=== PATIENT | female | born 1940 | race Caucasian/White ===

== ENCOUNTER 2020-08-05 11:02 | Outpatient (CLI) | payer MEDICARE, SELFPAY ==
--- NOTE | ~2020-08-05 | MM_ITS ---
EXAMINATION: MM scrn mayra implant BI w abilio HISTORY: Screening mammogram TECHNIQUE: Craniocaudal and mediolateral oblique 3-D tomosynthesis images with implant displacement a nd synthetic 2-D images were generated. Craniocaudal and mediolateral oblique views of the breasts wi thout implant displacement were obtained using full field digital mammography. CAD analysis was submi tted and interpreted. COMPARISON: Comparison to multiple prior studies sequentially, with oldest reviewed study dated 06/22. BREAST PARENCHYMAL COMPOSITION: There are scattered areas of fibroglandular density. FINDINGS: There are partially calcified breast implants. There is no evidence of suspicious mass, stacey cification, or architectural distortion to suggest malignancy in either breast. There has been no rama picious interval change. IMPRESSION: 1. No mammographic evidence of malignancy. 2. Recommend routine screening mammography in one year. BI-RADS Category 2: Benign finding(s). Reviewed, dictated and finalized at location A. MAKER
== END 2020-08-05 11:03 | disposition home or self-care (01) ==
LOC: ANHIMG 11:04
PROVIDERS: PCP Family Medicine; Visit Provider Family Medicine
DX: Z12.31 Encounter for screening mammogram for malignant neoplasm of breast (principal)
CPT/HCPCS: 77063; 77067

== ENCOUNTER → 2021-02-05 12:29 | Outpatient (CLI) | payer MEDICARE, SELFPAY ==
--- NOTE | ~2021-02-05 | MR_ITS ---
EXAMINATION: MR brain/brain stem wo elaine EXAM DATE: 02/05/2021 13:12 INDICATION: F03.90 - Unspecified dementia without behavioral disturbance. Difficulty with speech. Mem ory loss. TECHNIQUE: Magnetic resonance imaging (MRI) of the brain/brain stem obtained without contrast. Ann al T1, axial diffusion, gradient echo (T2*), T1, T2, FLAIR sequences obtained. There is no prior st udy for comparison. FINDINGS: There are no areas of restricted diffusion to suggest acute infarction. There is no acute hemorrhage seen on the T2*, a hemosiderin sensitive sequence. No intraparenchymal brain mass lesion. There is mild to moderate periventricular and subcortical T2/FLAIR signal hyperintensity, nonspecifi c but probably related to small vessel ischemic disease (microangiopathy). There is mild to moderat e prominence of the sulci and ventricles related to cerebral atrophy. There are no extra-axial analia ections. Flow voids are seen in the cerebral arteries on the T2-weighted sequences consistent with t heir expected patency. Patient has had bilateral ocular lens surgery. Both globes have slightly asph erical shape, more on the left. Soft tissue is unremarkable. IMPRESSION: Mild to moderate age-related findings. Reviewed, dictated and finalized at location B.
== END ==
PROVIDERS: PCP Family Medicine; Visit Provider Physician Assistant Medical
DX: F03.90 Unspecified dementia, unspecified severity, without behavioral disturbance, psychotic disturbance, mood disturbance, and anxiety (principal)
CPT/HCPCS: 70551

== ENCOUNTER → 2021-03-09 13:15 | Outpatient (CLI) | payer MEDICARE, SELFPAY ==
--- NOTE | ~2021-03-09 | XR_ITS ---
EXAMINATION: XR wrist RT min 3V DATE: 03/09/2021 15:41 INDICATION: Right wrist pain. TECHNIQUE: 4 views of right wrist were obtained. COMPARISON: None. FINDINGS: Bone alignment is normal. No fracture. There is severe osteoarthritis of triscaphe joint, f irst carpometacarpal joint, and pisotriquetral joint. IMPRESSION: 1. Polyarticular osteoarthritis. Reviewed, dictated and finalized at location A.
--- NOTE | ~2021-03-09 | XR_ITS ---
EXAMINATION: XR shoulder RT min 2V DATE: 03/09/2021 15:41 INDICATION: Right shoulder pain. TECHNIQUE: 4 views of right shoulder were obtained. COMPARISON: Right humerus radiographs 10/16/2014 FINDINGS: Bone alignment is normal. No acute fracture. There is an old healed fracture deformity of s urgical neck of proximal right humerus. There is mild osteoarthritis of glenohumeral joint and severe osteoarthritis of acromioclavicular joint. IMPRESSION: 1. Polyarticular osteoarthritis. Reviewed, dictated and finalized at location A.
--- NOTE | ~2021-03-09 | XR_ITS ---
EXAMINATION: XR hip LT min 3V w AP pelvis DATE: 03/09/2021 15:41 INDICATION: Left hip pain TECHNIQUE: Anteroposterior view of the pelvis and anteroposterior and frog-leg lateral views of the l eft hip were obtained. COMPARISON: None. FINDINGS: Alignment is normal. No fracture or suspected avascular necrosis. Bilateral hip joint spaces are norm al. Mild bilateral sacroiliac osteoarthritis. Severe lower lumbar spondylosis. Multiple phleboliths i n the pelvis. IMPRESSION: 1. Normal bilateral hips. 2. Severe lower lumbar spondylosis. Reviewed, dictated and finalized at location A.
== END ==
PROVIDERS: PCP Family Medicine; Visit Provider Family Medicine
DX: M47.896 Other spondylosis, lumbar region (principal); M19.031 Primary osteoarthritis, right wrist; M19.011 Primary osteoarthritis, right shoulder
CPT/HCPCS: 73030; 73110; 73502

== ENCOUNTER 2021-07-24 10:21 | Outpatient (CLI) | payer MEDICARE, SELFPAY ==
[2021-07-24 10:52] LABS: Alanine Aminotransferase 25 U/L (4-35); Albumin Level 4.6 g/dL (3.5-5.1); Alkaline Phosphatase 120 U/L (38-126); Anion Gap 13 mmol/L (8-16); Aspartate Amino Transferase 33 U/L (14-36); Bilirubin,Total 0.6 mg/dL (0.2-1.3); Blood Urea Nitrogen 17 mg/dL (7-17); Calcium 9.5 mg/dL (8.4-10.2); Carbon Dioxide 25 mmol/L (22-30); Chloride 106 mmol/L (98-107); Cholesterol 145 mg/dL (0-200); Estimated Glomerular Filt Rate > 60; Glucose 104 mg/dL (65-110); HDL Direct 56 mg/dL; Potassium 3.7 mmol/L (3.4-5.0); Sodium 144 mmol/L (137-145); Triglycerides 138 mg/dL (<150)
[2021-07-24 11:02] LABS: LDL Cholesterol Direct 48 mg/dL
== END 2021-07-24 10:22 | disposition home or self-care (01) ==
PROVIDERS: PCP Family Medicine; Visit Provider Family Medicine
DX: E78.2 Mixed hyperlipidemia (principal); E55.9 Vitamin D deficiency, unspecified; M81.0 Age-related osteoporosis without current pathological fracture; I10 Essential (primary) hypertension
CPT/HCPCS: 36415; 80053; 80061; 82306

== ENCOUNTER → 2021-08-10 09:54 | Outpatient (CLI) | payer MEDICARE, SELFPAY ==
--- NOTE | ~2021-08-10 | DEXA_ITS ---
Bone Density Report Name: Candice Forde Age: 80 Sex: Female Ethnicity: White Date of : 1940 Indication: osteopenia; monitoring treatment; height loss; prior fracture; hysterectomy; postmenopausal Referring Provider: ANDRE SAMANO Study: Bone densitometry was performed. Exam Date: August 10, 2021 Accession number: [id number] Bone Density: Region BMD T-score Z-score Classification AP Spine (L1-L4) 1.307 2.4 5.0 Normal Femoral Neck (Left) 0.593 -2.3 0.0 Osteopenia Total Hip (Left) 0.766 -1.4 0.6 Osteopenia Femoral Neck (Right) 0.615 -2.1 0.2 Osteopenia Total Hip (Right) 0.818 -1.0 1.0 Normal Total Hip Mean 0.792 -1.2 0.8 Osteopenia World Health Organization criteria for BMD impression classify patients as: Normal (T-score at or above -1.0), Osteopenia (T-score between -1.0 and -2.5), or Osteoporosis (T-score at or below -2.5). 10-year Fracture Risk(1): Major Osteoporotic Fracture 24% Hip Fracture 6.8% Reported Risk Factors: [place] (), Neck BMD=0.593, BMI=29.1, previous fracture (1) FRAX(R) Version 3.08. Fracture probability calculated for an untreated patient. Fracture probability may be lower if the patient has received treatment. Previous Exams: Region Exam Age BMD T-score BMD Change BMD Change Date g/cm2 vs Baseline vs Previous AP Spine(L1-L4) 08/10/2021 80 1.307 2.4 0.150 0.150 01/29/2003 62 1.157 1.0 Total Hip(Left) 08/10/2021 80 0.766 -1.4 -0.026 -0.026 01/29/2003 62 0.792 -1.2 Total Hip(Right) 08/10/2021 80 0.818 -1.0 0.007 0.007 01/29/2003 62 0.810 -1.1 *Denotes significance at 95% confidence level, LSC for AP Spine = 0.022 g/cm2, LSC for Total Hip = 0.027 g/cm2 Clinical Information Provided by Patient: Has had a low trauma fracture Is being treated for osteoporosis Has used the following medications: Fosamax (i.e. alendronate), Vitamin D, Calcium Has the following medical conditions: Hysterectomy Patient maximum height was 63.75 Menopause Age: 34 No regular weight bearing exercise Onset of menses at age 15 Number of children 2 Impression: The patient has low bone mass, based on the Left Femoral Neck T-score. The patient has an estimated ten-year risk of hip fracture of 6.8% and an estimated ten-year risk of major fracture of 24%, based on the WHO FRAX algorithm. The patient has risk factors, including: previous fractu
--- NOTE | ~2021-08-10 | MM_ITS ---
EXAMINATION: MM scrn mayra implant BI w abilio HISTORY: Screening mammogram TECHNIQUE: Craniocaudal and mediolateral oblique 3-D tomosynthesis images with implant displacement a nd synthetic 2-D images were generated. Craniocaudal and mediolateral oblique views of the breasts wi thout implant displacement were obtained using full field digital mammography. CAD analysis was submi tted and interpreted. COMPARISON: 08/05/2020, 07/10/2019, 07/04/2018 bilateral implant screening mammogram examinations BREAST PARENCHYMAL COMPOSITION: The breasts are heterogeneously dense, which may obscure small masses . FINDINGS: Status post bilateral augmentation mammoplasty. There are multiple prominent amorphous noah gn calcifications adjacent to the implants. There is no evidence of suspicious mass, calcification, o r architectural distortion to suggest malignancy in either breast. There has been no suspicious inter vinita change. IMPRESSION: 1. No mammographic evidence of malignancy. 2. Recommend routine screening mammography in one year. BI-RADS Category 2: Benign finding(s). Reviewed, dictated and finalized at location A. R ARTIST
== END ==
PROVIDERS: PCP Family Medicine; Visit Provider Physician Assistant Medical
DX: Z12.31 Encounter for screening mammogram for malignant neoplasm of breast (principal); Z78.0 Asymptomatic menopausal state; M85.89 Other specified disorders of bone density and structure, multiple sites
CPT/HCPCS: 77063; 77067; 77080

== ENCOUNTER → 2021-08-13 14:26 | Outpatient (CLI) | payer MEDICARE, SELFPAY ==
--- NOTE | ~2021-08-13 | XR_ITS ---
XR thoracic spine 3V 08/13/2021 14:46 Indication: Thoracic back pain Procedure: KUB 4 views of the thoracic spine Comparison: Chest dated 10/05/2019 Findings: There is a shaped scoliosis. There is moderate multilevel thoracic spondylosis. There is se ajay spondylosis of the visualized lumbar spine. No acute fracture, subluxation or dislocation. No pa raspinal soft tissue abnormality. There is atherosclerosis of the aorta. Impression: 1: Moderate multilevel thoracic spondylosis with scoliosis. Reviewed, dictated and finalized at location A. RAM DIRECTOR/TRAFFIC DIRECTOR Impression: 1: Moderate multilevel thoracic spondylosis with scoliosis.
== END ==
PROVIDERS: PCP Family Medicine; Visit Provider Family Medicine
DX: M47.815 Spondylosis without myelopathy or radiculopathy, thoracolumbar region (principal)
CPT/HCPCS: 72072

== ENCOUNTER 2022-05-15 06:55 | Outpatient (CLI) | payer MEDICARE, SELFPAY ==
[2022-05-15 07:59] LABS: Basophils Percent Auto 0.5 % (0.2-1.2); Eosinophils Absolute Auto 0.2 K/mm3 (0-0.3); Eosinophils Percent Auto 1.7 % (0-4.4); Hematocrit 42.4 % (37.0-47.0); Hemoglobin 14.4 g/dL (12.0-15.0); Immature Granulocyte Absolute 0.02 K/mm3 (0.00-0.031); Immature Granulocyte Percent A 0.2 % (0-0.5); Lymphocytes Absolute Auto 3.58 K/mm3 (0.9-3.2); Mean Corpuscular Hemoglobin 31.4 pg (26-34); Mean Corpuscular Volume 92.6 fl (80-100); Mean Platelet Volume 10.4 fl (7.4-10.4); Monocytes Absolute Auto 0.7 K/mm3 (0.1-0.6); Monocytes Percent Auto 8.4 % (2.6-8.5); Neutrophils Absolute Auto 4.2 K/mm3 (1.3-6.7); Neutrophils Percent Auto 48.2 % (45.5-73.1); Platelet Count Result 249 k/mm3 (150-375); Red Blood Count 4.58 M/mm3 (4.2-5.4); Red Cell Distribution Width 12.1 % (11.5-14.5); White Blood Count 8.7 K/mm3 (4.5-10.0)
[2022-05-15 08:14] LABS: Alanine Aminotransferase 16 U/L (6-35); Albumin Level 4.4 g/dL (3.5-5.1); Alkaline Phosphatase 111 U/L (38-126); Anion Gap 10 mmol/L (8-16); Aspartate Amino Transferase 23 U/L (14-36); Bilirubin,Total 0.7 mg/dL (0.2-1.3); Blood Urea Nitrogen 19 mg/dL (7-17); Calcium 9.5 mg/dL (8.4-10.2); Carbon Dioxide 27 mmol/L (22-30); Chloride 105 mmol/L (98-107); Cholesterol 141 mg/dL (0-200); Estimated Glomerular Filt Rate > 60; Glucose 109 mg/dL (65-110); HDL Direct 57 mg/dL; Potassium 3.8 mmol/L (3.4-5.0); Sodium 142 mmol/L (137-145); Triglycerides 142 mg/dL (<150)
[2022-05-15 08:27] LABS: LDL Cholesterol Direct 39 mg/dL
[2022-05-15 09:12] LABS: Vitamin D 25 Hydroxy 93.5 ng/mL
== END 2022-05-15 06:56 | disposition home or self-care (01) ==
PROVIDERS: PCP Family Medicine; Visit Provider Family Medicine
DX: E53.8 Deficiency of other specified B group vitamins (principal); E55.9 Vitamin D deficiency, unspecified; I10 Essential (primary) hypertension
CPT/HCPCS: 36415; 80053; 80061; 82306; 82607; 85025

== ENCOUNTER 2022-05-22 11:43 | Outpatient (CLI) | payer MEDICARE, SELFPAY | END 2022-05-22 11:44 | disposition home or self-care (01) | PROVIDERS: PCP Family Medicine; Visit Provider Family Medicine | DX: R53.83 Other fatigue (principal) | CPT/HCPCS: 36415; 84443 ==

== ENCOUNTER → 2022-06-11 13:52 | Outpatient (CLI) | payer MEDICARE, SELFPAY ==
--- NOTE | ~2022-06-11 | CT_ITS ---
EXAMINATION:CT diagnostic chest wo con DATE: 06/11/2022 14:10 INDICATION: Chronic cough. TECHNIQUE: Computed tomography (CT) of the chest was performed without intravenous contrast. Automate d exposure control and iterative reconstruction technique were employed. The dose-length product (DLP ) was 151.32 mGy-cm. COMPARISON: None. FINDINGS: The lungs demonstrate mild atelectasis. A calcified left lung nodule and calcified left hil ar lymph nodes are consistent with old granulomatous disease. No pleural effusion. The heart size is normal. There are coronary artery calcifications. No pericardial effusion. There is mild right paratr acheal lymphadenopathy, likely reactive. Breast implants are noted. 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. There is severe cervical and thoracic spondylosis. IMPRESSION: 1. No etiology for chronic cough. Reviewed, dictated and finalized at location A.
== END ==
PROVIDERS: PCP Family Medicine; Visit Provider Family Medicine
DX: R05.3 Chronic cough (principal)
CPT/HCPCS: 71250

== ENCOUNTER 2022-07-29 09:14 | Outpatient (CLI) | payer MEDICARE, SELFPAY ==
[2022-07-29 09:26] LABS: Basophils Percent Auto 0.3 % (0.2-1.2); Eosinophils Absolute Auto 0.2 K/mm3 (0-0.3); Eosinophils Percent Auto 1.7 % (0-4.4); Hematocrit 43.1 % (37.0-47.0); Hemoglobin 14.5 g/dL (12.0-15.0); Immature Granulocyte Absolute 0.02 K/mm3 (0.00-0.031); Immature Granulocyte Percent A 0.2 % (0-0.5); Lymphocytes Absolute Auto 2.72 K/mm3 (0.9-3.2); Lymphocytes Percent Auto 29.4 % (18.3-44.2); Mean Corpuscular HGB Conc 33.6 g/dl (32-36); Mean Corpuscular Hemoglobin 31.5 pg (26-34); Mean Corpuscular Volume 93.7 fl (80-100); Mean Platelet Volume 9.3 fl (7.4-10.4); Monocytes Absolute Auto 0.8 K/mm3 (0.1-0.6); Monocytes Percent Auto 8.1 % (2.6-8.5); Neutrophils Absolute Auto 5.6 K/mm3 (1.3-6.7); Neutrophils Percent Auto 60.3 % (45.5-73.1); Platelet Count Result 241 k/mm3 (150-375); Red Cell Distribution Width 11.9 % (11.5-14.5); White Blood Count 9.2 K/mm3 (4.5-10.0)
== END 2022-07-29 09:15 | disposition home or self-care (01) ==
PROVIDERS: PCP Family Medicine; Visit Provider Family Medicine
DX: E53.8 Deficiency of other specified B group vitamins (principal)
CPT/HCPCS: 36415; 82607; 85025

== ENCOUNTER 2022-08-03 10:35 | Emergency (ER) | payer MEDICARE, SELFPAY ==
[2022-08-03 10:58] VITALS: BP 127/62; PULSE 69; RESP 18; TEMP 36.4; O2SAT 99
[2022-08-03 12:23] LABS: Influenza A QL RT-PCR Negative (Negative); Influenza B QL RT-PCR Negative (Negative); SARS-CoV-2 RNA PCR Negative
--- NOTE | 2022-08-03 12:35 | ED.URI ---
HPI - URI/Sore Throat General Chief Complaint: Upper Respiratory Infection Stated Complaint: URI SENT IN FOR A COVID TEST Time Seen by Provider: 08/03/22 12:04 History of Present Illness HPI Narrative: Pt sent in by PCP because was complaining of ear pain and runny nose and was to see her PCP but got confused with instructions on covid test and PCP wanted her seen in ER. Pt denies fever or cough or WALL. Related Data Allergies Allergy/AdvReac Type Severity Reaction Status Date / Time clotrimazole Allergy Mild Unknown Verified 08/02/22 08:43 fluticasone furoate Allergy Unknown throat Verified 08/02/22 08:43 [From Breo Ellipta] swelling metoprolol Allergy Unknown Unknown Verified 08/02/22 08:43 vilanterol Allergy Unknown throat Verified 08/02/22 08:43 [From Breo Ellipta] swelling phentermine AdvReac Unknown unknown Verified 08/02/22 08:43 Review of Systems Review of Systems: All systems reviewed & are unremarkable except as noted in HPI and below PMFSH Past Medical History Medical History (Updated 08/03/22 @ 12:40 by Radha Chong III, DO) Abdominal adhesions Bronchitis Calcification of spleen ct .09.23: 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 Diverticulitis Hereditary and idiopathic neuropathy, unspecified Irritant dermatitis Light-headed feeling Other hammer toe(s) (acquired), unspecified foot Overweight (BMI 25.0-29.9) Parotid gland fullness Thrombosed external hemorrhoid TMJ dysfunction Family History Family History Father Depression Family history of suicide Mother Hypertension Family history of cardiovascular disease Other Family history of Alzheimer's disease Social History Social History Smoking status: Never smoker Second hand tobacco smoke exposure: No Alcohol intake: never Exam Const: General: healthy appearing Nutritional Appearance: well nourished Orientation/consciousness: patient oriented x3 Limitations: no limitations HENMT: Head: normal to inspection Ears: external ears normal and TM's normal bilaterally (bulging b/l but no erythema) Face/Nose/Sinus: Nasal discharge present Mouth: Yes Normal oral and palatal mucosa present Teeth and gingiva: dentition normal Throat: posterior oropharynx normal Eyes: EOM: EOMs intact bilaterally Neck: Neck: normal visual inspection, no lymphadenopathy and no meningeal signs Resp: Effort & Inspection: normal respiratory effort Auscultation: clear to auscultation bilaterally Cardio: Rate: regular rate Rhythm: regular rhythm GI: GI Palp: Yes Soft to palpation Auscultation: normal bowel sounds Skin: General skin exam: normal color Rashes: no rashes Neuro: General: patient oriented x3, moves all extremities, no meningeal signs and no focal motor deficits Cranial nerves: Yes Nystagmus not present Speech: normal speech Extrem: General: normal to inspection and no clubbing, cyanosis or edema Psych: Mental Status: mental status grossly normal Affect: normal affect Attitude: cooperative Course Vital Signs Vital signs: Vital Signs Temperature 97.6 F 08/03/22 10:58 Pulse Rate 69 08/03/22 10:58 Respiratory Rate 18 08/03/22 10:58 Blood Pressure 127/62 08/03/22 10:58 Pulse Oximetry 99 08/03/22 10:58 Oxygen Delivery Room Air 08/03/22 10:58 Temperature 97.6 F 08/03/22 10:58 Pulse Rate 70 08/03/22 13:26 Respiratory Rate 14 08/03/22 13:26 Blood Pressure 130/73 08/03/22 13:26 Pulse Oximetry 98 08/03/22 13:26 Oxygen Delivery Room Air 08/03/22 10:58 MDM - URI/Sore Throat Lab Data Labs: Lab Results 08/03/22 Range/Units 11:39 Influenza A (RT-PCR) Negative (Negative) Influenza B (RT-PCR) Negative (Negative) SARS-CoV-2 RNA (RT-PCR) Negative Discharge Plan Discharge Clinical Impression: Upper respirat
[2022-08-03 13:26] VITALS: BP 130/73; PULSE 70; RESP 14; O2SAT 98
== END 2022-08-03 13:29 | disposition home or self-care (01) ==
LOC: ANHED 12:46
PROVIDERS: Emergency Medicine; Emergency Provider Emergency Medicine; PCP Family Medicine
DX: J06.9 Acute upper respiratory infection, unspecified (principal); Z20.822 Contact with and (suspected) exposure to COVID-19; G60.9 Hereditary and idiopathic neuropathy, unspecified; E66.3 Overweight; Z68.25 Body mass index [BMI] 25.0-25.9, adult
CPT/HCPCS: 87502; 99283; U0003; U0005

== ENCOUNTER 2022-08-30 10:52 | Outpatient (CLI) | payer MEDICARE, SELFPAY ==
--- NOTE | ~2022-08-30 | MM_ITS ---
EXAMINATION: MM scrn mayra implant BI w abilio HISTORY: Screening mammogram TECHNIQUE: Craniocaudal and mediolateral oblique 3-D tomosynthesis images with implant displacement a nd synthetic 2-D images were generated. Craniocaudal and mediolateral oblique views of the breasts wi thout implant displacement were obtained using full field digital mammography. CAD analysis was submi tted and interpreted. COMPARISON: 08/10/2021, 08/05/2020, 07/10/2019 BREAST PARENCHYMAL COMPOSITION: There are scattered areas of fibroglandular density. FINDINGS: There is no evidence of suspicious mass, calcification, or architectural distortion to sugg est malignancy in either breast. There has been no suspicious interval change. IMPRESSION: 1. No mammographic evidence of malignancy. 2. Recommend routine screening mammography while the patient remains in good health. BI-RADS Category 1: Negative Reviewed, dictated and finalized at location A. TER IMPRESSION: 1. No mammographic evidence of malignancy. 2. Recommend routine screening mammography while the patient remains in good he alth. BI-RADS Category 1: Negative
== END 2022-08-30 10:53 | disposition home or self-care (01) ==
PROVIDERS: PCP Family Medicine; Visit Provider Family Medicine
DX: Z12.31 Encounter for screening mammogram for malignant neoplasm of breast (principal)
CPT/HCPCS: 77063; 77067

== ENCOUNTER 2022-09-14 01:29 | Day surgery (SDC) | payer MEDICARE, SELFPAY ==
[2022-09-03 14:03] VITALS: BMI 26.2
--- NOTE | 2022-09-14 12:03 | WPDANESEPPF ---
Anes - Initial Pre Proc Eval Procedure: Operation Date: 09/14/22 13:45 Proposed Procedures p Esophagogastroduodenoscopy - Duong Zayas MD Date/Time: 09/14/22 12:03 Surgeon: Duong Zayas MD Pre Op Diagnosis: dysphagia Patient Data Age: 82 Gender: F Height: 1.57 m Weight: 65 kg Allergies Allergy/AdvReac Type Severity Reaction Status Date / Time clotrimazole Allergy Mild Unknown Verified 09/14/22 12:04 fluticasone furoate Allergy Unknown throat Verified 09/14/22 12:04 [From Breo Ellipta] swelling metoprolol Allergy Unknown Unknown Verified 09/14/22 12:04 vilanterol Allergy Unknown throat Verified 09/14/22 12:04 [From Breo Ellipta] swelling phentermine AdvReac Unknown unknown Verified 09/14/22 12:04 Home Medications Medication Instructions Recorded Confirmed Type alendronate 35 mg tablet See Rx Instructions .Route 11/18/21 09/09/22 Rx .COMPLEX #12 tabs tramadol 50 mg tablet 50 mg PO Q6H PRN pain 30 days #28 12/15/21 09/09/22 Rx tabs celecoxib 200 mg capsule See Rx Instructions .Route 02/02/22 09/09/22 Rx .COMPLEX #90 caps bupropion HCl 300 mg 24 hr tablet, See Rx Instructions .Route 02/04/22 09/09/22 Rx extended release .COMPLEX #90 tabs lorazepam 1 mg tablet 1 mg PO TID PRN anxiety #90 tabs 05/04/22 09/09/22 Rx atenolol 50 mg tablet See Rx Instructions .Route 05/24/22 09/09/22 Rx .COMPLEX #180 tabs amlodipine 5 mg-atorvastatin 20 mg See Rx Instructions .Route 08/19/22 09/09/22 Rx tablet .COMPLEX #90 tabs Patient hx anesthesia problems: none Family hx anesthesia problems: none Results Review: All pre-operative results and documents have been reviewed as part of the pre-operative evaluation. [facility] Past Medical History Medical History Abdominal adhesions Bronchitis Calcification of spleen ct 06.14.22: 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 Diverticulitis Hereditary and idiopathic neuropathy, unspecified Irritant dermatitis Light-headed feeling Other hammer toe(s) (acquired), unspecified foot Overweight (BMI 25.0-29.9) Parotid gland fullness Thrombosed external hemorrhoid TMJ dysfunction Surgical History Surgical History H/O total hysterectomy History of appendectomy History of bilateral knee replacement Family History Family History Father Depression Family history of suicide Mother Hypertension Family history of cardiovascular disease Other Family history of Alzheimer's disease Social History Social History Smoking status: Never smoker Second hand tobacco smoke exposure: No Alcohol intake: never Substance use type: does not use Lack of Food: Never True Current Housing: I Have Housing Concerned About Future Housing: No Difficulty Paying Gas/Electric Bills: No Difficulty Paying for Meds: No Currently Unemployed: No Education: Master's Degree or Higher Difficulty w/ Childcare or Family Care: No Living arrangements: alone Anes - Eval Final PreProcedure Day of Procedure 09/14/22 12:03 Patient weight: normal Heart: regular rate and rhythm Lungs: clear to auscultation Airway: Mallampati scale class II Neurological: alert and oriented Last oral intake: >/= 8 hours ASA classification: III Emergent: no Anesthetic plan: proceed Anesthesia type and monitoring: general GIVS and standard monitoring Results Review: All pre-operative results and documents have been reviewed as part of the pre-operative evaluation. Informed Consent: The patient's anesthetic plan and its attendant risks and benefits were discussed with the patient/family/POA. Questions were solicited and answers provided to the satisfaction of the patient/family/POA.
[2022-09-14 12:07] VITALS: BP 149/74; PULSE 88; RESP 21; TEMP 36.2; O2SAT 95
--- NOTE | 2022-09-14 12:19 | P.HP_ITS ---
History of Present Illness History of Present Illness Consent: Risks, benefits, and alternatives have been discussed and questions answered. Patient agrees to proceed with procedure. Chief complaint: dysphagia Narrative: Candice Forde is a 82 year old female [facility] Past Medical History Medical History Abdominal adhesions Bronchitis Calcification of spleen ct 06.14.22: 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 Diverticulitis Hereditary and idiopathic neuropathy, unspecified Irritant dermatitis Light-headed feeling Other hammer toe(s) (acquired), unspecified foot Overweight (BMI 25.0-29.9) Parotid gland fullness Thrombosed external hemorrhoid TMJ dysfunction Surgical History Surgical History H/O total hysterectomy History of appendectomy History of bilateral knee replacement Family History Family History Father Depression Family history of suicide Mother Hypertension Family history of cardiovascular disease Other Family history of Alzheimer's disease Social History Social History Smoking status: Never smoker Second hand tobacco smoke exposure: No Alcohol intake: never Substance use type: does not use Lack of Food: Never True Current Housing: I Have Housing Concerned About Future Housing: No Difficulty Paying Gas/Electric Bills: No Difficulty Paying for Meds: No Currently Unemployed: No Education: Master's Degree or Higher Difficulty w/ Childcare or Family Care: No Living arrangements: alone Meds Home Medications and Allergies Home Medications Medication Instructions Recorded Confirmed Type alendronate 35 mg tablet See Rx Instructions .Route 11/18/21 09/09/22 Rx .COMPLEX #12 tabs tramadol 50 mg tablet 50 mg PO Q6H PRN pain 30 days #28 12/15/21 09/09/22 Rx tabs celecoxib 200 mg capsule See Rx Instructions .Route 02/02/22 09/09/22 Rx .COMPLEX #90 caps bupropion HCl 300 mg 24 hr tablet, See Rx Instructions .Route 02/04/22 09/09/22 Rx extended release .COMPLEX #90 tabs lorazepam 1 mg tablet 1 mg PO TID PRN anxiety #90 tabs 05/04/22 09/09/22 Rx atenolol 50 mg tablet See Rx Instructions .Route 05/24/22 09/09/22 Rx .COMPLEX #180 tabs amlodipine 5 mg-atorvastatin 20 mg See Rx Instructions .Route 08/19/22 09/09/22 Rx tablet .COMPLEX #90 tabs Allergies Allergy/AdvReac Type Severity Reaction Status Date / Time clotrimazole Allergy Mild Unknown Verified 09/14/22 12:04 fluticasone furoate Allergy Unknown throat Verified 09/14/22 12:04 [From Breo Ellipta] swelling metoprolol Allergy Unknown Unknown Verified 09/14/22 12:04 vilanterol Allergy Unknown throat Verified 09/14/22 12:04 [From Breo Ellipta] swelling phentermine AdvReac Unknown unknown Verified 09/14/22 12:04 Vital Signs Vital Signs - 24 hr 09/14/22 12:07 Temperature 97.1 F L Pulse Rate 88 Respiratory Rate 21 H Blood Pressure 149/74 H Pulse Oximetry 95 Oxygen Delivery Room Air
[2022-09-14] MEDS: LACTATED RINGERS 1,000 ML 150 ML IV CONT (12:27)
[2022-09-14 13:25] VITALS: BP 125/72; PULSE 80; RESP 22; O2SAT 94
[2022-09-14 13:35] VITALS: BP 135/71; PULSE 78; RESP 18; O2SAT 95
[2022-09-14 13:45] VITALS: BP 139/79; PULSE 84; RESP 18; O2SAT 95
== END 2022-09-14 14:08 | disposition home or self-care (01) ==
PROVIDERS: PCP Family Medicine; Visit Provider Internal Medicine Gastroenterology
PROC: 0DJ08ZZ Inspection of Upper Intestinal Tract, Via Natural or Artificial Opening Endoscopic (ICD-10-PCS; CPT 43235; principal; 2022-09-14 13:45)
DX: K22.2 Esophageal obstruction (principal)
CPT/HCPCS: 43450; J2704; J7120

== ENCOUNTER 2022-11-29 09:25 | Outpatient (CLI) | payer MEDICARE, SELFPAY ==
--- NOTE | 2022-11-29 09:37 | ECG_ITS ---
Measurements Intervals Davis Rate: 68 P: 18 NH: 161 QRS: 29 QRSD: 83 T: 28 QT: 366 QTc: 391 Interpretive Statements SINUS RHYTHM CANNOT RULE OUT SEPTAL INFARCT, AGE INDETERMINATE BORDERLINE ECG BASELINE ARTIFACT NO PREVIOUS ECG AVAILABLE FOR COMPARISON Electronically Signed On 11-29-2022 14:36:27 BATTERY REPAIRER by Jean-Claude Simon M.D.
== END 2022-11-29 09:26 | disposition home or self-care (01) ==
PROVIDERS: PCP Family Medicine; Visit Provider Orthopaedic Surgery
DX: Z01.810 Encounter for preprocedural cardiovascular examination (principal); I10 Essential (primary) hypertension
CPT/HCPCS: 93005

== ENCOUNTER 2022-12-02 00:40 | Day surgery (SDC) | payer MEDICARE, SELFPAY ==
--- NOTE | 2022-11-26 14:21 | PC.NURSE ---
Report to the Outpatient Waiting Room, entrance under the green pavilion located off [facility], at time __1000 on date ___12/02/22____. Planned Procedure Time: __1200 . Time changes happen often and if your time is changed the preop area will call you the afternoon before. - You and your visitor will be asked to self-screen and do not enter if you have any COVID symptoms. - Only one visitor is requested with a max of two and NO children visitors are allowed at this time. - The patient visitor may be requested to leave or wait in car when not with patient due to distancing restrictions. - A mask is optional within the hospital at this time. Patients may have clear liquids (water, carbonated beverages, clear teas, apple juice) until 3 hours prior to surgery with a maximum of 20 ounces. - No food from midnight until time of surgery - Infants may have breast milk until 4 hours before surgery, formula 6 hours prior to surgery. - Children will be allowed to drink immediately following surgery. If applicable, please bring a bottle or sippy cup to assist with drinking. Juice, water, soda, and popsicles are readily available. For infants on formula, please bring formula the day of surgery. Pacifiers are allowed. Take the following medications with a SIP of water the morning of surgery: ___ATENOLOL,BUPROPION DO NOT STOP ANY OF YOUR OTHER PRESCRIPTION MEDICATIONS PRIOR TO SURGERY ?EXCEPT THE FOLLOWING Medications to discontinue per physician ____ALL VITAMINS/SUPPLEMENTS 3 DAYS PRE OP .LAST DOSE 11/28/22 Please no make-up, nail yi, hairspray, perfume, deodorant, or body powder the day of surgery. No jewelry (including any body piercings) or valuables the day of surgery, leave them at home. Please take a shower or bath the night before, or the morning of, surgery with an antibacterial soap. Wear comfortable, loose fitting clothing. Children are encouraged to wear pajamas. - Jewelry must be removed prior to entering the operating room. Rings and piercings that are not removed may be cut off. - The hospital will not accept responsibility for valuables. - Please leave all valuables, including medications, at home the day of surgery. If you are going home after surgery, a licensed catshovel driver must drive you home. - NO public transportation without another adult if you receive anesthesia. - We recommend that an adult stay with you for 24 hours following discharge. - We also recommend that you do not drive, make important decision, drink alcoholic beverages, or take any drugs that were not prescribed by your health care provider for at least 24 hours after your discharge time. For Pediatric surgeries, we recommend two adults accompany the child home. Follow any additional instructions given to you from your surgeon. If you or anyone in your household have experienced Covid symptoms in the past week, please notify your surgeon or the nurse liaison at the phone number below for possible testing. Telephone instructions given to __PATIENT and asked if any additional questions and then verbalized understanding. Patient advised to call surgeon office or pre surgery nurse liaison [phone] if any additional questions.
--- NOTE | 2022-11-26 14:27 | PC.NURSE ---
Report to the Outpatient Waiting Room, entrance under the green pavilion located off [facility], at time _1000 on date ___12/02/22____. Planned Procedure Time: ___1200 . Time changes happen often and if your time is changed the preop area will call you the afternoon before. - You and your visitor will be asked to self-screen and do not enter if you have any COVID symptoms. - Only one visitor is requested with a max of two and NO children visitors are allowed at this time. - The patient visitor may be requested to leave or wait in car when not with patient due to distancing restrictions. - A mask is optional within the hospital at this time. Patients may have clear liquids (water, carbonated beverages, clear teas, apple juice) until 3 hours prior to surgery with a maximum of 20 ounces. - No food from midnight until time of surgery - Infants may have breast milk until 4 hours before surgery, formula 6 hours prior to surgery. - Children will be allowed to drink immediately following surgery. If applicable, please bring a bottle or sippy cup to assist with drinking. Juice, water, soda, and popsicles are readily available. For infants on formula, please bring formula the day of surgery. Pacifiers are allowed. Take the following medications with a SIP of water the morning of surgery: ___ATENOLOL,BUPROPION DO NOT STOP ANY OF YOUR OTHER PRESCRIPTION MEDICATIONS PRIOR TO SURGERY ?EXCEPT THE FOLLOWING Medications to discontinue per physician ___ALL VITAMNS/SUPPLEMENTS 3 DAYS PRE OP .LAST DOSE 11/28/22 Please no make-up, nail armenian, hairspray, perfume, deodorant, or body powder the day of surgery. No jewelry (including any body piercings) or valuables the day of surgery, leave them at home. Please take a shower or bath the night before, or the morning of, surgery with an antibacterial soap. Wear comfortable, loose fitting clothing. Children are encouraged to wear pajamas. - Jewelry must be removed prior to entering the operating room. Rings and piercings that are not removed may be cut off. - The hospital will not accept responsibility for valuables. - Please leave all valuables, including medications, at home the day of surgery. If you are going home after surgery, a licensed mobile lounge driver or operator must drive you home. - NO public transportation without another adult if you receive anesthesia. - We recommend that an adult stay with you for 24 hours following discharge. - We also recommend that you do not drive, make important decision, drink alcoholic beverages, or take any drugs that were not prescribed by your health care provider for at least 24 hours after your discharge time. For Pediatric surgeries, we recommend two adults accompany the child home. Follow any additional instructions given to you from your surgeon. If you or anyone in your household have experienced Covid symptoms in the past week, please notify your surgeon or the nurse liaison at the phone number below for possible testing. Telephone instructions given to and asked if any additional questions and then verbalized understanding. Patient advised to call surgeon office or pre surgery nurse liaison [phone] if any additional questions.
[2022-11-26 14:43] VITALS: BMI 25.6
--- NOTE | 2022-12-01 11:58 | WPDANESEPPF ---
Anes - Initial Pre Proc Eval Procedure: Operation Date: 12/02/22 12:00 Proposed Procedures p Left Foot Hallux Valgus Correction with Phalangeal Osteotomy, - Marcello Bauer MD s Second and Third Hammer Toe Correction Left Foot - Marcello Bauer MD Date/Time: 12/01/22 11:58 Surgeon: Marcello Bauer MD Pre Op Diagnosis: left foot Hallux Valgus, 2nd&3rd hammer toe lft ft Patient Data Age: 82 Gender: F Height: 1.57 m Weight: 63.5 kg Allergies Allergy/AdvReac Type Severity Reaction Status Date / Time metoprolol Allergy Severe Itching Verified 12/02/22 10:41 vilanterol Allergy Severe throat Verified 12/02/22 10:41 [From Breo Ellipta] swelling clotrimazole Allergy Mild Unknown Verified 12/02/22 10:41 fluticasone furoate Allergy Unknown throat Verified 12/02/22 10:41 [From Breo Ellipta] swelling phentermine AdvReac Unknown unknown Verified 12/02/22 10:41 Narcotics AdvReac Unknown Vomiting Uncoded 12/02/22 10:41 Home Medications Medication Instructions Recorded Confirmed Type alendronate 35 mg tablet See Rx Instructions .Route 11/18/21 12/02/22 Rx .COMPLEX #12 tabs celecoxib 200 mg capsule See Rx Instructions .Route 02/02/22 12/02/22 Rx .COMPLEX #90 caps atenolol 50 mg tablet See Rx Instructions .Route 05/24/22 12/02/22 Rx .COMPLEX #180 tabs amlodipine 5 mg-atorvastatin 20 mg See Rx Instructions .Route 08/19/22 12/02/22 Rx tablet .COMPLEX #90 tabs bupropion HCl 300 mg 24 hr tablet, See Rx Instructions .Route 10/25/22 12/02/22 Rx extended release .COMPLEX #90 tabs lorazepam 1 mg tablet 1 mg PO TID PRN anxiety #90 tabs 11/15/22 12/02/22 Rx calcium carbonate 600 mg-vitamin 1 tablet PO DAILY 11/26/22 12/02/22 History D3 10 mcg (400 unit) tablet (Calcium 600 + D(3)) cholecalciferol (vitamin D3) 125 125 mcg PO DAILY 11/26/22 12/02/22 History mcg (5,000 unit) capsule cyanocobalamin (vitamin B-12) 500 500 mcg PO 5XW 11/26/22 12/02/22 History mcg tablet tramadol 50 mg tablet 50 mg PO Q4-6H PRN pain #30 tabs 12/02/22 Rx tramadol 50 mg tablet 50 mg PO Q6H PRN pain 30 days #28 12/02/22 Rx tabs Patient hx anesthesia problems: none Family hx anesthesia problems: none Results Review: All pre-operative results and documents have been reviewed as part of the pre-operative evaluation. [facility] Past Medical History Medical History (Updated 12/01/22 @ 11:59 by Hollis Live, ) Abdominal adhesions Bronchitis Calcification of spleen ct 06.14.22: 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 Diverticulitis Diverticulosis Dysphagia egd 09.14.22: schatzki's ring/ dilated Essential hypertension External hemorrhoids Hallux valgus Hammertoes of both feet Hereditary and idiopathic neuropathy, unspecified Irritant dermatitis Light-headed feeling Lumbago with sciatica, unspecified side Mixed hyperlipidemia Mucous cyst of toe Other hammer toe(s) (acquired), unspecified foot Overweight (BMI 25.0-29.9) Parotid gland fullness PONV (postoperative nausea and vomiting) Schatzki's ring Thrombosed external hemorrhoid TMJ dysfunction Surgical History Surgical History H/O total hysterectomy History of appendectomy History of bilateral knee replacement Family History Family History Father Depression Family history of suicide Mother Hypertension Family history of cardiovascular disease Other Family history of Alzheimer's disease Social History Social History Smoking status: Never smoker Second hand tobacco smoke exposure: No Alcohol intake: never Substance use type: does not use Lack of Food: Never True Current Housing: I Have Housing Concerned About Future Housing: No Difficulty Paying Gas/Electric Bills: No Difficulty Paying for Meds: No Currently U
--- NOTE | ~2022-12-02 | XR_ITS ---
EXAMINATION: XR surgery orthopedic DATE: 12/02/2022 13:37 INDICATION: Left hallux valgus. Hammertoes. TECHNIQUE: 4 intraoperative fluoroscopic images of left foot were obtained. I was not present. Fluoro scopy exposure time was 6 seconds. COMPARISON: Left foot radiographs 10/26/2022 FINDINGS: There is an osteotomy with staple fixation in first proximal phalanx. There are changes of arthrodesis procedure of second proximal interphalangeal joint. IMPRESSION: 1. Surgical changes in the left foot. Reviewed, dictated and finalized at location A. PING MACHINE OPERATOR
[2022-12-02 10:03] VITALS: BP 180/83; PULSE 69; RESP 16; TEMP 36.6; O2SAT 98
[2022-12-02] MEDS: ACETAMINOPHEN 500 MG TABLET 1000 MG PO (10:51)
[2022-12-02] MEDS: LACTATED RINGERS 1,000 ML 30 ML IV CONT (11:00)
[2022-12-02] MEDS: KETOROLAC 15 MG/ML VIAL (*BKC) IV PUSH (11:02)
--- NOTE | 2022-12-02 11:33 | SUR.PREOP ---
dr huertas here and will place briseida gibson.
--- NOTE | 2022-12-02 11:51 | WPDHPUPDATE1 ---
History and Physical Update Update Date/Time: 12/02/22 11:51 History and Physical has been reviewed, including an updated exam of the patient. There are NO changes in the patient's condition. Risks, benefits, and alternatives have been discussed and questions answered. Patient agrees to proceed with procedure.
[2022-12-02] MEDS: ceFAZolin 2 GM/D5W 50 ML 2 GM/50 ML BAG IVPB (12:26)
--- NOTE | 2022-12-02 12:29 | PCCCNOTE ---
Phone call received from Nurse Custom Clothier Johanna that Dr. Bauer will want home health set up for this patient and she will be discharging today. Johanna advised Dr. Bauer to call career technical education instructor. Awaiting contact. Did contact [facility], spoke with Kelsi. Can accept with start of services tomorrow, and therapy going out next week. Requested facesheet. Will need to know who will be signing orders. Will follow up once confirmation received from Dr. Bauer. Fax'd facesheet.
[2022-12-02] MEDS: BUPivacaine HCL 0.5% PF 30 ML VIAL 20 ML INFILTRATE (12:57)
[2022-12-02 13:40] VITALS: BP 149/74; PULSE 71; RESP 12; O2SAT 91
--- NOTE | 2022-12-02 13:42 | W.PM.PROC2 ---
Procedure Note - Detailed Date of Procedure 12/02/22 Pre-op Diagnosis left foot Hallux Valgus, 2nd&3rd hammer toe lft ft Post-op Diagnosis Same Procedure Performed Left hallux valgus correction with proximal phalangeal osteotomy, 2nd hammertoe correction with PIP arthrodesis, 3rd hammertoe correction flexor tenotomy Surgeon Marcello Bauer MD Diesel Trailer Mechanic 1st senior executive assistant Anesthesia MAC Indications 82-year-old with left toe deformity which causes impingement and ulceration between hallux and 2nd toe. Hammertoe deformity of the 2nd 3rd toe. Patient has failed conservative treatment Description of Procedure After informed consent was given, the operative extremity was marked in the preoperative holding area. The patient received intravenous antibiotics. The patient was brought to the operating room where they underwent a general anesthetic by the anesthesia team. The patient was positioned supine on the operating room table. A time-out was performed confirming the patient, site of the surgery, and the plan for surgery. The right lower extremity was then prepped and draped in the usual sterile surgical fashion using ChloraPrep skin solution. Foot and ankle were exsanguinated and a Esmarch bandage wrapped at the ankle as tourniquet. A longitudinal incision was then made along the medial border of the 1st ray centered over the medial eminence with a #15 blade knife. The previous incision was utilized. Hemostasis was controlled with electric cautery. The dorsal and plantar sensory nerves were identified and retracted bluntly. A medial capsulotomy was then performed. This was reflected off the medial eminence. The joint was inspected for evaluation of degenerative changes. A lateral release was then performed through the joint with a #15 blade knife. The medial eminence was then resected with a sagittal saw in line with the medial border of the foot. The wound was then thoroughly irrigated with antibiotic solution. The capsule was repaired through a drill hole in the distal 1st metatarsal with 0 Vicryl interrupted suture. The dorsal limb of the capsule was repaired with 00 Vicryl interrupted suture. Subcutaneous tissue was repaired with 000 Monocryl interrupted suture and the skin approximated with 0000 nylon running suture. Local anesthetic with 0.5% Marcaine plain was injected in the soft tissue. Clinically and fluoroscopically there was still hallux valgus interphalangeus present. Proximal phalanx osteotomy was indicated. Medial incision made along the proximal phalanx with 15 blade knife. Hemostasis controlled electrocautery. Dissection down to the medial aspect of the proximal phalanx. Retractors placed. Sagittal saw used to make a medial closing wedge osteotomy transversely across the proximal phalanx. Image intensification confirmed placement of the osteotomy. Fixation was achieved with the Arthrex 10 millimeter x 9 millimeter staple. Good stability and fixation were noted. Image intensification confirmed final alignment of the osteotomy and placement of the hardware. Overall alignment of the 1st ray was verified. Wound was thoroughly irrigated with antibiotic solution. Soft tissue closed with 000 Monocryl interrupted suture. Skin approximately 4 O nylon running suture. 2nd toe then addressed. Dorsal longitudinal incision made over the proximal interphalangeal joint of the 15 blade knife. Skin retractors placed in a dorsal capsulotomy performed. Collateral ligaments released. Distal end of the proximal phalanx resected with a bone cutter. Articular surface of the middle phalanx resected with rongeur. Joint irrigated and fixed with the Arthrex 14 mm hammertoe implant fixation. Image intensification confirmed position. wound irrigated and capsule repaired with 3-0 Monocryl interrupted suture. Skin repaired with 3-0 nylon interrupted suture. Third toe then addressed. Fifteen blade knife used to make a percutaneous tenotomy through the flexor
[2022-12-02 14:25] VITALS: BP 151/81; PULSE 67; RESP 16
[2022-12-02 14:26] VITALS: BP 163/81; PULSE 67; RESP 16; O2SAT 93
[2022-12-02 14:55] VITALS: BP 167/76; PULSE 66; RESP 16
[2022-12-02 15:25] VITALS: BP 170/85; PULSE 69; RESP 16
== END 2022-12-02 15:42 | disposition home or self-care (01) ==
PROVIDERS: PCP Family Medicine; Visit Provider Orthopaedic Surgery
PROC: (CPT 28299; principal; 2022-12-02 12:00)
PROC: (CPT 28298; 2022-12-02 12:00)
DX: M20.12 Hallux valgus (acquired), left foot (principal); M20.42 Other hammer toe(s) (acquired), left foot; I10 Essential (primary) hypertension; E78.2 Mixed hyperlipidemia
CPT/HCPCS: 28298; 28285 ×2; 93005; 99199; A9270; C1713; J0690; J1100; J1885; J2405; J2704; J7120

== ENCOUNTER 2023-02-03 00:17 | Day surgery (SDC) | payer MEDICARE, SELFPAY ==
[2023-01-28 11:36] VITALS: BMI 25.0
--- NOTE | 2023-01-28 13:49 | PC.NURSE ---
Report to the Outpatient Waiting Room, entrance under the green pavilion located off [facility], at time __7:00am on date __02/03/23 . Planned Procedure Time: __9:00AM . Time changes happen often and if your time is changed the preop area will call you the afternoon before. - You and your visitor will be asked to self-screen and do not enter if you have any COVID symptoms. - A mask is optional within the hospital at this time. Patients may have clear liquids (water, carbonated beverages, clear teas, apple juice) until 3 hours prior to surgery with a maximum of 20 ounces. - No food from midnight until time of surgery Take the following medications with a SIP of water the morning of surgery: ___AMLODIPINE, ATENOLOL, BUPROPION, LORAZEPAM NEEDED, TRAMADOL NEEDED DO NOT STOP ANY OF YOUR OTHER PRESCRIPTION MEDICATIONS PRIOR TO SURGERY ?EXCEPT THE FOLLOWING Medications to discontinue per physician ____HOLD ALL VITAMINS/SUPPLEMENTS 3 DAYS PRE-OP Date to take last dose____01/30/23 Please no make-up, nail indonesian, hairspray, perfume, deodorant, or body powder the day of surgery. No jewelry (including any body piercings) or valuables the day of surgery, leave them at home. Please take a shower or bath the night before, or the morning of, surgery with an antibacterial soap. Wear comfortable, loose fitting clothing. Children are encouraged to wear pajamas. - Jewelry must be removed prior to entering the operating room. Rings and piercings that are not removed may be cut off. - The hospital will not accept responsibility for valuables. - Please leave all valuables, including medications, at home the day of surgery. If you are going home after surgery, a licensed locomotive driver must drive you home. - NO public transportation without another adult if you receive anesthesia. - We recommend that an adult stay with you for 24 hours following discharge. - We also recommend that you do not drive, make important decision, drink alcoholic beverages, or take any drugs that were not prescribed by your health care provider for at least 24 hours after your discharge time. Follow any additional instructions given to you from your surgeon. If you or anyone in your household have experienced Covid symptoms in the past week, please notify your surgeon or the nurse liaison at the phone number below for possible testing. Telephone instructions given to __PATIENT and asked if any additional questions and then verbalized understanding. Patient advised to call surgeon office or pre surgery nurse liaison [phone] if any additional questions.
[2023-02-03] VITALS (10 sets, daily range): BP systolic 114–144; BP diastolic 54–93; PULSE 67–81; RESP 13–16; TEMP 36.4–36.7; O2SAT 98–100
--- NOTE | ~2023-02-03 | XR_ITS ---
EXAMINATION: XR surgery orthopedic DATE: 02/03/2023 08:45 INDICATION: Right foot hammertoe correction TECHNIQUE: 3 fluoroscopic images of the right forefoot were obtained during procedure performed by Dr Dionicio Bauer. Radiologist was not present for the imaging or procedure. The amount of fluoroscopy time u sed during this procedure was 0.1 minutes. COMPARISON: Right foot radiographs dated 10/26/2022 FINDINGS: Bunionectomy with osteotomy at the medial head of the first metatarsal. First proximal phalangeal med ial sided proximal metadiaphyseal closing wedge osteotomy with staple fixation. Second proximal inter phalangeal joint arthrodesis with fixation device placement and osteotomy at the head of the second p roximal phalanx. Alignment appears near-anatomic. No fracture. Severe osteoarthritis at the first met atarsophalangeal joint. IMPRESSION: 1. Fluoroscopy utilized during orthopedic procedure at the right forefoot including bunionectomy, wyatt lignment osteotomy at the first proximal phalanx and second proximal interphalangeal joint arthrodesi s. See procedure note for further detail. Reviewed, dictated and finalized at location L. IMPRESSION: 1. Fluoroscopy utilized during orthopedic procedure at the right forefoot inclu ding bunionectomy, realignment osteotomy at the first proximal phalanx and seco nd proximal interphalangeal joint arthrodesis. See procedure note for further d etail.
[2023-02-03] MEDS: LACTATED RINGERS 1,000 ML 30 ML IV CONT ×2 (07:00→08:52)
[2023-02-03] MEDS: KETOROLAC 15 MG/ML VIAL (*BKC) IV PUSH (07:00)
[2023-02-03] MEDS: ACETAMINOPHEN 500 MG TABLET 1000 MG PO (07:00)
--- NOTE | 2023-02-03 07:11 | WPDHPUPDATE1 ---
History and Physical Update Update Date/Time: 02/03/23 07:11 History and Physical has been reviewed, including an updated exam of the patient. There are NO changes in the patient's condition. Risks, benefits, and alternatives have been discussed and questions answered. Patient agrees to proceed with procedure.
--- NOTE | 2023-02-03 07:11 | WPDANESEPPF ---
Anes - Initial Pre Proc Eval Procedure: Operation Date: 02/03/23 07:30 Proposed Procedures p Right Foot Hallux Valgus Correction with Phalangeal Osteotomy, - Marcello Bauer MD s Right Foot Second and Third Hammertoe Correction and Excision Mucous Cyst - Marcello Bauer MD Date/Time: 02/03/23 07:11 Surgeon: Marcello Buaer MD Pre Op Diagnosis: Rt Hallux Valgus 2nd,3rd Hammer Toes Rt Foot Patient Data Age: 82 Gender: F Height: 1.6 m Weight: 65.7 kg Last Vital Signs Temp 36.7 C 02/03/23 06:48 Pulse 71 02/03/23 06:48 Resp 14 02/03/23 06:48 BP 144/70 H 02/03/23 06:48 Pulse Ox 98 02/03/23 06:48 O2 Del Method Room Air 02/03/23 06:48 Allergies Allergy/AdvReac Type Severity Reaction Status Date / Time metoprolol Allergy Severe MOUTH-Itching, Verified 01/28/23 11:31 SWELLING vilanterol Allergy Severe throat Verified 01/28/23 11:31 [From Breo Ellipta] swelling clotrimazole Allergy Mild MOUTH Verified 01/28/23 11:31 Itching, SWELLING fluticasone furoate Allergy Unknown throat Verified 01/28/23 11:31 [From Breo Ellipta] swelling phentermine [From Suprenza] Allergy MOUTH Verified 01/28/23 11:31 ITCHING, SWELLING Narcotics AdvReac Unknown Vomiting Uncoded 01/28/23 11:31 Home Medications Medication Instructions Recorded Confirmed Type lorazepam 1 mg tablet 1 mg PO TID PRN anxiety #90 tabs 11/15/22 01/28/23 Rx calcium carbonate 600 mg-vitamin 1 tablet PO DAILY 11/26/22 01/28/23 History D3 10 mcg (400 unit) tablet (Calcium 600 + D(3)) cholecalciferol (vitamin D3) 125 125 mcg PO DAILY 11/26/22 01/28/23 History mcg (5,000 unit) capsule cyanocobalamin (vitamin B-12) 500 500 mcg PO 5XW 11/26/22 01/28/23 History mcg tablet tramadol 50 mg tablet 50 mg PO Q6H PRN pain 30 days #28 12/02/22 01/28/23 Rx tabs alendronate 35 mg tablet See Rx Instructions .Route 01/14/23 01/28/23 Rx .COMPLEX #12 tabs amlodipine 5 mg-atorvastatin 20 mg 1 tablet PO QAM 01/28/23 01/28/23 History tablet atenolol 50 mg tablet 100 mg PO QAM 01/28/23 02/03/23 History bupropion HCl 300 mg 24 hr tablet, 300 mg PO QAM 01/28/23 01/28/23 History extended release celecoxib 200 mg capsule 200 mg PO QAM 01/28/23 01/28/23 History atenolol 50 mg tablet See Rx Instructions .Route 02/01/23 02/03/23 Rx .COMPLEX #180 tabs Patient hx anesthesia problems: none Family hx anesthesia problems: none Results Review: All pre-operative results and documents have been reviewed as part of the pre-operative evaluation. [facility] Past Medical History Medical History Abdominal adhesions Bronchitis Calcification of spleen ct 06.14.22: 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 Diverticulitis Diverticulosis Dysphagia egd 09.14.22: schatzki's ring/ dilated Encounter for postoperative care Essential hypertension External hemorrhoids Hallux valgus Hammertoes of both feet Hereditary and idiopathic neuropathy, unspecified Irritant dermatitis Light-headed feeling Lumbago with sciatica, unspecified side Mixed hyperlipidemia Mucous cyst of toe Other hammer toe(s) (acquired), unspecified foot Overweight (BMI 25.0-29.9) Parotid gland fullness PONV (postoperative nausea and vomiting) Schatzki's ring Thrombosed external hemorrhoid TMJ dysfunction Surgical History Surgical History H/O total hysterectomy History of appendectomy History of bilateral knee replacement Family History Family History Father Depression Family history of suicide Mother Hypertension Family history of cardiovascular disease Other Family history of Alzheimer's disease Social History Social History Smoking status: Never smoker Second hand
[2023-02-03] MEDS: ceFAZolin 2 GM/D5W 50 ML 2 GM/50 ML BAG IVPB (07:32)
[2023-02-03] MEDS: BUPivacaine HCL 0.5% PF 30 ML VIAL INFILTRATE (08:10)
--- NOTE | 2023-02-03 09:12 | W.PM.PROC2 ---
Procedure Note - Detailed Date of Procedure 02/03/23 Pre-op Diagnosis Rt Hallux Valgus 2nd,3rd Hammer Toes Rt Foot, Right hallux mucous cyst Post-op Diagnosis Same Procedure Performed right hallux valgus correction with proximal phalangeal osteotomy, 2nd hammertoe correction with proximal interphalangeal arthrodesis, 3rd toe correction with flexor tendon tenotomy, excision right hallux mucous cyst. Surgeon Marcello Bauer MD Mine Engineering Supervisor 1St assistant wrestling coach Anesthesia General Indications 82-year-old woman with right hallux valgus and toe deformities as well as mucous cyst of the hallux. Failed conservative treatment toe strapping, accommodative shoes and inserts. Presents now for operative treatment. Description of Procedure After informed consent was given, the operative extremity was marked in the preoperative holding area. The patient received intravenous antibiotics.? The patient was brought to the operating room where they underwent a general anesthetic by the anesthesia team.? The patient was positioned supine on the operating room table.? A time-out was performed confirming the patient, site of the surgery, and the plan for surgery. The right lower extremity was then prepped and draped in the usual sterile surgical fashion using ChloraPrep skin solution. Foot and ankle were exsanguinated With an? Esmarch bandage and calf tourniquet inflated to 225 mmHg.? A longitudinal incision was then made along the medial border of the 1st ray centered over the medial eminence with a #15 blade knife. Hemostasis was controlled with electric cautery.? The dorsal and plantar sensory nerves were identified and retracted bluntly.? A medial capsulotomy was then performed. This was reflected off the medial eminence.? The joint was inspected for evaluation of degenerative changes. A lateral release was then performed through the joint with a #15 blade knife.? The medial eminence was then resected with a sagittal saw in line with the medial border of the foot.? The wound was then thoroughly irrigated with antibiotic solution. The capsule was repaired through a drill hole in the distal 1st metatarsal with 0 Vicryl interrupted suture.? The dorsal limb of the capsule was repaired with 00 Vicryl interrupted suture.? Subcutaneous tissue was repaired with 000 Monocryl interrupted suture and the skin approximated with 0000 nylon running suture. Local anesthetic with 0.5% Marcaine plain was injected in the soft tissue. ? Clinically and fluoroscopically there was still hallux valgus interphalangeus present.? Proximal phalanx osteotomy was indicated.? Medial incision made along the proximal phalanx with 15 blade knife.? Hemostasis controlled electrocautery.? Dissection down to the medial aspect of the proximal phalanx.? Retractors placed.? Sagittal saw used to make a medial closing wedge osteotomy transversely across the proximal phalanx.? Image intensification confirmed placement of the osteotomy.? Fixation was achieved with the Arthrex 10 millimeter x 9 millimeter staple.? Good stability and fixation were noted.? Image intensification confirmed final alignment of the osteotomy and placement of the hardware.? Overall alignment of the 1st ray was verified.? Wound was thoroughly irrigated with antibiotic solution.? Soft tissue closed with 000 Monocryl interrupted suture.? Skin approximately 4 O nylon running suture. ?2nd toe then addressed.? Dorsal longitudinal incision made over the proximal interphalangeal joint of the 15 blade knife.? Skin retractors placed in a dorsal capsulotomy performed.? Collateral ligaments released.? Distal end of the proximal phalanx resected with a bone cutter.? Articular surface of the middle phalanx resected with rongeur.? Joint irrigated and fixed with the Arthrex 14 mm hammertoe implant fixation.? Image intensification confirmed position. wound irrigated and capsule repaired with 3-0 Monocryl interrupted suture.? Skin repaired with 3-0 nylon interrupted suture. Third toe then
--- NOTE | 2023-02-03 11:31 | SUR.PHASEII ---
1130: patient ready for discharge and awaiting ride.
--- NOTE | 2023-02-04 08:37 | PCCCNOTE ---
Referral for home health received and Avelina, Director at [facility] accepted pt and is scheduled to see pt on 02/04/23. Notified rep Cathy in Dr. Bauer's office of arrangements.
== END 2023-02-03 11:45 | disposition home health service (06) ==
PROVIDERS: PCP Family Medicine; Visit Provider Orthopaedic Surgery
PROC: (CPT 28299; principal; 2023-02-03 07:30)
PROC: (CPT 28285; 2023-02-03 07:30)
DX: M20.11 Hallux valgus (acquired), right foot (principal); M20.41 Other hammer toe(s) (acquired), right foot; M25.871 Other specified joint disorders, right ankle and foot; I10 Essential (primary) hypertension; E78.2 Mixed hyperlipidemia
CPT/HCPCS: 28285; 28232; 28298; 28092; 99199; A9270; C1713; J0690; J1885; J2250; J3010; J7120

== ENCOUNTER 2023-09-02 14:11 | Outpatient (CLI) | payer MEDICARE, SELFPAY ==
--- NOTE | ~2023-09-02 | MM_ITS ---
EXAMINATION: MM scrn mayra implant BI w abilio HISTORY: Screening mammogram TECHNIQUE: Craniocaudal and mediolateral oblique 3-D tomosynthesis images with implant displacement a nd synthetic 2-D images were generated. Craniocaudal and mediolateral oblique views of the breasts wi thout implant displacement were obtained using full field digital mammography. CAD analysis was submi tted and interpreted. COMPARISON: 08/30/2022, 08/20/2021, 08/05/2020 bilateral implant screening mammogram examinations BREAST PARENCHYMAL COMPOSITION: The breasts are heterogeneously dense, which may obscure small masses . FINDINGS: Status post bilateral augmentation mammoplasty. There are prominent calcifications around t he implants. There is stable fibroglandular asymmetry. There is no evidence of suspicious mass, calci fication, or architectural distortion to suggest malignancy in either breast. There has been no suspi cious interval change. IMPRESSION: 1. Benign findings No mammographic evidence of malignancy. 2. Recommend routine screening mammography in one year. BI-RADS Category 2: Benign finding(s). Reviewed, dictated and finalized at location A. RUMENT DESIGNER
== END 2023-09-02 14:12 | disposition home or self-care (01) ==
PROVIDERS: PCP Family Medicine; Visit Provider Family Medicine
DX: Z12.31 Encounter for screening mammogram for malignant neoplasm of breast (principal)
CPT/HCPCS: 77063; 77067

== ENCOUNTER 2023-09-13 14:12 | Outpatient (CLI) | payer MEDICARE, SELFPAY ==
[2023-09-13 19:39] LABS: Basophils Percent Auto 0.5 % (0.2-1.2); Eosinophils Absolute Auto 0.1 K/mm3 (0-0.3); Eosinophils Percent Auto 1.3 % (0-4.4); Hematocrit 42.3 % (37.0-47.0); Hemoglobin 14.2 g/dL (12.0-15.0); Immature Granulocyte Absolute 0.01 K/mm3 (0.00-0.031); Immature Granulocyte Percent A 0.1 % (0-0.5); Lymphocytes Absolute Auto 2.94 K/mm3 (0.9-3.2); Lymphocytes Percent Auto 33.5 % (18.3-44.2); Mean Corpuscular HGB Conc 33.6 g/dl (32-36); Mean Corpuscular Hemoglobin 31.5 pg (26-34); Mean Corpuscular Volume 93.8 fl (80-100); Mean Platelet Volume 10.7 fl (7.4-10.4); Monocytes Absolute Auto 0.8 K/mm3 (0.1-0.6); Neutrophils Absolute Auto 4.9 K/mm3 (1.3-6.7); Neutrophils Percent Auto 55.6 % (45.5-73.1); Platelet Count Result 263 k/mm3 (150-375); Red Blood Count 4.51 M/mm3 (4.2-5.4); Red Cell Distribution Width 11.8 % (11.5-14.5); White Blood Count 8.8 K/mm3 (4.5-10.0)
[2023-09-13 19:48] LABS: Anion Gap 8 mmol/L (8-16); Blood Urea Nitrogen 19 mg/dL (7-17); Calcium 9.3 mg/dL (8.4-10.2); Carbon Dioxide 28 mmol/L (22-30); Chloride 108 mmol/L (98-107); Estimated Glomerular Filt Rate > 60; Glucose 93 mg/dL (65-110); Potassium 3.6 mmol/L (3.4-5.0); Sodium 144 mmol/L (137-145)
[2023-09-13 19:53] LABS: Vitamin D 25 Hydroxy 50.8 ng/mL
[2023-09-13 20:37] LABS: Hemoglobin A1C 5.3 % (<5.7)
== END 2023-09-13 14:13 | disposition home or self-care (01) ==
LOC: ANHGOSHLAB 14:14
PROVIDERS: PCP Family Medicine; Visit Provider Nurse Practitioner Family
DX: E55.9 Vitamin D deficiency, unspecified (principal); I10 Essential (primary) hypertension; E53.8 Deficiency of other specified B group vitamins; R73.01 Impaired fasting glucose
CPT/HCPCS: 36415; 80048; 82306; 83036; 84443; 85025

== ENCOUNTER 2024-02-02 15:48 | Outpatient (CLI) | payer MEDICARE, SELFPAY ==
[2024-02-02 19:03] LABS: Basophils Absolute Auto 0.1 K/mm3 (0.0-0.1); Basophils Percent Auto 0.5 % (0.2-1.2); Eosinophils Absolute Auto 0.2 K/mm3 (0-0.3); Eosinophils Percent Auto 1.7 % (0-4.4); Hematocrit 42.6 % (37.0-47.0); Hemoglobin 14.1 g/dL (12.0-15.0); Immature Granulocyte Absolute 0.03 K/mm3 (0.00-0.031); Immature Granulocyte Percent A 0.3 % (0-0.5); Lymphocytes Absolute Auto 2.84 K/mm3 (0.9-3.2); Lymphocytes Percent Auto 28.4 % (18.3-44.2); Mean Corpuscular HGB Conc 33.1 g/dl (32-36); Mean Corpuscular Hemoglobin 31.1 pg (26-34); Mean Corpuscular Volume 93.8 fl (80-100); Mean Platelet Volume 10.3 fl (7.4-10.4); Monocytes Absolute Auto 0.8 K/mm3 (0.1-0.6); Monocytes Percent Auto 8.2 % (2.6-8.5); Neutrophils Absolute Auto 6.1 K/mm3 (1.3-6.7); Neutrophils Percent Auto 60.9 % (45.5-73.1); Platelet Count Result 298 k/mm3 (150-375); Red Blood Count 4.54 M/mm3 (4.2-5.4)
[2024-02-02 19:08] LABS: Alanine Aminotransferase 26 U/L (6-35); Albumin Level 4.9 g/dL (3.5-5.1); Alkaline Phosphatase 93 U/L (38-126); Anion Gap 10 mmol/L (4-12); Aspartate Amino Transferase 36 U/L (14-36); Bilirubin,Total 0.7 mg/dL (0.2-1.3); Blood Urea Nitrogen 33 mg/dL (7-17); Calcium 9.8 mg/dL (8.4-10.2); Carbon Dioxide 23 mmol/L (22-30); Chloride 109 mmol/L (98-107); Cholesterol 172 mg/dL (0-200); Estimated Glomerular Filt Rate 48; Glucose 107 mg/dL (65-110); HDL Direct 66 mg/dL; Potassium 4.3 mmol/L (3.4-5.0); Sodium 142 mmol/L (137-145); Triglycerides 199 mg/dL (<150); Uric Acid 5.4 mg/dL (2.5-7.5)
[2024-02-02 19:19] LABS: LDL Cholesterol Direct 65 mg/dL
[2024-02-02 20:29] LABS: Vitamin D 25 Hydroxy 56.7 ng/mL
== END 2024-02-02 15:49 | disposition home or self-care (01) ==
LOC: ANHGOSHLAB 15:49
PROVIDERS: PCP Family Medicine; Visit Provider Family Medicine
DX: E55.9 Vitamin D deficiency, unspecified (principal); M79.673 Pain in unspecified foot; E53.8 Deficiency of other specified B group vitamins; Z78.0 Asymptomatic menopausal state; I10 Essential (primary) hypertension
CPT/HCPCS: 36415; 80053; 80061; 82306; 82607; 84443; 84550; 85025

== ENCOUNTER 2024-03-09 09:16 | Outpatient (CLI) | payer MEDICARE, SELFPAY ==
[2024-03-09 19:15] LABS: Anion Gap 8 mmol/L (4-12); Blood Urea Nitrogen 23 mg/dL (7-17); Calcium 9.3 mg/dL (8.4-10.2); Carbon Dioxide 24 mmol/L (22-30); Chloride 110 mmol/L (98-107); Estimated Glomerular Filt Rate > 60; Glucose 89 mg/dL (65-110); Potassium 3.8 mmol/L (3.4-5.0); Sodium 142 mmol/L (137-145)
== END 2024-03-09 09:17 | disposition home or self-care (01) ==
LOC: ANHGOSHLAB 09:18
PROVIDERS: PCP Family Medicine; Visit Provider Family Medicine
DX: N28.9 Disorder of kidney and ureter, unspecified (principal)
CPT/HCPCS: 36415; 80048

== ENCOUNTER 2024-08-23 14:33 | Outpatient (CLI) | payer MEDICARE, SELFPAY ==
[2024-08-23 19:02] LABS: Rheumatoid Factor < 12.0 IU/ML (<12)
[2024-08-23 19:21] LABS: Erythrocyte Sedimentation Rate 13 mm/hr (0-20)
[2024-08-25 08:28] LABS: ANA Cascade Screen POSITIVE (NEGATIVE); Chromatin (Nucleosomal) Ab <1.0 NEG AI (<1.0 NEG); Chromatin Antibody Charge YES; DNA (ds) Antibody Charge YES; JO1 Antibody Charge YES; Jo-1 Antibody <1.0 NEG AI (<1.0 NEG); RNP Antibody <1.0 NEG AI (<1.0 NEG); RNP Antibody Charge YES; SCL70 Antibody Charge YES; SSA Antibody Charge YES; SSB Antibody Charge YES; Sjogren's Antibody (SS-B) <1.0 NEG AI (<1.0 NEG); Sm Antibody <1.0 NEG AI (<1.0 NEG); Sm Antibody Charge YES; Sm/RNP Antibody <1.0 NEG AI (<1.0 NEG); Sm/RNP Antibody Charge YES
== END 2024-08-23 14:34 | disposition home or self-care (01) ==
LOC: ANHGOSHLAB 14:34
PROVIDERS: PCP Family Medicine; Visit Provider Family Medicine
DX: M25.60 Stiffness of unspecified joint, not elsewhere classified (principal)
CPT/HCPCS: 36415; 85652; 86038; 86225; 86235; 86364; 86430

== ENCOUNTER 2024-08-23 14:59 | Outpatient (CLI) | payer MEDICARE, SELFPAY ==
--- NOTE | ~2024-08-23 | XR_ITS ---
EXAMINATION: XR hand BI arthritis min 3V DATE: 08/23/2024 15:19 INDICATION: Bilateral hand stiffness and pain. TECHNIQUE: 4 views of the right hand and 4 views of the left hand on a total of 7 radiographs were ob tained. COMPARISON: None. FINDINGS: RIGHT HAND: Alignment is normal. No fracture. There is moderate osteoarthritis of triscaphe joint and severe osteoarthritis of first carpometacarpal joint. There is moderate osteoarthritis of first and second metacarpophalangeal joints and mild osteoarthritis of third metacarpophalangeal joint and some of the interphalangeal joints. There is severe osteoarthritis of first interphalangeal joint and mod erate osteoarthritis of second and third distal interphalangeal joints. LEFT HAND: Alignment is normal. No fracture. There is moderate osteoarthritis of triscaphe joint and severe osteoarthritis of first carpometacarpal joint. There is mild osteoarthritis of some of the met acarpophalangeal joints and interphalangeal joints. There is moderate osteoarthritis of first interph alangeal joint and third distal interphalangeal joint. IMPRESSION: 1. Polyarticular osteoarthritis. Reviewed, dictated and finalized at location A. ENTRY REPRESENTATIVE
== END 2024-08-23 15:00 | disposition home or self-care (01) ==
LOC: GOSHIMG 15:00
PROVIDERS: PCP Family Medicine; Visit Provider Family Medicine
DX: M19.042 Primary osteoarthritis, left hand (principal); M19.041 Primary osteoarthritis, right hand
CPT/HCPCS: 73130

== ENCOUNTER 2024-10-18 11:31 | Outpatient (CLI) | payer MEDICARE, SELFPAY ==
--- NOTE | ~2024-10-18 | MM_ITS ---
EXAMINATION: MM scrn mayra implant BI w abilio HISTORY: Screening mammogram TECHNIQUE: Craniocaudal and mediolateral oblique 3-D tomosynthesis images with implant displacement a nd synthetic 2-D images were generated. Craniocaudal and mediolateral oblique views of the breasts wi thout implant displacement were obtained using full field digital mammography. CAD analysis was submi tted and interpreted. COMPARISON: 09/02/2023, 08/30/2022 BREAST PARENCHYMAL COMPOSITION: The breasts are heterogeneously dense, which may obscure small masses . FINDINGS: There is no evidence of suspicious mass, calcification, or architectural distortion to sugg est malignancy in either breast. There has been no suspicious interval change. IMPRESSION: No mammographic evidence of malignancy. Recommend routine screening mammography in one year. BI-RADS Category 1: Negative Reviewed, dictated and finalized at [facility]. ING WORKER
--- NOTE | ~2024-10-18 | DEXA_ITS ---
Bone Density Report Name: DENNISE ROQUE Age: 84 Sex: Female Ethnicity: White Date of : 1940 Indication: postmenopausal; screening for osteoporosis; height loss; hysterectomy; Referring Provider: ANDRE SAMANO Study: Bone densitometry was performed. Exam Date: October 18, 2024 Accession number: [id number] Bone Density: Region BMD T-score Z-score Classification AP Spine(L1-L4) 1.250 1.8 4.6 Normal Femoral Neck (Left) 0.558 -2.6 -0.2 Osteoporosis Total Hip (Left) 0.788 -1.3 1.0 Osteopenia Femoral Neck (Right) 0.627 -2.0 0.4 Osteopenia Total Hip (Right) 0.841 -0.8 1.4 Normal Femoral Neck Mean 0.593 -2.3 0.1 Osteopenia Total Hip Mean 0.815 -1.0 1.2 Normal World Health Organization criteria for BMD impression classify patients as: Normal (T-score at or above -1.0), Osteopenia (T-score between -1.0 and -2.5), or Osteoporosis (T-score at or below -2.5). 10-year Fracture Risk: FRAX not reported because: Some T-score for Spine Total or Hip Total or Femoral Neck at or below -2.5 Clinical Information Provided by Patient: Has used the following medications: Miacalcin (i.e. calcitonin), Vitamin D, VITAMIN B Has the following medical conditions: Hysterectomy Patient maximum height was 64 Menopause Age: 33 No regular weight bearing exercise Does not regularly consume dairy products Onset of menses at age 15 Number of children 2 Impression: The patient has osteoporosis, based on the Left Femoral Neck T-score. Discussion: INCREASED RISK OF FRACTURE. BONE DENSITY IS UNDESIRABLY LOW AT ONE OR MORE SKELETAL SITES, CONSISTENT WITH POSTMENOPAUSAL OSTEOPOROSIS. This patient's lowest T-score meets the World Health Organization's (WHO) criteria for osteoporosis at one or more sites (T-score -2.5 or below). In untreated patients, the risk of osteoporotic fracture increases approximately two-fold for each 1.0 SD decrease in T-score. Low bone density is not the only risk factor for fracture; also consider factors such as patient's age, frailty or poor health, risk of falling, risk of injury, previous osteoporotic fracture, family history of osteoporosis, cigarette smoking, low body weight, etc. Not everyone with low bone mineral density has osteoporosis; osteomalacia and other metabolic bone disorders should also be considered. Patients who have osteoporosis should be evaluated for specific diseases and conditions (secondary causes) that may cause or contribute to bone loss. The [place] [employer] Clinical Endocrinologists (AACE) and National Osteoporosis Foundation (NOF) recommend pharmacologic intervention for all postmenopausal women whose T-score is in this range. The patient should follow a healthful lifestyle (good nutrition with adequate calcium and vitamin D, and appropriate weight-bearing exercise). Follow-Up: Consider a repeat BMD and Vertebral Fracture Assessment (VFA) exam in 2 years or sooner if medically necessary, to reassess this patient's status. Reported by: NORMA on 10/18/2024 12:21:00 PM. Reviewed, dictated and finalized at location A.
== END 2024-10-18 11:32 | disposition home or self-care (01) ==
LOC: CHSIMG 11:35
PROVIDERS: PCP Family Medicine; Visit Provider Family Medicine
DX: Z12.31 Encounter for screening mammogram for malignant neoplasm of breast (principal); Z78.0 Asymptomatic menopausal state; M85.89 Other specified disorders of bone density and structure, multiple sites; M81.0 Age-related osteoporosis without current pathological fracture
CPT/HCPCS: 77063; 77067; 77080

== ENCOUNTER 2025-04-08 12:35 | Outpatient (CLI) | payer MEDICARE, SELFPAY ==
--- OUTSIDE RECORDS SUMMARY | 2025-04-08 12:38 | XMS_ITS | Referral Summary ---
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 Name Role Phone Gabriela Loco MD Primary Care Provider + Encounters Date Type Department Care Team Description 03/25/2025 1:40 PM CDT Lab [address] [id number] from Last 3 Months Allergies Active Allergy Reactions Criticality Noted Date Comments Amoxicillin-Pot Clavulanate Other Unknown 07/20/2023 Clotrimazole Soln Medications diphenhydramine HCl (BENADRYL ALLERGY ORAL) Active cholecalciferol (VITAMIN D-3) 1,000 unit daily Active alendronate (FOSAMAX) 35 mg tablet Active amlodipine-ator vastatin (CADUET) 5-20 mg per tablet Take 1 tablet by mouth daily 05/03/2023 Active aspirin 81 mg enteric coated tablet Take 1 tablet (81 mg total) by mouth daily Active atenoloL (TENORMIN) 50 mg tablet Take 1 tablet (50 mg total) by mouth 2 (two) times a day Active buPROPion XL (WELLBUTRIN XL) 300 mg 24 hr tablet Take 1 tablet (300 mg total) by mouth every morning Active celecoxib (CeleBREX) 200 mg capsule Take by mouth daily 07/11/2023 Active cyanocobalamin, vitamin B-12, (Vitamin B-12) 1,000 mcg tablet extended release daily Active darifenacin ER (ENABLEX) 7.5 mg 24 hr tablet Take 1 tablet (7.5 mg total) by mouth daily 07/26/2013 Active LORazepam (ATIVAN) 1 mg tablet 1 MG ORALLY THREE TIMES A DAY NEEDED FOR ANXIETY Active meloxicam (MOBIC) 15 mg tablet Take 1 tablet (15 mg total) by mouth daily as needed Active traMADoL (ULTRAM) 50 mg tablet TAKE ONE TABLET BY MOUTH EVERY 6 HOURS NEEDED FOR PAIN FOR 30 DAYS 06/21/2023 Active Active Problems Problem Noted Date Diagnosed Date Exposure to sunlight 09/28/2016 Skin neoplasm 09/28/2016 Pain of foot 10/09/2015 Myopia 09/15/2015 Dry eyes 09/15/2015 Glaucoma suspect 09/15/2015 Pseudophakia 09/15/2015 Peripheral drusen 09/15/2015 Vitreous syneresis 09/15/2015 Posterior vitreous detachment 09/15/2015 Syncope 04/24/2015 Hyperlipemia 01/01/2013 Anxiety state 01/01/2013 Overview (07/20/2023): Essential hypertension, benign 01/01/2013 Depression 01/01/2013 Surgical follow-up care 09/04/2012 Osteoarthritis of knee 05/05/2010 Social History Tobacco Use Types Packs/Day Years Used Date Smoking Tobacco: Never Smokeless Tobacco: Never Tobacco Cessation:Counseling Given: Not Answered AUDIT-C Answer Date Recorded Q1: How often do you have a drink containing alcohol? Never 07/20/2023 Q2: How many drinks containi ng alcohol do you have on a typical day when you are drinking? Patient does not drink Q3: How often do you have si x or more drinks on one occasion? Never 07/20/2023 Comments Unknown Sex and Gender Information Value Date Recorded Sex Assigned at Not on file Legal Sex Female 7:45 PM [employer] Gender Identity Not on file Sexual Orientation Not on file Occupation Industry Job Start Date Job End Date retired Not on file Not on file Not on file Last Filed Vital Signs Vital Sign Reading Time Taken Comments Blood Pressure 142/86 06/12/2015 12:52 PM CDT Pulse 76 06/12/2015 12:52 PM CDT Temperature - - Respiratory Rate - - Oxygen Saturation 95% 06/12/2015 12:52 PM CDT Inhaled Oxygen Concentration - - Weight 65.8 kg (145 lb) 07/20/2023 9:49 AM CDT Height 157.5 cm (5' 2) 07/20/2023 9:49 AM CDT Body Mass Index 26.52 07/20/2023 9:49 AM CDT Plan of Treatment Not on file Procedures Procedure Name Priority Date/Time Associated Diagnosis Comments EGFR Routine 03/25/2025 1:46 PM CDT COMPREHENSIVE METABOLIC PANEL Routine 03/25/2025 1:46 PM CDT from Last 3 Months Results * (ABNORMAL) eGFR (03/25/2025 1:46 PM CDT) eGFR 50(L) >=60 mL/min/1. 73 m2 Comment: Interpretive Data Reference Interval Normal >/= 90 mL/min/1.73m2 Mildly decreased* 60 - 89 mL/min/1.73m2 Mildly to moderately decreased 45 - 59 mL/min/1.73m2 Moderately to severely decreased 30 - 44 mL/min/1.73m2 Severely decreased 15 - 29 mL/min/1.73m2 Kidney Failure < 15 mL/min/1.73m2 *Relative to young adult level Estimated glomerular filtration rate is determined by the 2020 CKD-EPI equation recommended by the National Kidney Foundation (A Unifying Approach to GFR Estimation: Recommendations of the NKF-ASK Task Force on Reassessing the Inclusion of Race in Diagnosing Kidney Disease, JASN 2020). The CKD-EPI equation should not be used for patients with unstable renal function and has not been validated in children and those over 70. Current interpretive data was last reviewed 2021. Blood 03/25/2025 1:46 PM CDT 03/25/2025 3:16 PM CDT us Radha Fraire MD LAB BLOOD ORDERABLES Final Resul t [facility] [address] [place] [address] * Comprehensive metabolic panel (03/25/2025 1:46 PM CDT) Sodium 141 135 - 145 mmol/L Potassium, pl 3.9 3.3 - 4.9 mmol/L [facility] Chloride 103 97 - 110 mmol/L [facility] CO2 23 22 - 32 mmol/L [facility] Anion gap 15 2 - 15 mmol/L [facility] BUN 21 6 - 25 mg/dL [facility] Creatinine 1.09 0.60 - 1.10 mg/dL [facility] Glucose 100 70 - 199 mg/dL [facility] Comment: Interpretive Data Fasting glucose >/= 126 mg/dl is diagnostic for diabetes. Fasting is defined as no caloric intake for at least 8 hours. Fasting glucose between 100 mg/dl to 125 mg/dl is diagnostic of prediabetes. In a patient with classic symptoms of hyperglycemia or hyperglycemic crisis, a random glucose >/= 200 mg/dl is diagnostic for diabetes. In the absence of unequivocal hyperglycemia, results should be confirmed by repeat testing. The classification and Diagnosis of Diabetes Diabetes Care 2021; 46: S19-S40. Current interpretive data was last revised 2022. Calcium 9.6 8.5 - 10.3 mg/dL [facility] Bilirubin, total 0.6 0.1 - 1.2 mg/dL [facility] Protein, pl 7.8 6.5 - 8.5 g/dL [facility] Albumin 4.6 3.5 - 5.0 g/dL [facility] Alk phos 97 40 - 130 Units/L [facility] ALT 22 7 - 45 Units/L [facility] AST 25 10 - 45 Units/L [facility] Blood 03/25/2025 1:46 PM CDT 03/25/2025 3:16 PM CDT us Radha Fraire MD LAB BLOOD ORDERABLES Final Resul t [facility] [address] Department [place] [address] from Last 3 Months Insurance [employer] MEDICARE A[employer] MEDICARE GOLD Care Teams Berry Picker Machine Operator Relationship Specialty Start Date End Date Gabriela Loco MD PCP - General 10/02/17
--- OUTSIDE RECORDS SUMMARY | 2025-04-08 12:38 | XMS_ITS | Patient Health Record ---
Author Organization [facility] jose c Address [address] [place] [address] Care Team Providers Care Circulator Name Role Phone Gabriela Loco MD Primary Care Provider Unav Radha Owens Unavailable [phone] Allergies Allergen (clinical drug ingredient) Drug/Non Drug Allergy documented on EMR Reaction Allergy Type Onset Date Status fluticasone / vilanterol Breo Ellipta Unknown Drug Allergy Active Anesthesia S/I-40 Unknown Drug Allergy Active clotrimazole Clotrimazole Unknown Drug Allergy A ctive hydrocodone Hydrocodone Unknown Drug Allergy Act fadi metoprolol Metoprolol Unknown Drug Allergy Activ e phentermine Phentermine Unknown Drug Allergy Act fadi Results Component Value Reference Range Notes Anti-CCP (Cyclic Citrullinat ed Peptide Ab) Reviewed date:09/11/2024 12:51:53 PM Interpretation: Performing Lab:[facility] , [address] [place] [address]. [facility] [address] Notes/Report: CCP Ab <0.5 <=2.9 units/mL Interpretive data Negative: <3 units/mL Positive: > or equal to 3 units/mL Current interpretive data was last revised on 2017. Beta 2 Glycoprotein Ab IgG, IgM Reviewed date:09/11/2024 12:51:54 PM Interpretation: Performing Lab:[facility] , [address] [place] [address]. [facility] [address] Notes/Report: B2GPI IgG <1.4 <=19.9 units/mL Interpretive Data Negative: <20 U/mL Positive: > or = 20 U/mL Beta-2 glycoprotein 1 (Beta-2 GP1) antibodies are a more specific marker of thrombotic risk. It is expected that some samples will be ACL positive and Beta-2 HM1hocvkgup. In order to improve specificity, the International Congress on Antiphospholipid Antibodies recommends Beta-2 GP1 antibodies of IgG or IgM isotype (> the 99th percentile), obtained twice, at least 12 weeks apart, to support a diagnosis of antiphospholipid syndrome. The cutoff for this assay was developed from data based on the 99th percentile. These results were obtained with the [employer] 2200 System. Beta 2GP1 IgG values obtained with different manufacturers' assay methods may not be used interchangeably. Current interpretive data was last revised on 2017. B2GPI IgM 0.8 <=19.9 units/mL Interpretive Data Negative: <20 U/mL Positive: > or = 20 U/mL Beta- 2 glycoprotein 1 (Beta-2 GP1) antibodies are a more specific marker of thrombotic risk. It is expected that some samples will be ACL positive and Beta-2 GP1 negative. In order to improve specificity, the International Congress on Antiphospholipid Antibodies recommends Beta-2 GP1 antibodies of IgG or IgM isotype (> the 99th percentile), obtained twice, at least 12 weeks apart, to support a diagnosis of antiphospholipid syndrome. The cutoff for this assay was developed from data based on the 99th percentile. The Beta-2 GP1 IgM test can produce false positive results due to cross-reactivity with Rheumatoid factor. These results were obtained with the [employer] TV 2200 System. Beta-2 GP1 IgM values obtained with different manufacturers' assay methods may not be used interchangeably. Current interpretive data was last revised on 2017. C Reactive Protein Reviewed date:09/10/2024 05:08:10 PM Interpretation: Performing Lab:[facility] , [address] [place] [address]. [facility] [address] Notes/Report: C-Reactive Protein <3.0 <=10.0 mg/L CBC w auto diff Reviewed date:09/10/2024 05:08:11 PM Interpretation: Performing Lab:[facility] , [address] [place] [address]. [facility] [address] Notes/Report: WBC 8.0 3.8-9.9 K/cumm Hgb 14.1 11.9-15.5 g/dL Hct 41.9 35.6-45.5 % Platelet Ct 251 150-400 K/cumm MPV 10.8 9.1-12.3 fL RBC 4.47 3.90-5.20 M/cumm MCV 93.7 81.3-96.4 fL MCH 31.5 27.1-33.3 pg MCHC 33.7 32.3-35.7 g/dL RDW CV 11.9 11.1-14.9 % RDW SD 41.0 35.7-48.1 fL NRBC Abs Auto 0.00 0.00-0.01 K/cumm Complement C3 Reviewed date:09/10/2024 05:08:11 PM Interpretation: Performing Lab:[facility] , [address] [facility]. [place] [address] Notes/Report: Complement, C3 154 90-180 mg/dL Complement C4 Reviewed date:09/10/2024 05:08:11 PM Interpretation: Performing Lab:[facility] , [address] [facility] [place] [address] Notes/Report: Complement, C4 32 10-40 mg/dL Comprehensive metabolic pane l (CMP) Reviewed date:09/10/2024 05:08:11 PM Interpretation: Performing Lab:[facility] , [address] [facility] [facility] [place] [address] Notes/Report: Sodium 143 135-145 mmol/L Plasma Potassium 3.9 3.3-4.9 mmol/L Chloride 105 97-110 mmol/L Total CO2 23 22-32 mmol/L Anion Gap 15 2-15 mmol/L BUN 18 6-25 mg/dL Creatinine 0.75 0.60-1.10 mg/dL Glucose 81 70-199 mg/dL Interpretive Data Fasting glucose >/= 126 mg/dl [...] Current interpretive data was last revised 2022. Total Calcium 9.4 8.5-10.3 mg/dL Total Bilirubin 0.4 0.1-1.2 mg/dL Plasma Total Protein 7.1 6.5-8.5 g/dL Albumin 4.4 3.5-5.0 g/dL Alkaline Phosphatase 99 40-130 Units/L ALT 24 7-45 Units/L AST 24 10-45 Units/L Creatine Kinase Reviewed date:09/10/2024 05:08:11 PM Interpretation: Performing Lab:[facility] , [address] [facility]. [place] [address] Notes/Report: Total CK 57 30-200 Units/L G6PD Ql Reviewed date:09/11/2024 08:03:46 AM Interpretation: Performing Lab:[facility] , [facility] [facility] [facility] [address] Notes/Report: G6PD, Qual Normal Normal Interp data: G6PD activity should be interpreted in the context of a patient's hematocrit. Hematocrit < 20% may lead to a falsely deficient result, while hematocrit > 50% may lead to a falsely normal result. Current interpretive data was last revised on 2020. Testing performed by: [facility], [address] [place]., [address] Hep B surf AG Reviewed date:09/10/2024 05:08:11 PM Interpretation: Performing Lab:[facility] , [address] [facility]. [place] [address] Notes/Report: Hepatitis B Surface Antigen Nonreactive Nonreactive Hep C AB Reviewed date:09/10/2024 05:08:11 PM Interpretation: Performing Lab:[facility] , [address] [place] [address] Notes/Report: Hepatitis C Antibody Nonreactive Nonreactive Interpretive Data Nonreactive: Antibodies to HCV not detected. Does NOT exclude the possibility of recent exposure to HCV. Equivocal: Equivocal for HCV antibodies. Supplemental molecular testing will be automatically performed to determine infection status in accordance with current CDC screening recommendations. Reactive: Positive for HCV antibodies. This may represent current or past HCV infection. Supplemental molecular testing will be automatically performed to determine current infection status in accordance with current CDC screening recommendations. Interpretive data was last revised on 2019. Histone ab Reviewed date:09/19/2024 04:56:52 PM Interpretation: Performing Lab:[facility] , [address] [facility]. [facility] [address] Notes/Report: Histone Ab <1.0 Value Explanation of Results ------ <1.0 Negative 1.0-1.5 Weak Positive 1.6-2.5 Moderate Positive >2.5 Strong Positive Test Performed at: [facility] [address] [address] ANKUSH NORRIS Lupus Anticoagulant w/Reflex Reviewed date:09/12/2024 02:18:11 PM Interpretation: Performing Lab:[facility] , [address] [place] [address]. [facility] [address] Notes/Report: PT 10.8 9.7-13.0 sec Testing performed by: [facility], [address] [facility] [place] [facility], [address] INR 1.00 0.90-1.20 Interpretive data Oral anticoagulant therapeutic ranges: Venous thromboembolism prophylaxis or treatment: 2.0-3.0 CARDIOLOGY Standard range: 2.0-3.0 High-intensity range: 2.5-3.5 Refer to indication-specific guidelines for appropriate target ranges for prosthetic heart valve replacement. Current interpretive data was last revised on 2019. Testing performed by: [facility], [address] [place]., [address] aPTT 30 28-38 sec Interpretive Data Heparin therapeutic range: 66.0 - 100.0 seconds. Range based on correlation with therapeutic heparin activity range of 0.3 - 0.7 Units/mL. Current interpretive data was last revised on 2023. Testing performed by: [facility], [address] [place]., [address] DRVVT Screen Ratio 0.94 0.00-1.20 Ratio Testing performed by: [facility], [address] [facility], [address] SCT Scr Ratio 1.03 0.00-1.16 Ratio Testing performed by: [facility], [address] [place]., [address] LA Interpretation Negative Interpretive data Lupus anticoagulants (LA) are acquired autoantibodies that interfere with invitro clotting in a phospholipid-dependent manner and are associated with an increased risk of thromboembolic events and complications. Routine APTT and PT reagents are not sensitive to inhibition by LA, and should not be used as screening tests. The laboratory follows ISTH 2009 guidelines (Pengo, 2009) for LA testing and interpretation: Two sensitive methods performed in parallel improve sensitivity. One activates the intrinsic pathway (Silica-APTT) and one activates the common pathway (dilute Gustavo's viper venom time - dRVVT). Each method begins with a SCREEN step, and if neither is prolonged, no further testing is performed and the interpretation is: NO LA DETECTED. If either screening test is prolonged, then additional steps are performed to provide specificity. A POSITIVE LA result occurs if either one or both tests produce a positive CONFIRM result. An INDETERMINATE result means results cannot distinguish between coagulopathy and a weak LA. Consider retesting when PT/INR is less prolonged, if clinical indicated. To support laboratory confirmation of antiphospholipid syndrome, persistence of a positive LA result should be verified by repeat testing at least 12 weeks later (Shwetha, 2006). Prior to LA testing, the laboratory screens patient plasma samples for evidence of heparin contamination, which is neutralized prior to LA testing, and the following interfering conditions which require canceling LA testing: INR >3.0, fibrinogen < 100 mg/dl, use of direct oral or IV anticoagulants other than heparin. References: 1) Hermelinda V, Nelda A, [place] [facility], Oryao TL, Julien M, De Simon PG. Update of the guidelines for lupus anticoagulant detection. J Thromb Haemost. 2009; 7:2958-6116. 2. Shwetha S. et al. International consensus statement on an update of the classification criteria for definite antiphospholipid syndrome (APS). J Thromb Haemost. 2006; 4:295-306. Current interpretive data was last revised on 2018 Testing performed by: [facility], [address] [place]., [address] Comprehensive metabolic adeola jackson (CMP) Reviewed date:03/25/2025 09:27:29 PM Interpretation: Performing Lab:[facility] , [address] [facility]. [place] [address] Notes/Report: Sodium 141 135-145 mmol/L Plasma Potassium 3.9 3.3-4.9 mmol/L Chloride 103 97-110 mmol/L Total CO2 23 22-32 mmol/L Anion Gap 15 2-15 mmol/L BUN 21 6-25 mg/dL Creatinine 1.09 0.60-1.10 mg/dL Glucose 100 70-199 mg/dL Interpretive Data Fasting glucose >/= 126 mg/dl [...] Current interpretive data was last revised 2022. Total Calcium 9.6 8.5-10.3 mg/dL Total Bilirubin 0.6 0.1-1.2 mg/dL Plasma Total Protein 7.8 6.5-8.5 g/dL Albumin 4.6 3.5-5.0 g/dL Alkaline Phosphatase 97 40-130 Units/L ALT 22 7-45 Units/L AST 25 10-45 Units/L RONY reflex titer pattern MARCY + dsDNA Reviewed date:09/17/2024 11:06:30 AM Interpretation: Performing Lab:[facility] , [address] [facility]. [place] [address] Notes/Report: RONY, Qual Negative Interpretive Data Normal range for RONY Qualitative Antibody = Negative. 1. RONY is performed using indirect immunofluorescence against HEp-2 cells 2. RONY titers are performed on all positive qualitative results. 3. A significantly positive RONY result is defined as a positive nuclear fluorescence at a titer of 1:80 or greater. 4. 15% of normal people above age 65 have significantly positive RONY results. 5% or less of normal people age 65 or under have significantly positive RONY results. Current interpretive data was last revised on 2020. Testing performed by: [facility], [address] [facility], [place]., [address] Differential Automated Reviewed date:09/10/2024 05:08:10 PM Interpretation: Performing Lab:[facility] , [address] [facility]. [place] [address] Notes/Report: Neut Abs 4.8 1.5-6.5 K/cumm ImmGran Abs 0.0 0.0-0.1 K/cumm Lymphocyte Abs 2.5 0.8-3.3 K/cumm Pitkin Abs 0.6 0.2-0.8 K/cumm Eos Abs 0.1 0.0-0.5 K/cumm Baso Abs 0.0 0.0-0.1 K/cumm Neut Pct 60.1 Interpretive Data Percent cell count reference ranges are not reported, since discordance with absolute values may lead to misinterpretation of CBC data. Current Interpretive Data was last revised on 2018. ImmGran Pct 0.1 Interpretive Data Percent cell count reference ranges are not reported, since discordance with absolute values may lead to misinterpretation of CBC data. Current Interpretive Data was last revised on 2018. Lymph Pct 31.0 Interpretive Data Percent cell count reference ranges are not reported, since discordance with absolute values may lead to misinterpretation of CBC data. Current Interpretive Data was last revised on 2018. Pitkin Pct 7.3 Interpretive Data Percent cell count reference ranges are not reported, since discordance with absolute values may lead to misinterpretation of CBC data. Current Interpretive Data was last revised on 2018. Eos Pct 1.1 Interpretive Data Percent cell count reference ranges are not reported, since discordance with absolute values may lead to misinterpretation of CBC data. Current Interpretive Data was last revised on 2018. Baso Pct 0.4 Interpretive Data Percent cell count reference ranges are not reported, since discordance with absolute values may lead to misinterpretation of CBC data. Current Interpretive Data was last revised on 2018. eGFR Reviewed date:09/10/2024 05:08:10 PM Interpretation: Performing Lab:[facility] , [address] [facility] [facility]. [facility] [address] Notes/Report: eGFR 79 >=60 mL/min/1.73 m2 Interpretive Data Reference Interval Normal >/= 90 [...] Current interpretive data was last reviewed 2021. Cardio IgG IgM Reviewed date:09/11/2024 12:51:53 PM Interpretation: Performing Lab:[facility] , [address] [place] [address]. [facility] [address] Notes/Report: Interpretive Data Negative: <20 MPL U/mL Positive: > or = 20 MPL U/mL Anticardiolipin antibodies are associated with certain clinical events including unexplained arterial and venous thromboemboli, and unexplained morbidity. However, detection of low levels of anticardiolipin antibodies occurs in both healthy individuals and patients with co-morbidities not associated with the antiphospholipid antibody (APA) syndrome including inflammatory and infectious conditions. In order to improve specificity, the International Congress on Antiphospholipid Antibodies recommends ACL antibodies of IgG or IgM isotype present in medium or high titer (e.g. > 40 MPL, or >the 99th percentile), on two or more occasions, at least 12 weeks apart, to support a diagnosis of antiphospholipid syndrome. The cutoff for this assay was developed from data based on the 99th percentile. In addition, the International Congress on Antiphospholipid Antibodies does not recommend testing for IgA NI. The ACL IgM test can produce false positive results due to cross-reactivity with Rheumatoid factor, dsDNA or certain infectious disease antibodies. These results were obtained with the [employer] TV 2200 System. Cardiolipin IgM values obtained with different manufacturers' assay methods may not be used interchangeably. Current interpretive data was last revised on 2017. Cardiolipin Ab, IgG <1.6 <=19.9 GPL U/mL antibodies occurs in both healthy individuals and patients with co-morbidities not associated with the antiphospholipid antibody (APA) syndrome including inflammatory and infectious conditions. In order to improve specificity, the International Congress on Antiphospholipid Antibodies recommends ACL antibodies of IgG or IgM isotype present in medium or high titer (e.g. > 40 GPL, or >the 99th percentile), on two or more occasions, at least 12 weeks apart, to support a diagnosis of antiphospholipid syndrome. The cutoff for this assay was developed from data based on the 99th percentile. In addition, the International Congress on Antiphospholipid Antibodies does not recommend testing for IgA NI. These results were obtained with the [employer] System. Cardiolipin IgG values obtained with different manufacturers' assay methods may not be used interchangeably. Current interpretive data was last revised on 2017. Interpretive Data Negative: <20 GPL U/mL Positive: > or = 20 GPL U/mL Anticardiolipin antibodies are associated with certain clinical events including unexplained arterial and venous thromboemboli, and unexplained morbidity. However, detection of low levels of anticardiolipin Cardiolipin Ab, IgM 0.7 <=19.9 MPL U/mL [facility] Reviewed date:09/14/2024 02:05:02 PM Interpretation: Performing Lab:[facility] , [address] [place] [address]. [facility] [address] Notes/Report: Keyword See Below ACLIP Phospholi pid (Cardiolipin) Antibodies, IgA, Misc Result See Footnote Test Result Flag Unit RefValue Phospholipid Ab IgA, S <9.4 APL -- REFERENCE VALUE -- <15.0 (Negative) Test Performed by: [facility] - [address] [address] [employer] Technician Residential: Alejandro Maciel Ph.D.; CLIA# [id number] MML MISC BLD Reviewed date:09/12/2024 08:33:09 PM Interpretation: Performing Lab:[facility] , [address] [place] [address]. [facility] [address] Notes/Report: Keyword See Below AB2GP Beta 2 Gl ycoprotein 1 Antibodies, IgA, Serum [facility] Result See Footnote Test Result Flag Unit RefValue Beta 2 GP1 Ab IgA, S <9.4 JERRY -- REFERENCE VALUE -- <15.0 (Negative) Test Performed by: [place] [address] H[employer] Technician Residential: Alejandro Maciel Ph.D.; CLIA# [id number] eGFR Reviewed date:03/25/2025 09:27:29 PM Interpretation: Performing Lab:[facility] , [address] [place] [address]. [facility] [address] Notes/Report: eGFR 50 >=60 mL/min/1.73 m2 Interpretive Data Reference Interval Normal >/= 90 [...] of Race in Diagnosing Kidney Disease, JASN 202). The CKD-EPI equation should not be used for patients with unstable renal function and has not been validated in children and those over 70. Current interpretive data was last reviewed 2021. Reason For Referral No Information Medications Medication SIG (Take, Route, Frequency, Duration) Notes Start Date End Date Status Prolia 60 MG/ML as directed Subcutaneous Active DULoxetine HCl 60 MG 1 capsule Orally On ce a day; Duration: 30 days 03/25/2025 Active ARIPiprazole 2 MG 1 tablet Orally at bedtime; Duration: 30 day(s) Active DULoxetine HCl 30 MG 1 capsule Orally On ce a day; Duration: 30 days 03/25/2025 Active Stool Softener 100 MG 1 capsule as neede d Orally Once a day prn; Duration: 30 day(s) Active Calcium + D3 ____ ____ ____ ____; Dura tion: ____ Active amLODIPine-Atorvastatin 10-20 MG 1 tablet Orally Once a day; Duration: 30 day(s) Active Atenolol 50 MG 1 tablet Orally Once a day; Duration: 30 day(s) Active buPROPion HCl ER (XL) 300 MG 1 tablet in the morning Orally Once a day; Duration: 30 day(s) Active LORazepam 1 MG 1 tablet at bedtime as needed Orally Once a day; Duration: ____ Active traMADol HCl 50 MG 1 tablet as needed O rally Once a day prn; Duration: ____ Active Vitamin D3 125 MCG (5000 UT) 1 capsule Orally Once a day; Duration: 30 day(s) Active Vitamin B12 ____ 500 mcg ____ ____; Duration: ____ Active Social History Tobacco Use: Social History Observation Description Date Details (start date - stop date) Never Smoker NA - NA Household Question Answer Notes Marital status: Number of children in household: 0 Tobacco Control (Standard) Question Answer Notes Tobacco use: Nonsmoker Problems Problem Type SNOMED Code ICD Code Onset Dates Problem Status W/U Status Risk Notes Problem Sjogren's syndro me with keratoconjunctivitis sicca (M35.01) Active confirmed Problem Generalized osteoarthritis (713189888) Generalized osteoarthritis (M15.9) Active confirmed Vital Signs Heart Rate 91 /min 03/25/2025 Temperature 98.0 degrees Fahrenheit 03/25/2025 Blood pressure diastolic 70 mm Hg 03/25/2025 Oximetry 95 % 03/25/2025 Height-cm 160.02 cm 03/25/2025 Weight-kg 63.23 kg 03/25/2025 Height 63 in 03/25/2025 Blood pressure systolic 116 mm Hg 03/25/2025 Weight 139.4 lbs 03/25/2025 BMI 24.69 kg/m2 03/25/2025 Encounters Encounter Location Date Provider Diagnosis [facility] [address] [facility], [place] [address] 09/10/2024 Radha Fraire Pain in unspecified joint M25.50 ; RONY positive R76.8 and Other low back pain M54.59 [facility] [address] [address] 09/24/2024 Radha Fraire Sjogren's syndrome w ith keratoconjunctivitis sicca M35.01 ; 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 and Decreased GFR R94.4 [facility] [address] [address] 11/13/2024 Radha Fraire Sjogren's syndrome w ith keratoconjunctivitis sicca M35.01 ; 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 ; Decreased GFR R94.4 and Chronic constipation K59.09 [facility] [address] [facility] [address], [place] [address] 03/25/2025 Radha Fraire Sjogren's syndrome w ith keratoconjunctivitis sicca M35.01 ; 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 ; Decreased GFR R94.4 and Chronic constipation K59.09 [facility] [address] [address] 09/24/2024 Radha Fraire [facility] [address] [address] 11/08/2024 Radha Fraire [facility] [address] [address] 12/24/2024 Radha Fraire [facility] [address] [address] 03/25/2025 Radha Fraire Assessments Encounter Date Diagnosis (ICD Code) Assessment Notes Treatment Notes Treatment Clinical Notes Section Notes 09/10/2024 Pain in unspecified joint (ICD-10 - M25.50) 84 year old female with joint pain and back pain. Labs suggest Sjogren's disease. She likely also has osteoarthritis and perhaps lumbar spineal stenosis (?neurogenic claudication). Additional serologies will be ordered. Follow up visit will be scheduled. Thank you for referring this patient. cc Dr. Gabriela Loco 09/10/2024 RONY positive (ICD-10 - R76.8) 84 year old female with joint pain and back pain. Labs suggest Sjogren's disease. She likely also has osteoarthritis and perhaps lumbar spineal stenosis (?neurogenic claudication). Additional serologies will be ordered. Follow up visit will be scheduled. Thank you for referring this patient. cc Dr. Gabriela Loco 11/13/2024 Sjogren's syndrome w ith keratoconjunctivitis sicca (ICD-10 - M35.01) advised patient constipation is not a common side effect of prolia, OK to start, advised to try fiber supplements for constipation. 11/13/2024 Generalized osteoarthritis (ICD-10 - M15.9) advised patient constipation is not a common side effect of prolia, OK to start, advised to try fiber supplements for constipation. 09/24/2024 Sjogren's syndrome w ith keratoconjunctivitis sicca (ICD-10 - M35.01) labs dis cussed with patient, has Sjogren's disease and osteoarthritis, on tramadol and celebrex, GFR borderline, will monitor, advised to increase water intake, return in 6 months 09/24/2024 Generalized osteoarthritis (ICD-10 - M15.9) labs discussed with patient, has Sjogren's disease and osteoarthritis, on tramadol and celebrex, GFR borderline, will monitor, advised to increase water intake, return in 6 months 03/25/2025 Sjogren's syndrome w ith keratoconjunctivitis sicca (ICD-10 - M35.01) change wellbutrin to cymbalta 30mg/day, increase to 60mg/day in 1 month, overlap with wellbutrin by 1 month, lab today, return in 3 months 03/25/2025 Generalized osteoarthritis (ICD-10 - M15.9) change wellbutrin to cymbalta 30mg/day, increase to 60mg/day in 1 month, overlap with wellbutrin by 1 month, lab today, return in 3 months 11/13/2024 Decreased GFR (ICD-1 0 - R94.4) advised patient constipation is not a common side effect of prolia, OK to start, advised to try fiber supplements for constipation. 09/24/2024 Decreased GFR (ICD-1 0 - R94.4) labs discussed with patient, has Sjogren's disease and osteoarthritis, on tramadol and celebrex, GFR borderline, will monitor, advised to increase water intake, return in 6 months 09/10/2024 Other low back pain (ICD-10 - M54.59) 84 year old female with joint pain and back pain. Labs suggest Sjogren's disease. She likely also has osteoarthritis and perhaps lumbar spineal stenosis (?neurogenic claudication). Additional serologies will be ordered. Follow up visit will be scheduled. Thank you for referring this patient. cc Dr. Gabriela Loco 11/13/2024 Chronic constipation (ICD-10 - K59.09) advised patien t constipation is not a common side effect of prolia, OK to start, advised to try fiber supplements for constipation. 03/25/2025 Decreased GFR (ICD-1 0 - R94.4) change wellbutrin to cymbalta 30mg/day, increase to 60mg/day in 1 month, overlap with wellbutrin by 1 month, lab today, return in 3 months 03/25/2025 Chronic constipation (ICD-10 - K59.09) change wellbutrin to cymbalta 30mg/day, increase to 60mg/day in 1 month, overlap with wellbutrin by 1 month, lab today, return in 3 months Plan Of Treatment Pending Test Test Name Order Date RONY Ql reflex to Qn 09/10/2024 Beta 2 Glycoprotein IgA Ab 09/10/2024 Cardiolipin Ab (IgA) 09/10/2024 Cardiolipin Ab (Ig G) 09/10/2024 Cardiolipin Ab (Ig M) 09/10/2024 Next Appt Details Provider Name:Radha Juno, 06/24 01:15:00 PM, [address] [facility] [address], [place], [address], Insurance Providers Payer Name Payer Address Payer Phone Subscriber Number Group Number Insured Name Patient Relationship to Insured Coverage Start Date Coverage End Date [employer] Medicare Hmo [address] [place] [address] [phone] [id number] Candice Forde Self - patient is the insured Medical (General) History Medical History History ICD Code abdominal adhesion, calcific ation of spleen, diverticulosis, diverticulitis, hypertension, neuropathy, hyperlipidemia, Schatzki's ring, TMJ dysfunction Surgical History Surgery Date(Month/Year) hysterectomy, appendectomy, bilateral kn ee replacement
--- OUTSIDE RECORDS SUMMARY | 2025-04-08 12:38 | XMS_ITS | Clinical Summary ---
Author Organization [facility] Address [address] [place] [address] Care Team Providers Care Mechanical Process Engineer Name Role Phone Gabriela Loco MD Primary Care Provider + Allergies Active Allergy Reactions Criticality Noted Date [...] follow-up care 09/04/2012 Osteoarthritis of knee 05/05/2010 Encounters Date Type Department Care Team Description 03/25/2025 1:40 PM CDT Lab [facility] [address] [place] [phone] from Last 3 Months Surgical History Surgery Date Site/Laterality Comments CORRECTION HAMMER TOE THROAT SURGERY KNEE SURGERY JOINT REPLACEMENT Medical History Medical History Date Comments Aftercare following joint re placement surgery Aftercare following joint re placement - (Added by TW Conv) Osteoporosis Arthritis Family History Medical History Relation Name Comments Tuberculosis Father Heart disease Mother Relation Name Status Comments Father Mother Social History Tobacco Use Types Packs/Day Years [...] on file 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 Gender Identity Not on file Sexual Orientation Not on file Occupation Industry Job Start Date Job End Date retired Not on file Not on file Not on file Obstetrics History Last Filed Vital Signs Vital Sign Reading [...] 07/20/2023 9:49 AM CDT Plan of Treatment Health Maintenance Due Date Last Done Comments Depression Screening 1940 Fall Risk Assessment 1940 Osteoporosis Screening-Bone Density Scan 1940 Hepatitis B Screening 1959 Well Visit 65+ 2006 DTaP/Tdap/Td Vaccine (1 - Tdap) 12/05/2010 1 Zoster Vaccine (3 of 3) 05/21/2019 03/26/2019, 01/23 Covid-19 Vaccine (7 2023-2 5 season) 2024 06/17/2023, 02/11/2023, 06/25/2022, Additional history exists Influenza Vaccine (Season Ended) 2025 06/17/2023, 06/25/2022, 06/20/2021, Additional history exists Pneumococcal vaccine 65+ Completed 022, 07/12/2018, 07/21/2009 Procedures Procedure Name Priority Date/Time Associated Diagnosis [...] MD LAB BLOOD ORDERABLES Final Resul t [facility] [address] Department [place] [address] * Comprehensive metabolic panel (03/25/2025 1:46 PM CDT) Sodium 141 135 - 145 mmol/L Potassium, pl 3.9 3.3 - 4.9 mmol/L [facility] Chloride 103 97 - 110 mmol/L [facility] CO2 23 22 - 32 mmol/L [facility] Anion gap 15 2 - 15 mmol/L [facility] BUN 21 6 - 25 mg/dL [facility] Creatinine 1.09 0.60 - 1.10 mg/dL [facility] Glucose 100 70 - 199 mg/dL [facility] Comment: Interpretive Data Fasting glucose >/= 126 [...] classification and Diagnosis of Diabetes Diabetes Care 202; 46: S19-S40. Current interpretive data was last revised 2022. Calcium 9.6 8.5 - 10.3 mg/dL [facility] Bilirubin, total 0.6 0.1 - 1.2 mg/dL [facility] Protein, pl 7.8 6.5 - 8.5 g/dL [facility] Albumin 4.6 3.5 - 5.0 g/dL [facility] Alk phos 97 40 - 130 Units/L [facility] ALT 22 7 - 45 Units/L [facility] AST 25 10 - 45 Units/L [facility] Blood 03/25/2025 1:46 PM CDT 03/25/2025 3:16 PM CDT us Radha Fraire MD LAB BLOOD ORDERABLES Final Resul t [facility] [address] Department [place] [address] from Last 3 Months Insurance AETNA MEDICARE AETNA MEDICARE GOLD Care Teams Mechanical Process Engineer Relationship Specialty Start Date End Date Gabriela Loco MD PCP - General 10/02/17
--- OUTSIDE RECORDS SUMMARY | 2025-04-08 12:38 | XMS_ITS | Clinical Summary ---
Author Organization [facility] edulio Address [facility] [facility] [place] [address] Care Team Providers Care Internal Review And Audit Compliance Name Role Phone Unavailable Primary Care Provider Unavailabl e Source Comments [facility] edulio,non-owned Affiliates and Associated Physician Practices is amultiple site organization consisting of ambulatory clinics and hospital sitesin [place], [place], [place] and [place]. This disclosure is being madepursuant to the Care Everywhere program and may not contain all information available regarding this patient. Last updated 18.[facility] edulio Allergies Active Allergy Reactions Criticality Noted Date Comments Augmentin GI Discomfort High 01/01/2013 Medications * Be aware that medications may not be up to date on this document. Alwaysverify current medications with the patient. LORazepam (ATIVAN) 0.5 MG tablet Take 0.5 mg by mouth every 8 hours as needed. 3 per day Active atenolol (TENORMIN) 25 MG tablet Take 25 mg by mouth once daily. Active meloxicam (MOBIC) 15 MG tablet Take 15 mg by mouth once daily. Active aspirin 81 MG tablet Take 81 mg by mouth once daily. Active Calcium Carbonate-Vitami n D (CALTRATE 600+D) 600-400 MG-UNIT TABS Take 1 Tab by mouth 2 times daily. Active amlodipine-atorv astatin (CADUET) 2.5-20 MG tablet Take 1 Tab by mouth once daily. Active buPROPion XL 24hr (WELLBUTRIN-XL) 300 MG tablet Take 300 mg by mouth every morning. Active darifenacin CR 24hr (ENABLEX) 7.5 MG tablet Take 1 Tab by mouth once daily. 30 Tab 11 07/26/2013 Active LORazepam (ATIVAN) 1 MG tablet 1-2 tabs qhs, not to exceed 2mg per night. 60 Tab 0 08/10/2013 Active Active Problems Problem Noted Date Diagnosed Date Essential hypertension, benign 01/01/2013 Depressive disorder, not elsewhere classified Anxiety state 01/01/2013 Overview (07/03/2015): Other and unspecified hyperlipidemia 01/01/2013 Immunizations Immunization Administration Dates Next Due INFLUENZA VACCINE 07/05/2013 Family History Medical History Relation Name Comments Depression Father father's side o f family Tuberculosis Father Cancer - Breast Neg Hx Relation Name Status Comments Father Social History Tobacco Use Types Packs/Day Years Used Date Smoking Tobacco: Never Alcohol Use Standard Drinks/Week Comments No 0 (1 standard drink = 0.6 oz pur e alcohol) Comments No Sex and Gender Information Value Date Recorded Sex Assigned at Not on file 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 Gender Identity Not on file Sexual Orientation Not on file Last Filed Vital Signs Vital Sign Reading Time Taken Comments Blood Pressure 157/100 08/02/2013 10:51 AM CDT Pulse 88 08/02/2013 10:51 AM CDT Temperature 36.3 C (97.4 F) 08/02/2013 10:51 AM CDT Respiratory Rate - - Oxygen Saturation - - Inhaled Oxygen Concentration - - Weight 74.4 kg (164 lb) 08/02/2013 10:51 AM CDT Height 162.6 cm (5' 4) 08/02/2013 10:51 AM CDT Body Mass Index 28.15 08/02/2013 10:51 AM CDT Plan of Treatment Health Maintenance Due Date Last Done Comments DTAP/TDAP/TD VACCINES (1 - Tdap) 1960 PNEUMOCOCCAL VACCINE 50+ (1 of 1 - PCV) 1991 ZOSTER VACCINE (1 of 2) 1991 Respiratory Syncytial Virus (RSV) Vaccine Pt: or over 60 yrs (1 - 1-dose 75+ series) 2016 COVID-19 VACCINE (1 - 2023-2 5 season) 2024 DEPRESSION SCREENING 10/03/2024 INFLUENZA VACCINE (Season Ended) 2025 07/05/2013 BONE DENSITY TESTING Addressed 05/21/2013 (Previously completed) Overridden with the intention of not completing the topic HEPATITIS B VACCINE Aged Out No longe r eligible based on patient's age to complete this topic HIB VACCINE Aged Out No longer eligi ble based on patient's age to complete this topic HPV VACCINE Aged Out No longer eligi ble based on patient's age to complete this topic MENINGOCOCCAL (Group B) VACCINE SHARED DECISION-MAKING Aged Out No longer eligible b ased on patient's age to complete this topic MENINGOCOCCAL GROUPS A/C/Y/W VACCINE Aged Out No longer eligible b ased on patient's age to complete this topic Insurance MEDICARE HEALTHLINK HEALTHLINK
[2025-04-08 19:14] LABS: Anion Gap 10 mmol/L (4-12); Blood Urea Nitrogen 15 mg/dL (7-17); Calcium 9.5 mg/dL (8.4-10.2); Carbon Dioxide 25 mmol/L (22-30); Chloride 106 mmol/L (98-107); Estimated Glomerular Filt Rate > 60; Glucose 84 mg/dL (65-110); Potassium 3.7 mmol/L (3.4-5.0); Sodium 141 mmol/L (137-145)
== END 2025-04-08 12:36 | disposition home or self-care (01) ==
LOC: ANHGOSHLAB 12:36
PROVIDERS: PCP Family Medicine; Visit Provider Family Medicine
DX: N28.9 Disorder of kidney and ureter, unspecified (principal)
CPT/HCPCS: 36415; 80048

== ENCOUNTER 2025-06-11 12:51 | Outpatient (CLI) | payer MEDICARE, SELFPAY ==
--- OUTSIDE RECORDS SUMMARY | 2025-05-29 05:00 | XMS_ITS ---
Author Organization [facility] [employer] Address [facility] [address] Care Team Providers Care Optometrist Owner Name Role Phone JAZMYNE RAHMAN, ANDRE Primary Care Provider Unav ailable Hiwot Leiva Unavailable [phone] Teresita Feliciano Unavailable [phone] REASON FOR VISIT Therapy TONAL REGULATOR Social History Sex Assigned At : Social History Observation Description Sex Assigned At Female Encounters Encounter Location Date Provider Diagnosis [facility] [employer] [place] [address] [address] 05/29/2025 Teresita Feliciano Plan Of Treatment Next Appt Details Provider Name:Teresita Feliciano , 07/01/2025 02:00:00 PM, [address], [facility] [address], [place], [address], Progress Notes * Candice ROQUEDOB:[birth year] (84 yo F)Acc No.[id number]:05/29/2025 Patient: Bertha Candice carney Provider: Bill FELICIANO LCSW :1940 A ge:84 Y S ex:Female Date:05/29/2025 [facility] [facility] Pcp:ANDRE SAMANO MD Data: * Chief Complaints: * T herapy TONAL REGULATOR * Electronic signature of Albertina Feliciano LCSW on 06/11/2025 at 02:12 PM CDT Sign off status: Pending Signatures: No Ad Hoc Signature Added * Provider: Bill FELICIANO LCSW Date: 0 05/29/2025 Generated for Gunner Dior on: 0 06/11/2025 02:12 PM CDT
--- OUTSIDE RECORDS SUMMARY | 2025-06-11 14:12 | XMS_ITS | Clinical Summary ---
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 Gender Identity Not on file Sexual Orientation [...] 3) 05/21/2019 03/26/2019, 01/23 Covid-19 Vaccine (7 2024-2 6 season) 2025 06/17/2023, 02/11/2023, 06/25/2022, Additional history exists Influenza Vaccine (#1) 2025 , 06/25/2022, 06/20/2021, Additional history exists Pneumococcal vaccine [...] MD LAB BLOOD ORDERABLES Final Resul t [facility] [address] Department [place] [address] * Comprehensive metabolic panel (03/25/2025 1:46 PM CDT) Sodium 141 135 - 145 mmol/L Potassium, pl 3.9 3.3 - 4.9 mmol/L [facility] Chloride 103 97 - 110 mmol/L [facility] CO2 23 22 - 32 mmol/L [facility] Anion gap 15 2 - 15 mmol/L [facility] BUN 21 6 - 25 mg/dL [facility] Creatinine 1.09 0.60 - 1.10 mg/dL [facility] Glucose 100 70 - 199 mg/dL [facility] Comment: Interpretive Data Fasting glucose >/= 126 [...] 2022. Calcium 9.6 8.5 - 10.3 mg/dL [facility] Bilirubin, total 0.6 0.1 - 1.2 mg/dL [facility] Protein, pl 7.8 6.5 - 8.5 g/dL [facility] Albumin 4.6 3.5 - 5.0 g/dL [facility] Alk phos 97 40 - 130 Units/L [facility] ALT 22 7 - 45 Units/L [facility] AST 25 10 - 45 Units/L [facility] Blood 03/25/2025 1:46 PM CDT 03/25/2025 3:16 PM CDT us Radha Fraire MD LAB BLOOD ORDERABLES Final Resul t [facility] [address] Department [place] [address] from Last 3 Months Insurance AETNA MEDICARE AETNA MEDICARE GOLD Care Teams Adult Day Care Worker Relationship Specialty Start Date End Date Gabriela Loco MD PCP - General 10/02/17
--- OUTSIDE RECORDS SUMMARY | 2025-06-11 14:12 | XMS_ITS | Patient Health Record ---
Author Organization [facility] jose c Address [address] [facility] [address] [place] [address] Care Team Providers Care Laundry Operator Finishing Name Role Phone Gabriela Loco MD Primary Care Provider Unav dianneable Radha Fraire Unavailable [phone] Allergies Allergen (clinical drug ingredient) Drug/Non Drug [...] fadi Results Component Value Reference Range Notes Differential Automated Reviewed date:09/10/2024 05:08:10 PM Interpretation: Performing Lab:[facility] , [address] [facility] [facility]. [facility] [address] Notes/Report: Neut Abs 4.8 1.5-6.5 K/cumm ImmGran Abs 0.0 0.0-0.1 K/cumm Lymphocyte Abs 2.5 0.8-3.3 K/cumm Suwannee Abs 0.6 0.2-0.8 K/cumm Eos Abs 0.1 [...] Interpretive Data was last revised on 2018. Su[place]nee Pct 7.3 Interpretive Data Percent cell count [...] eGFR Reviewed date:09/10/2024 05:08:10 PM Interpretation: Performing Lab:[facility] , [address] [place] [address]. [place] [address] Notes/Report: eGFR 79 >=60 mL/min/1.73 m2 Interpretive [...] IgM Reviewed date:09/11/2024 12:51:53 PM Interpretation: Performing Lab:[facility] , [facility] [facility]. [place] [address] Notes/Report: Current interpretive data was last revised on 2017. assay methods may not be used interchangeably. 2200 System. Cardiolipin IgM values obtained with different manufacturers' disease antibodies. These results were obtained with the TRUE linkswear cross-reactivity with Rheumatoid factor, dsDNA or certain infectious NI. The ACL IgM test can produce false positive results due to Congress on Antiphospholipid Antibodies does not recommend testing for IgA data based on the 99th percentile. In addition, the International antiphospholipid syndrome. The cutoff for this assay was developed from more occasions, at least 12 weeks apart, to support a diagnosis of medium or high titer (e.g. > 40 MPL, or >the 99th percentile), on two or Antibodies recommends ACL antibodies of IgG or IgM isotype present in improve specificity, the International Congress on Antiphospholipid syndrome including inflammatory and infectious conditions. In order to co-morbidities not associated with the antiphospholipid antibody (APA) antibodies occurs in both healthy individuals and patients with morbidity. However, detection of low levels of anticardiolipin including unexplained arterial and venous thromboemboli, and unexplained Anticardiolipin antibodies are associated with certain clinical events Positive: > or = 20 MPL U/mL Negative: <20 MPL U/mL Interpretive Data Cardiolipin Ab, IgG <1.6 <=19.9 GPL U/mL [...] NI. These results were obtained with the Greentoelex 2200 System. Cardiolipin IgG values obtained with different [...] Cardiolipin Ab, IgM 0.7 <=19.9 MPL U/mL [facility] Reviewed date:09/14/2024 02:05:02 PM Interpretation: Performing Lab:[facility] , [address] [place] [address]. [facility] [address] Notes/Report: Keyword See Below ACLIP Phospholi pid (Cardiolipin) Antibodies, IgA, Misc Result See Footnote Test Result Flag Unit RefValue Phospholipid Ab IgA, S <9.4 APL -- REFERENCE VALUE -- <15.0 (Negative) Test Performed by: [place] [address] Oral Health Therapist: Alejandro Maciel Ph.D.; CLIA# [id number] [facility] Reviewed date:09/12/2024 08:33:09 PM Interpretation: Performing Lab:[facility] , [address] [place] [address]. [facility] [address] Notes/Report: Keyword See Below AB2GP Beta 2 Gl ycoprotein 1 Antibodies, IgA, Serum Misc Result See Footnote Test Result Flag Unit RefValue Beta 2 GP1 Ab IgA, S <9.4 JERRY -- REFERENCE VALUE -- <15.0 (Negative) Test Performed by: [place] [address] Oral Health Therapist: Alejandro Maciel Ph.D.; CLIA# [id number] Lupus Anticoagulant w/Reflex Reviewed date:09/12/2024 02:18:11 PM Interpretation: Performing Lab:[facility] , [address] [facility]. [facility] [address] Notes/Report: PT 10.8 9.7-13.0 sec Testing performed by: [facility], [address] [place]., [address] INR 1.00 0.90-1.20 Interpretive data Oral anticoagulant therapeutic ranges: Venous thromboembolism prophylaxis or treatment: 2.0-3.0 CARDIOLOGY Standard range: 2.0-3.0 High-intensity range: 2.5-3.5 Refer to indication-specific guidelines for appropriate target ranges for prosthetic heart valve replacement. Current interpretive data was last revised on 2019. Testing performed by: [facility], [address] [place]., [address] aPTT 30 28-38 sec Interpretive Data Heparin therapeutic range: 66.0 - 100.0 seconds. Range based on correlation with therapeutic heparin activity range of 0.3 - 0.7 Units/mL. Current interpretive data was last revised on 2023. Testing performed by: [facility], [address] [place]., [address] DRVVT Screen Ratio 0.94 0.00-1.20 Ratio Testing performed by: [facility], [address] [place]., [address] SCT Scr Ratio 1.03 0.00-1.16 Ratio Testing performed by: [facility], [address] [place] [address]., [address] [place] Interpretation Negative Interpretive data Lupus anticoagulants [...] heparin. References: 1) Hermelinda V, Nelda A, Varsha JH, Santo TL, Julien M, De Simon PG. Update of the guidelines for lupus anticoagulant detection. J Thromb Haemost. 2009; 7:7678-8578. 2. Shwetha Chappell. et al. International consensus statement on an update of the classification criteria for definite antiphospholipid syndrome (APS). J Thromb Haemost. 2006; 4:295-306. Current interpretive data was last revised on 2018 Testing performed by: [facility], [address] [place]., [address] Histone ab Reviewed date:09/19/2024 04:56:52 PM Interpretation: Performing Lab:[facility] , [facility] [facility]. [facility] [address] Notes/Report: Histone Ab <1.0 Value Explanation of Results ------ <1.0 Negative 1.0-1.5 Weak Positive 1.6-2.5 Moderate Positive >2.5 Strong Positive Test Performed at: [employer] [facility] [address] [place] [address] ANKUSH NORRIS Hep C AB Reviewed date:09/10/2024 05:08:11 PM Interpretation: Performing Lab:[facility] , [address] [facility]. [place] [address] Notes/Report: Hepatitis C Antibody Nonreactive Nonreactive Interpretive [...] Interpretive data was last revised on 2019. Hep B surf AG Reviewed date:09/10/2024 05:08:11 PM Interpretation: Performing Lab:[facility] , [address] [facility]. [facility] [address] Notes/Report: Hepatitis B Surface Antigen Nonreactive Nonreactive G6PD Ql Reviewed date:09/11/2024 08:03:46 AM Interpretation: Performing Lab:[facility] , [address] [facility] [facility] [address] Notes/Report: G6PD, Qual Normal Normal Interp data: G6PD activity should be interpreted in the context of a patient's hematocrit. Hematocrit < 20% may lead to a falsely deficient result, while hematocrit > 50% may lead to a falsely normal result. Current interpretive data was last revised on 2020. Testing performed by: [facility], [address] [facility] [place]., [address] Creatine Kinase Reviewed date:09/10/2024 05:08:11 PM Interpretation: Performing Lab:[facility] , [address] [facility]. [place] [address] Notes/Report: Total CK 57 30-200 Units/L Comprehensive metabolic pane l (CMP) Reviewed date:09/10/2024 05:08:11 PM Interpretation: Performing Lab:[facility] , [address] [facility]. [place] [address] Notes/Report: Sodium 143 135-145 mmol/L Plasma Potassium [...] 24 7-45 Units/L AST 24 10-45 Units/L Complement C4 Reviewed date:09/10/2024 05:08:11 PM Interpretation: Performing Lab:[facility] , [address] [place] [address]. [facility] [address] Notes/Report: Complement, C4 32 10-40 mg/dL Complement C3 Reviewed date:09/10/2024 05:08:11 PM Interpretation: Performing Lab:[facility] , [address] [place] [address]. [facility] [address] Notes/Report: Complement, C3 154 90-180 mg/dL CBC w auto diff Reviewed date:09/10/2024 05:08:11 PM Interpretation: Performing Lab:[facility] , [address] [place] [address]. [facility] [address] Notes/Report: WBC 8.0 3.8-9.9 K/cumm Hgb 14.1 11.9-15.5 g/dL Hct 41.9 35.6-45.5 % Platelet Ct 251 150-400 K/cumm MPV 10.8 9.1-12.3 fL RBC 4.47 3.90-5.20 M/cumm MCV 93.7 81.3-96.4 fL MCH 31.5 27.1-33.3 pg MCHC 33.7 32.3-35.7 g/dL RDW CV 11.9 11.1-14.9 % RDW SD 41.0 35.7-48.1 fL NRBC Abs Auto 0.00 0.00-0.01 K/cumm C Reactive Protein Reviewed date:09/10/2024 05:08:10 PM Interpretation: Performing Lab:[facility] , [address] [place] [address]. [facility] [address] Notes/Report: C-Reactive Protein <3.0 <=10.0 mg/L Beta 2 Glycoprotein Ab IgG, IgM Reviewed date:09/11/2024 12:51:54 PM Interpretation: Performing Lab:[facility] , [address] [place] [address]. [facility] [address] Notes/Report: B2GPI IgG <1.4 <=19.9 units/mL Interpretive Data Negative: <20 U/mL Positive: > or = 20 U/mL Beta-2 glycoprotein 1 (Beta-2 GP1) antibodies are a more specific marker of thrombotic risk. It is expected that some samples will be ACL positive and Beta-2 GH5ufuhyrgu. In order to improve specificity, the International Congress on Antiphospholipid Antibodies recommends Beta-2 GP1 antibodies of IgG or IgM isotype (> the 99th percentile), obtained twice, at least 12 weeks apart, to support a diagnosis of antiphospholipid syndrome. The cutoff for this assay was developed from data based on the 99th percentile. These results were obtained with the TRUE linkswear 2200 System. Beta 2GP1 IgG values obtained [...] factor. These results were obtained with the TRUE linkswear 2200 System. Beta-2 GP1 IgM values obtained with different manufacturers' assay methods may not be used interchangeably. Current interpretive data was last revised on 2017. Anti-CCP (Cyclic Citrullinat ed Peptide Ab) Reviewed date:09/11/2024 12:51:53 PM Interpretation: Performing Lab:[facility] , [address] [place] [address]. [place] [address] Notes/Report: CCP Ab <0.5 <=2.9 units/mL Interpretive data Negative: <3 units/mL Positive: > or equal to 3 units/mL Current interpretive data was last revised on 2017. eGFR Reviewed date:03/25/2025 09:27:29 PM Interpretation: Performing Lab:[facility] , [address] [place] [address]. [place] [address] Notes/Report: eGFR 50 >=60 mL/min/1.73 m2 Interpretive [...] Current interpretive data was last reviewed 2021. RONY reflex titer pattern MARCY + dsDNA Reviewed date:09/17/2024 11:06:30 AM Interpretation: Performing Lab:[facility] , [address] [place] [address]. [place] [address] Notes/Report: RONY, Qual Negative Interpretive Data Normal [...] last revised on 2020. Testing performed by: [facility], [address] [place]., [address] Comprehensive metabolic pane l (CMP) Reviewed date:03/25/2025 09:27:29 PM Interpretation: Performing Lab:[facility] , [address] [place] [address]. [facility] [address] Notes/Report: Sodium 141 135-145 mmol/L Plasma Potassium [...] 22 7-45 Units/L AST 25 10-45 Units/L Reason For Referral No Information Medications Medication SIG (Take, Route, Frequency, Duration) Notes Start Date End Date Status Prolia 60 MG/ML as directed Subcutaneous Active DULoxetine HCl 60 MG 1 capsule Orally On ce a day; Duration: 30 days 03/25/2025 Active ARIPiprazole 2 MG 1 tablet Orally at bedtime; Duration: 30 day(s) Active Stool Softener 100 MG 1 capsule [...] Orally Once a day; Duration: ____ Active DULoxetine HCl 30 MG 1 capsule Orally On ce a day; Duration: 90 days 03/25/2025 Active traMADol HCl 50 MG 1 tablet [...] Problem Status W/U Status Risk Notes Problem Information temporarily unavailable Sjogren's syndrome with keratoconjunctivitis sicca (M35.01) Active confirmed Problem Information temporarily unavailable Generalized osteoarthritis (M15.9) Active confirmed Vital Signs Heart Rate 91 /min 03/25/2025 Temperature 98.0 degrees Fahrenheit 03/25/2025 Blood pressure diastolic 70 mm Hg 03/25/2025 Oximetry 95 % 03/25/2025 Height-cm 160.02 cm 03/25/2025 Weight-kg 63.23 kg 03/25/2025 Height 63 in 03/25/2025 Blood pressure systolic 116 mm Hg 03/25/2025 Weight 139.4 lbs 03/25/2025 BMI 24.69 kg/m2 03/25/2025 Encounters Encounter Location Date Provider Diagnosis [facility] [address] [facility] [address], [place] [address] 09/10/2024 Radha Juno Pain in unspecified joint M25.50 ; RONY positive R76.8 and Other low back pain M54.[address] [facility] [address] [facility] [address], [place] [address] 09/24/2024 Radha Du Sjogren's syndrome w ith keratoconjunctivitis sicca M35.01 ; 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 and Decreased GFR R94.[address] [facility] [address] [facility] [address], [place] [address] 11/13/2024 Radha Du Sjogren's syndrome w ith keratoconjunctivitis sicca M35.01 ; 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 ; Decreased GFR R94.4 and Chronic constipation K59.[address] [facility] [address] [facility] [address] [place] [address] 03/25/2025 Radha Du Sjogren's syndrome w ith keratoconjunctivitis sicca M35.01 ; 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 ; Decreased GFR R94.4 and Chronic constipation K59.[address] [facility] [address] [facility] [address], [place] [address] 09/24/2024 Radha Du [facility] [address] [facility] [address], [place] [address] 11/08/2024 Radha Juno [facility] [address] [facility] [address], [place] [address] 12/24/2024 Radha Du [facility] [address], [place] [address] 03/25/2025 Radha Du [facility] [address] [facility] [address], [place] [address] 04/16/2025 Radha Du Sjogren's syndrome w ith keratoconjunctivitis sicca M35.[address] [facility] [address] [facility] [address], [place] [address] 04/16/2025 Radha Du Assessments Encounter Date Diagnosis (ICD Code) Assessment [...] month, lab today, return in 3 months 04/16/2025 Sjogren's syndrome w ith keratoconjunctivitis sicca (ICD-10 - M35.01) 03/25/2025 Generalized osteoarthritis (ICD-10 - M15.9) change [...] G) 09/10/2024 Cardiolipin Ab (Ig M) 09/10/2024 Insurance Providers Payer Name Payer Address Payer Phone Subscriber Number Group Number Insured Name Patient Relationship to Insured Coverage Start Date Coverage End Date [employer] Medicare [place] [address] [place] [address] [id number] Candice Forde Self - patient is the insured Medical (General) History Medical History History ICD Code abdominal adhesion, calcific ation of spleen, diverticulosis, diverticulitis, hypertension, neuropathy, hyperlipidemia, Schatzki's ring, TMJ dysfunction Surgical History Surgery Date(Month/Year) hysterectomy, appendectomy, bilateral kn ee replacement
--- OUTSIDE RECORDS SUMMARY | 2025-06-11 14:12 | XMS_ITS | Patient Health Record ---
Author Organization [facility] Address [address] [place] [address] Care Team Providers Care Delivery Professional Name Role Phone ANDRE LOCO MD Primary Care Provider James ocampo Clayjanice Hiwot Unavailable [phone] Teresita Feliciano Unavailable [phone] Allergies Allergen (clinical drug ingredient) Drug/Non Drug Allergy documented on EMR Reaction Allergy Type Onset Date Status Anesthesia (uncoded) Unknown Allergy Active Narcotics (uncoded) Unknown Allergy Active Fluticasone Furoate Unknown Drug Allergy Active clotrimazole Clotrimazole Unknown Drug Allergy A ctive metoprolol Metoprolol Unknown Drug Allergy Activ e phentermine Phentermine Unknown Drug Allergy Act fadi vilanterol Vilanterol Unknown Drug Allergy Activ e Reason For Referral No Information Medications Medication SIG (Take, Route, Frequency, Duration) Notes Start Date End Date Status Celecoxib 200 MG Capsule TAKE 1 CAPSULE EVERY MORNING Oral; Duration: 90 Days Active Atenolol 50 MG Tablet TAKE 1 TABLET JAMEL Y Oral; Duration: 100 Days Active amLODIPine-Atorvastatin 10-20 MG Tablet TAKE 1 TABLET DAILY Oral; Duration: 90 Days Active buPROPion HCl ER (XL) 300 MG Tablet Extended Release 24 Hour 1 tablet every morning Oral Once a day Active LORazepam 1 MG Tablet TAKE 1 TABLET 3 TI MES A DAYAS NEEDED FOR ANXIETY Oral Active Vitamin F43-Nbszy Acid 500-400 MCG Tablet as directed Orally Act fadi Vitamin D 25 MCG (1000 UT) Tablet 1 tablet Orally Once a day A ctive Social History Tobacco Use: Social History Observation Description Date Details (start date - stop date) Never Smoker NA - NA Sex Assigned At : Social History Observation Description Sex Assigned At Female Social History Household: Social Info Question Answer Notes Household Marital status: Drug/Alcohol: Social Info Question Answer Notes Drugs Have you used drugs other than those for medical reasons in the past 12 months? No Benzodiazapines? No AUDIT-C (Standard) Did you have a drink containing alc ohol in the past year? No Points 0 Interpretation Negative Tobacco Use: Social Info Question Answer Notes Tobacco Control (Standard) Tobacco use: Nonsmoker Problems Problem Type SNOMED Code ICD Code Onset Dates Problem Status W/U Status Risk Notes Problem Generalized anxiety disorder (20992162) ROSALES (generalized anxiety disorder) (F41.1) Active confirmed Problem Moderate recurrent major depression (82688903) MDD (major depressive disorder), recurrent episode, moderate (F33.1) Active confirmed Vital Signs Blood pressure diastolic 75 mm Hg 05/06/2025 Weight-kg 63.96 kg 05/06/2025 Blood pressure systolic 121 mm Hg 05/06/2025 Weight 141 lbs 05/06/2025 Encounters Encounter [facility] Date [facility] [place] [address] [address] [facility] [address] [address] 05/06/2025 Hiwot Leiva ROSALES (generalized anxiety disorder) F41.1 and MDD (major depressive disorder), recurrent episode, moderate F33.[address] [address] 05/08/2025 Hi[place] Leiva [place] [address] [address] [facility] [address] [address] 05/06/2025 Hiwot Leiva Assessments Encounter Date Diagnosis (ICD Code) Assessment Notes Treatment Notes Treatment Clinical Notes Section Notes 05/06/2025 ROSALES (generalized anxiety disorder) (ICD-10 - F41.1) 05/06/2025 MDD (major depressive disorder), recurrent episode, moderate (ICD-10 - F33.1) 05/06/2025 Other Continue current medications per Dr Loco. Patient declines medication adjustment or further psychiatric services. Discussed she could benefit from medication adjustments, such as augmentation with Rexulti for anxiety, irritability. termite helper use of benzodiazepine could be concern for cognition, particularly given family history of dementia increases her risk for development. Recommend limiting use as possible. Could trial sleep aid such as trazodone to replace lorazepam given less risk of skilled nursing side effects, falls. Patient educated on all medications including potential benefits, side effects, risks. Educated on proper dosing schedule and importance of compliance. She is agreeable to counseling, will refer to therapy in office. -Assessment and treatment plan reviewed with patient. -Compliance with treatment plan importance discussed. -Discussed the risks/benefits of this medication -Discussed medication side effects. -Contact office if symptoms worsen. -Discussed that it can take up to 6-8 weeks to see full therapeutic effects of psychotropic medications. -Crisis prevention hotline 078. Plan Of Treatment Next Appt Details Provider Name:Teresita Feliciano , 07/01/2025 02:00:00 PM, [address] [facility] [address] [facility] [address], [place], [address], Insurance Providers Payer Name Payer Address Payer Phone Subscriber Number Group Number Insured Name Patient Relationship to Insured Coverage Start Date Coverage End Date A[employer] [address] [place] [address] [id number] Candice Forde Self - patient is the insured Medical (General) History Medical History History ICD Code Essential HTN Mixed HLD Surgical History Surgery Date(Month/Year) hysterectomy appendix taken out cateract
--- OUTSIDE RECORDS SUMMARY | 2025-06-11 14:12 | XMS_ITS | Clinical Summary ---
Author Organization [facility] Address [facility] [facility] [place] [address] Care Team Providers Care Roving Sizer Name Role Phone Unavailable Primary Care Provider Unavailabl e Source Comments [facility],non-owned Affiliates and Associated Physician Practices is amultiple site organization consisting of ambulatory clinics and hospital sitesin [place], [place], [place] and [place]. This disclosure is being madepursuant to the Care Everywhere program and may not contain all information available regarding this patient. Last updated 18.[facility] Allergies Active Allergy Reactions Criticality Noted Date [...] on file Legal Sex Female 4:20 AM MAT LINKER Gender Identity Not on file Sexual Orientation [...] yrs (1 - 1-dose 75+ series) 2016 DEPRESSION SCREENING 10/03/2024 COVID-19 VACCINE (1 - 2023-2 5 season) 2025 INFLUENZA VACCINE (#1) 2025 07/05/2013 BONE DENSITY TESTING Addressed 05/21/2013 [...]
== END 2025-06-11 12:52 | disposition home or self-care (01) ==
LOC: ANHAUDIO 12:51
PROVIDERS: PCP Family Medicine; Visit Provider Family Medicine
DX: H90.3 Sensorineural hearing loss, bilateral (principal); H93.8X1 Other specified disorders of right ear; Z91.09 Other allergy status, other than to drugs and biological substances
CPT/HCPCS: 92557; 92567

== ENCOUNTER 2025-08-14 10:26 | Outpatient (CLI) | payer MEDICARE, SELFPAY ==
--- OUTSIDE RECORDS SUMMARY | 2025-05-29 04:00 | XMS_ITS ---
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 Social History Sex Assigned At : Social History Observation Description Sex Assigned At Female Encounters Encounter Location Date Provider Diagnosis [facility] [employer] [place] [address] [address] 05/29/2025 Teresita Feliciano Plan Of Treatment No Information Progress Notes * Candice ROQUEDOB:[birth year] (84 yo F)Acc No.[id number]:05/29/2025 Patient: Bertha carney Candice Light Provider: Bill FELICIANO LCSW :1940 A ge:84 Y S ex:Female Date:05/29/2025 [facility] [facility] Pcp:ANDRE SAMANO MD Data: * Chief Complaints: * T herapy 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
--- OUTSIDE RECORDS SUMMARY | 2025-06-24 07:15 | XMS_ITS ---
Author Organization [facility] jose c Address [address] [facility] [address] [place] [address] Care Team Providers Care Splicer Helper Name Role Phone Beronica RAHMAN, Gabriela Primary Care Provider Unav ailable Radha Purdy Unavailable [phone] REASON FOR VISIT yd/3 month follow up/flc Encounters Encounter Location Date Provider Diagnosis [facility] [address] [facility] [address] [place] [address] 06/24/2025 Radha Purdy Plan Of Treatment No Information Progress Notes * Candice ROQUEDOB:1940 (84 yo F)Acc No.[id number]:06/24/2025 Progress Notes Patient: Candice GRIFFIN Appointment Provider: Radha PURDY MD :1940 A ge:84 Y S ex:Female Date:06/24/2025 [facility] [facility] Pcp:Gabriela Loco MD Subjective: * Chief Complaints: * 1 . Yd/3 month follow up/flc. * Medical History: Objective: * Vitals: Assessment: Plan: * Treatment: * Billing Information: * Visit Code: * Procedure Codes: * Electronic signature of Radha Purdy MD on 08/14/2025 at 11:44 AM MANAGER HOTEL Sign off status: Pending * Appointment Provider: Radha PURDY MD Date: 0 06/24/2025 Generated for Printi ng/Faxing/eTransmitting on: 1 10/14/2024 11:44 AM MANAGER HOTEL
--- OUTSIDE RECORDS SUMMARY | 2025-08-14 11:44 | XMS_ITS | Clinical Summary ---
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
--- OUTSIDE RECORDS SUMMARY | 2025-08-14 11:44 | XMS_ITS | Patient Health Record ---
Author Organization [facility] Address [address] [place] [address] Care Team Providers Care Furnace Maintenance Name Role Phone ANDRE LOCO MD Primary Care Provider Hiwot Bermeo Unavailable [phone] Teresita Feliciano Unavailable [phone] Allergies Allergen (clinical drug ingredient) Drug/Non Drug [...] Duration) Notes Start Date End Date Status Vitamin D 25 MCG (1000 UT) Tablet 1 tablet Orally Once a day A ctive Vitamin K94-Jlzfh Acid 500-400 MCG Tablet as directed Orally Act fadi Atenolol 50 MG Tablet TAKE 1 TABLET JAMEL Y Oral; Duration: 100 Days Active amLODIPine-Atorvastatin 10-20 MG Tablet TAKE 1 TABLET DAILY Oral; Duration: 90 Days Active buPROPion HCl ER (XL) 300 MG Tablet Extended Release 24 Hour 1 tablet every morning Oral Once a day Active Celecoxib 200 MG Capsule TAKE 1 CAPSULE EVERY MORNING Oral; Duration: 90 Days Active LORazepam 1 MG Tablet TAKE 1 TABLET 3 TI MES A DAYAS NEEDED FOR ANXIETY Oral Active Social History Tobacco Use: Social History [...] Status Risk Notes Problem Generalized anxiety disorder (30554057) ROSALES (generalized anxiety disorder) (F41.1) Active confirmed Problem Moderate recurrent major depression (22262002) MDD (major depressive disorder), recurrent episode, moderate (F33.1) Active confirmed Vital Signs Blood pressure diastolic 75 mm Hg 05/06/2025 Weight-kg 63.96 kg 05/06/2025 Blood pressure systolic 121 mm Hg 05/06/2025 Weight 141 lbs 05/06/2025 Encounters Encounter Location Date Provider Diagnosis [address] [address] 05/06/2025 Hiwot Leiva ROSALES (generalized anxiety disorder) F41.1 and MDD (major depressive disorder), recurrent episode, moderate F33.1 [facility] [address] [address] 07/01/2025 Teresita Jodie ROSALES (generalized anxiety disorder) F41.1 and MDD (major depressive disorder), recurrent episode, moderate F33.1 [facility] [address] [address] 05/08/2025 Hiwot Leiva [facility] [address] [address] 07/02/2025 Hiwot Leiva [facility] [address] [address] 07/03/2025 Hiwot Leiva [facility] [address] [address] 05/06/2025 Hiwot Leiva Assessments Encounter Date Diagnosis (ICD Code) Assessment Notes Treatment Notes Treatment Clinical Notes Section Notes 05/06/2025 ROSALES (generalized anxiety disorder) (ICD-10 - F41.1) 05/06/2025 MDD (major depressive disorder), recurrent episode, moderate (ICD-10 - F33.1) 07/01/2025 ROSALES (generalized anxiety disorder) (ICD-10 - F41.1) Client only wants to see a psychologist or psychaitrist for therapy 07/01/2025 MDD (major depressive disorder), recurrent episode, moderate (ICD-10 - F33.1) Client only wants to see a psychologist or psychaitrist for therapy 05/06/2025 Other Continue current medications per Dr Loco. Patient declines medication adjustment or further psychiatric services. Discussed she could benefit from medication adjustments, such as augmentation with Rexulti for anxiety, irritability. FDC use of benzodiazepine could be concern for cognition, particularly given family history of dementia increases her risk for development. Recommend limiting use as possible. Could trial sleep aid such as trazodone to replace lorazepam given less risk of prison side effects, falls. Patient educated on all [...] effects of psychotropic medications. -Crisis prevention hotline 988. Plan Of Treatment No Information Insurance Providers Payer Name Payer Address Payer Phone Subscriber Number Group Number Insured Name Patient Relationship to Insured Coverage Start Date Coverage End Date Aet[employer] [address] [place] [address] [id number] Dias Self - patient is the insured Medical (General) History Medical History History ICD Code Essential HTN Mixed HLD Surgical History Surgery Date(Month/Year) hysterectomy appendix taken out cateract
--- OUTSIDE RECORDS SUMMARY | 2025-08-14 11:44 | XMS_ITS | Clinical Summary ---
Author Organization [facility] Address [facility] [facility] [place] [address] Care Team Providers Care It Technical Architect Name Role Phone Unavailable Primary Care Provider Unavailabl e Source Comments [facility],non-owned Affiliates and Associated Physician Practices is amultiple site organization consisting of ambulatory clinics and hospital sitesin [place], [place] and [place]. This disclosure is being madepursuant to the Care Everywhere program and may not contain all information available regarding this patient. 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
--- OUTSIDE RECORDS SUMMARY | 2025-08-14 11:45 | XMS_ITS | Patient Health Record ---
Author Organization [facility] jose c Address [address] [facility] [address] [place] [address] Care Team Providers Care Mortgage Specialist Name Role Phone Gabriela Loco MD Primary Care Provider Unav Radha Owens Unavailable [phone] Allergies Allergen (clinical drug ingredient) Drug/Non Drug [...] fadi Results Component Value Reference Range Notes eGFR Reviewed date:03/25/2025 09:27:29 PM Interpretation: Performing Lab:[facility] , [facility]5 [facility]. [facility] [address] Notes/Report: eGFR 50 >=60 mL/min/1.73 m2 Interpretive [...] Current interpretive data was last reviewed 2021. [facility] BLD Reviewed date:09/12/2024 08:33:09 PM Interpretation: Performing Lab:[facility] , [address] [place] [address]. [facility] [address] Notes/Report: Keyword See Below AB2GP Beta 2 Gl ycoprotein 1 Antibodies, IgA, Serum Misc Result See Footnote Test Result Flag Unit RefValue Beta 2 GP1 Ab IgA, S <9.4 JERRY -- REFERENCE VALUE -- <15.0 (Negative) Test Performed by: [place] [address] Supervisor Rolling Room: Alejandro Maciel Ph.D.; CLIA# [id number] [facility] BLD Reviewed date:09/14/2024 02:05:02 PM Interpretation: Performing Lab:[facility] , [address] [place] [address] Notes/Report: Keyword See Below ACLIP Phospholi pid (Cardiolipin) Antibodies, IgA, Misc Result See Footnote Test Result Flag Unit RefValue Phospholipid Ab IgA, S <9.4 APL -- REFERENCE VALUE -- <15.0 (Negative) Test Performed by: [place] [address] Supervisor Rolling Room: Alejandro Maciel Ph.D.; CLIA# [id number] Cardio IgG IgM Reviewed date:09/11/2024 12:51:53 PM Interpretation: Performing Lab:[facility] , [address] [place] [address] Notes/Report: Current interpretive data was last revised on 2017. assay methods may not be used interchangeably. 2200 System. Cardiolipin IgM values obtained with different manufacturers' disease antibodies. These results were obtained with the [employer] cross-reactivity with Rheumatoid factor, dsDNA or certain [...] NI. These results were obtained with the [employer] 2200 System. Cardiolipin IgG values obtained with [...] Cardiolipin Ab, IgM 0.7 <=19.9 MPL U/mL Lupus Anticoagulant w/Reflex Reviewed date:09/12/2024 02:18:11 PM Interpretation: Performing Lab:[facility] , [address] [facility]. [facility] [address] Notes/Report: PT 10.8 9.7-13.0 sec Testing performed by: [facility], [address] [place] [address], [address] INR 1.00 0.90-1.20 Interpretive data Oral anticoagulant therapeutic ranges: Venous thromboembolism prophylaxis or treatment: 2.0-3.0 CARDIOLOGY Standard range: 2.0-3.0 High-intensity range: 2.5-3.5 Refer to indication-specific guidelines for appropriate target ranges for prosthetic heart valve replacement. Current interpretive data was last revised on 2019. Testing performed by: [facility], [address] [place]., [address] aPTT 30 28-38 sec Interpretive Data Heparin therapeutic range: 66.0 - 100.0 seconds. Range based on correlation with therapeutic heparin activity range of 0.3 - 0.7 Units/mL. Current interpretive data was last revised on 2023. Testing performed by: [facility], [address] [place] [address]., [address] DRVVT Screen Ratio 0.94 0.00-1.20 Ratio Testing performed by: [facility], [address] [place] [address]., [address] SCT Scr Ratio 1.03 0.00-1.16 Ratio Testing performed by: [address], [address] [place] Interpretation Negative Interpretive data Lupus anticoagulants [...] 1) Hermelinda V, Nelda A, Varsha JH, Oryao TL, Julien M, De Grofallon PG. Update of the guidelines for lupus anticoagulant detection. J Thromb Haemost. 2009; 7:5205-2565. 2. Shwetha Chappell. et al. International consensus statement on an update of the classification criteria for definite antiphospholipid syndrome (APS). J Thromb Haemost. 2006; 4:295-306. Current interpretive data was last revised on 2018 Testing performed by: [facility], [address] [facility]., [address] Histone ab Reviewed date:09/19/2024 04:56:52 PM Interpretation: Performing Lab:[facility] , [address] [facility] [place] [address] Notes/Report: Histone Ab <1.0 Value Explanation of Results ------ <1.0 Negative 1.0-1.5 Weak Positive 1.6-2.5 Moderate Positive >2.5 Strong Positive Test Performed at: [facility] [address] [place] [address] ANKUSH Elton NORRIS Hep C AB Reviewed date:09/10/2024 05:08:11 PM Interpretation: Performing Lab:[facility] , [address] [facility] [place] [address] Notes/Report: Hepatitis C Antibody Nonreactive Nonreactive Interpretive [...] AG Reviewed date:09/10/2024 05:08:11 PM Interpretation: Performing Lab:[facility] , [facility] [facility] [place] [address] Notes/Report: Hepatitis B Surface Antigen Nonreactive Nonreactive G6PD Ql Reviewed date:09/11/2024 08:03:46 AM Interpretation: Performing Lab:[facility] , [address] [facility]. [place] [address] Notes/Report: G6PD, Qual Normal Normal Interp data: G6PD activity should be interpreted in the context of a patient's hematocrit. Hematocrit < 20% may lead to a falsely deficient result, while hematocrit > 50% may lead to a falsely normal result. Current interpretive data was last revised on 2020. Testing performed by: [facility], [address] [facility] [place]., [address] Creatine Kinase Reviewed date:09/10/2024 05:08:11 PM Interpretation: Performing Lab:[facility] , [address] [facility]. [place] [address] Notes/Report: Total CK 57 30-200 Units/L Comprehensive metabolic pane l (CMP) Reviewed date:09/10/2024 05:08:11 PM Interpretation: Performing Lab:[facility] , [address] [facility] [place] [address] Notes/Report: Sodium 143 135-145 mmol/L Plasma Potassium [...] C4 Reviewed date:09/10/2024 05:08:11 PM Interpretation: Performing Lab:[facility] , [address] [place] [address]. [facility] [address] Notes/Report: Complement, C4 32 10-40 mg/dL Complement C3 Reviewed date:09/10/2024 05:08:11 PM Interpretation: Performing Lab:[facility] , [address] [place] [address]. [facility] [address] Notes/Report: Complement, C3 154 90-180 mg/dL CBC w auto diff Reviewed date:09/10/2024 05:08:11 PM Interpretation: Performing Lab:[facility] , [address] [place] [address]. [facility] [address] Notes/Report: WBC 8.0 3.8-9.9 K/cumm Hgb 14.1 11.9-15.5 g/dL Hct 41.9 35.6-45.5 % Platelet Ct 251 150-400 K/cumm MPV 10.8 9.1-12.3 fL RBC 4.47 3.90-5.20 M/cumm MCV 93.7 81.3-96.4 fL MCH 31.5 27.1-33.3 pg MCHC 33.7 32.3-35.7 g/dL RDW CV 11.9 11.1-14.9 % RDW SD 41.0 35.7-48.1 fL NRBC Abs Auto 0.00 0.00-0.01 K/cumm C Reactive Protein Reviewed date:09/10/2024 05:08:10 PM Interpretation: Performing Lab:[facility] , [address] [place] [address]. [facility] [address] Notes/Report: C-Reactive Protein <3.0 <=10.0 mg/L Beta 2 Glycoprotein Ab IgG, IgM Reviewed date:09/11/2024 12:51:54 PM Interpretation: Performing Lab:[facility] , [address] [place] [address]. [facility] [address] Notes/Report: B2GPI IgG <1.4 <=19.9 units/mL Interpretive Data Negative: <20 U/mL Positive: > or = 20 U/mL Beta-2 glycoprotein 1 (Beta-2 GP1) antibodies are a more specific marker of thrombotic risk. It is expected that some samples will be ACL positive and Beta-2 [id number]. In order to improve specificity, the International Congress on Antiphospholipid Antibodies recommends Beta-2 GP1 antibodies of IgG or IgM isotype (> the 99th percentile), obtained twice, at least 12 weeks apart, to support a diagnosis of antiphospholipid syndrome. The cutoff for this assay was developed from data based on the 99th percentile. These results were obtained with the [employer] 2200 System. Beta 2GP1 IgG values obtained [...] factor. These results were obtained with the [employer] 2200 System. Beta-2 GP1 IgM values obtained with different manufacturers' assay methods may not be used interchangeably. Current interpretive data was last revised on 2017. Anti-CCP (Cyclic Citrullinat ed Peptide Ab) Reviewed date:09/11/2024 12:51:53 PM Interpretation: Performing Lab:[facility] , [facility]5 [facility]. [place] [address] Notes/Report: CCP Ab <0.5 <=2.9 units/mL Interpretive data Negative: <3 units/mL Positive: > or equal to 3 units/mL Current interpretive data was last revised on 2017. eGFR Reviewed date:09/10/2024 05:08:10 PM Interpretation: Performing Lab:[facility] , [address] [place] [address]. [place] [address] Notes/Report: eGFR 79 >=60 mL/min/1.73 m2 Interpretive [...] Current interpretive data was last reviewed 2021. Differential Automated Reviewed date:09/10/2024 05:08:10 PM Interpretation: Performing Lab:[facility] , [address] [facility]. [place] [address] Notes/Report: Neut Abs 4.8 1.5-6.5 K/cumm ImmGran Abs 0.0 0.0-0.1 K/cumm Lymphocyte Abs 2.5 0.8-3.3 K/cumm Turner Abs 0.6 0.2-0.8 K/cumm Eos Abs 0.1 [...] Interpretive Data was last revised on 2018. Turner Pct 7.3 Interpretive Data Percent cell count [...] Interpretive Data was last revised on 2018. RONY reflex titer pattern MARCY + dsDNA Reviewed date:09/17/2024 11:06:30 AM Interpretation: Performing Lab:[facility] , [address] [facility]. [place] [address] Notes/Report: RONY, Qual Negative Interpretive Data Normal [...] last revised on 2020. Testing performed by: [facility], [address] [place]., [address] Comprehensive metabolic pane l (CMP) Reviewed date:03/25/2025 09:27:29 PM Interpretation: Performing Lab:[facility] , [address] [place] [address]. [facility] [address] Notes/Report: Sodium 141 135-145 mmol/L Plasma Potassium [...] 03/25/2025 Encounters Encounter Location Date Provider Diagnosis [facility] [address] [facility] [address], [place] [address] 09/10/2024 Radha Juno Pain in unspecified joint M25.50 ; RONY positive R76.8 and Other low back pain M54.59 [facility] [address] [facility] [address], [place] [address] 09/24/2024 Radha Du Sjogren's syndrome w ith keratoconjunctivitis sicca M35.01 ; 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 and Decreased GFR R94.4 [facility] [address] [facility] [address], [place] [address] 11/13/2024 Radha Du Sjogren's syndrome w ith keratoconjunctivitis sicca M35.01 ; 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 ; Decreased GFR R94.4 and Chronic constipation K59.09 [facility] [address] [facility] [address] [place] [address] 03/25/2025 Radha Du Sjogren's syndrome w ith keratoconjunctivitis sicca M35.01 ; 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 ; Decreased GFR R94.4 and Chronic constipation K59.09 [facility] [address] [facility] [address] [address], [place] [address] 09/24/2024 Radha Du [facility] [address] [facility] [address], [place] [address] 11/08/2024 Radha Juno [facility] [address] [facility] [address] [address], [place] [address] 12/24/2024 Radha Du [facility] [address], [place] [address] 03/25/2025 Radha Du [facility] [address] [facility] [address], [place] [address] 04/16/2025 Radha Du Sjogren's syndrome w ith keratoconjunctivitis sicca M35.01 [facility] [address] [facility] [address], [place] [address] 04/16/2025 Radha Du Assessments Encounter Date Diagnosis [...] End Date [employer] Medicare Hmo [address] [place] [address] [id number] Candice Forde Self - patient is the insured Medical (General) History Medical History History ICD Code abdominal adhesion, calcific ation of spleen, diverticulosis, diverticulitis, hypertension, neuropathy, hyperlipidemia, Schatzki's ring, TMJ dysfunction Surgical History Surgery Date(Month/Year) hysterectomy, appendectomy, bilateral kn ee replacement
[2025-08-14 13:14] LABS: Hematocrit 41.3 % (37.0-47.0); Hemoglobin 13.8 g/dL (12.0-15.0); Immature Granulocyte Percent A 0.2 % (0-0.5); Lymphocytes Absolute Auto 2.60 K/mm3 (0.9-3.2); Mean Corpuscular HGB Conc 33.4 g/dl (32-36); Mean Corpuscular Hemoglobin 31.2 pg (26-34); Mean Corpuscular Volume 93.4 fl (80-100); Nucleated Red Blood Cells Absolute Auto 0.000 K/mm3 (0.0-0.012); Nucleated Red Blood Cells Perc 0.0 % (0.0-0.2); Platelet Count Result 271 k/mm3 (150-375); Red Blood Count 4.42 M/mm3 (4.2-5.4); White Blood Count 9.1 K/mm3 (4.5-10.0)
[2025-08-14 13:20] LABS: Alanine Aminotransferase 18 U/L (6-35); Albumin Level 4.5 g/dL (3.5-5.1); Alkaline Phosphatase 95 U/L (38-126); Anion Gap 9 mmol/L (4-12); Aspartate Amino Transferase 46 U/L (14-36); Bilirubin,Total 0.7 mg/dL (0.2-1.3); Blood Urea Nitrogen 19 mg/dL (7-17); Calcium 9.4 mg/dL (8.4-10.2); Carbon Dioxide 26 mmol/L (22-30); Chloride 105 mmol/L (98-107); Cholesterol 171 mg/dL (0-200); Estimated Glomerular Filt Rate > 60; Glucose 89 mg/dL (65-110); HDL Direct 73 mg/dL; Potassium 4.0 mmol/L (3.4-5.0); Sodium 140 mmol/L (137-145); Total Protein 8.0 g/dL (6.3-8.2); Triglycerides 113 mg/dL (<150)
[2025-08-14 13:57] LABS: Thyroid Stimulating Hormone 2.580 uIU/mL (0.465-4.680)
[2025-08-14 14:18] LABS: Vitamin B12 > 1000.0 pg/mL (239-931)
== END 2025-08-14 10:27 | disposition home or self-care (01) ==
PROVIDERS: PCP Family Medicine; Visit Provider Family Medicine
DX: E53.8 Deficiency of other specified B group vitamins (principal); E78.2 Mixed hyperlipidemia; R53.83 Other fatigue; N28.9 Disorder of kidney and ureter, unspecified; R55 Syncope and collapse; Z78.0 Asymptomatic menopausal state
CPT/HCPCS: 36415; 80053; 80061; 82607; 84443; 85025

== ENCOUNTER 2025-08-30 08:44 | Emergency (ER) | payer MEDICARE, SELFPAY ==
--- OUTSIDE RECORDS SUMMARY | 2025-05-29 04:00 | XMS_ITS ---
Author Organization [facility] [employer] Address [facility] [address] Care Team Providers Care Track Equipment Operator Name Role Phone JAZMYNE RAHMAN, ANDRE Primary Care Provider Unav ailable Hiwot Leiva Unavailable [phone] Teresita Feliciano Unavailable [phone] REASON FOR VISIT Therapy PAROLE DIRECTOR Social History Sex Assigned At : Social History Observation Description Sex Assigned At Female Encounters Encounter Location Date Provider Diagnosis [facility] [employer] [place] [address] [address] 05/29/2025 Teresita Feliciano Plan Of Treatment No Information Progress Notes * Candice ROQUEDOB:[birth year] (85 yo F)Acc No.[id number]:05/29/2025 Patient: Bertha carney Candice Light Provider: Bill FELICIANO LCSW :1940 A ge:84 Y S ex:Female Date:05/29/2025 [facility] [facility] Pcp:ANDRE SAMANO MD Data: * Chief Complaints: * T herapy PAROLE DIRECTOR * Electronic signature of Albertina Feliciano LCSW on 08/30/2025 at 09:25 AM EXCHANGE ADMINISTRATOR Sign off status: Pending Signatures: No Ad Hoc Signature Added * Provider: Bill FELICIANO LCSW Date: 0 05/29/2025 Generated for Gunner michaels/Yesy/eTransmitting on: 1 10/30/2024 09:25 AM EXCHANGE ADMINISTRATOR
--- OUTSIDE RECORDS SUMMARY | 2025-06-24 07:15 | XMS_ITS ---
Author Organization [facility] jose c Address [address] [facility] [address] [place] [address] Care Team Providers Care Rigging Engineer Name Role Phone Beronica RAHMAN, Gabriela Primary Care Provider Unav ailable Radha Purdy Unavailable [phone] REASON FOR VISIT yd/3 month follow up/flc Encounters Encounter Location Date Provider Diagnosis [facility] [address] [facility] [address] [place] [address] 06/24/2025 Radha Purdy Plan Of Treatment No Information Progress Notes * Candice ROQUEDOB:1940 (85 yo F)Acc No.[id number]:06/24/2025 Progress Notes Patient: Candice GRIFFIN Appointment Provider: Radha PURDY MD :1940 A ge:84 Y S ex:Female Date:06/24/2025 [facility] [facility] Pcp:Gabriela Loco MD Subjective: * Chief Complaints: * 1 . Yd/3 month follow up/flc. * Medical History: Objective: * Vitals: Assessment: Plan: * Treatment: * Billing Information: * Visit Code: * Procedure Codes: * Electronic signature of Radha Purdy MD on 08/30/2025 at 09:24 AM RESTAURANT LEAD Sign off status: Pending * Appointment Provider: Radha PURDY MD Date: 0 06/24/2025 Generated for Printi ng/Faxing/eTransmitting on: 1 10/30/2024 09:24 AM RESTAURANT LEAD
--- NOTE | ~2025-08-30 | XR_ITS ---
EXAMINATION: XR shoulder LT min 2V, 08/30/2025 9:28 INFORMATION OFFICER HISTORY: L shoulder injury COMPARISON: No comparisons available. Findings: No acute fracture or malalignment. Moderate to severe degenerative changes Soft tissues unremarkable. Impression: No acute fracture or malalignment. Reviewed, dictated and finalized at location P. RMATION OFFICER Impression: No acute fracture or malalignment.
--- NOTE | ~2025-08-30 | CT_ITS ---
CT HEAD NON-CONTRAST CT C-SPINE Clinical History: fell last night, hit head Comparison: None Technique: Unenhanced axial images skull base to vertex. Coronal, sagittal reformats. Axial images thoracic inlet to skull base. Sagittal and coronal reformats. CT images acquired with automatic exposure control for dose reduction DLP: 530 mGy-cm Findings: Head: Age-related atrophy. Chronic white matter microvascular ischemic changes. Sulci, ventricles: Unremarkable. No intracerebral hemorrhage. No evidence acute territorial infarct. No mass effect, midline shift, intra-/extra-axial fluid collection. Bony calvarium intact. Visualized paranasal sinuses: Clear. Mastoid air cells: Clear. C-spine: No acute fracture. Grade 1 anterolisthesis of C2 on 3, C3 on 4. Moderate multilevel degenerative changes and disc disease. Prevertebral soft tissues within normal limits. Visualized lung apices: Clear. Visualized thyroid: Unremarkable. No enlarged cervical nodes. IMPRESSION: HEAD: 1. No acute intracranial findings. C-SPINE: 1. No acute fracture. Reviewed, dictated and finalized at location R. ICATIONS INSPECTOR IMPRESSION: HEAD: 1. No acute intracranial findings. C-SPINE: 1. No acute fracture.
[2025-08-30 08:51] VITALS: BP 129/63; PULSE 84; RESP 18; TEMP 36.1; O2SAT 100
--- NOTE | 2025-08-30 09:19 | ED_ITS ---
HPI - Fall General Chief Complaint: Fall Stated Complaint: fall yesterday Time Seen by Provider: 08/30/25 08:56 History of Present Illness HPI Narrative: Patient is an 85-year-old female who presents to the ER after sustaining a fall last night. She reports she hit the left frontal portion of her forehead on the floor. Patient denies any loss of consciousness. She reports her primary care provider advised her to come to the ER for further evaluation as she has had more falls recently. Patient denies any headache, neck pain, nausea/vomiting, or visual changes. She also endorses left shoulder pain due to having to pull myself up after I fall and overuse it.Patient endorses a history of high blood pressure, and heart issues. Related Data Allergies Allergy/AdvReac Type Severity Reaction Status Date / Time metoprolol Allergy Severe MOUTH-Itching, Verified 08/30/25 08:55 SWELLING vilanterol (From Breo Allergy Severe throat Verified 08/30/25 08:55 Ellipta) swelling clotrimazole Allergy Mild MOUTH Verified 08/30/25 08:55 Itching, SWELLING fluticasone furoate (From Allergy Unknown throat Verified 08/30/25 08:55 Breo Ellipta) swelling phentermine (From Suprenza) Allergy MOUTH Verified 08/30/25 08:55 ITCHING, SWELLING anesthesia AdvReac Mild Nausea and Uncoded 08/16/25 17:05 Vomiting Narcotics AdvReac Unknown Vomiting Uncoded 08/16/25 17:05 Review of Systems Review of Systems: All systems reviewed & are unremarkable except as noted in HPI and below PMFSH Past Medical History Medical History Nausea after anesthesia PONV (postoperative nausea and vomiting) Mucous cyst of toe Hallux valgus Hammertoes of both feet Schatzki's ring External hemorrhoids Dysphagia egd 09.14.22: schatzki's ring/ dilated Thrombosed external hemorrhoid Calcification of spleen ct 06.14.22: 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 Irritant dermatitis Overweight (BMI 25.0-29.9) Light-headed feeling Parotid gland fullness Diverticulosis Abdominal adhesions Essential hypertension Hereditary and idiopathic neuropathy, unspecified Other hammer toe(s) (acquired), unspecified foot Bronchitis Diverticulitis Lumbago with sciatica, unspecified side Mixed hyperlipidemia TMJ dysfunction Surgical History Surgical History History of appendectomy H/O total hysterectomy History of bilateral knee replacement Family History Family History Father Depression Family history of suicide Mother Hypertension Family history of cardiovascular disease Other Family history of Alzheimer's disease Social History Social History Smoking status: Never smoker Second hand tobacco smoke exposure: No Alcohol intake: never Substance use: never Substance use type: does not use Lack of Transportation: No Lack of Food: Never True Current Housing: I Have Housing Concerned About Future Housing: No Difficulty Paying Gas/Electric Bills: No Difficulty Paying for Meds: No Currently Unemployed: No Education: Master's Degree or Higher Difficulty w/ Childcare or Family Care: No Living arrangements: alone Gender identity (if verbalized by the patient): Female Sexual Orientation (if Verbalized by the Patient): Straight or Heterosexual Spiritual care concerns: No Exam Narrative: GENERAL: Well appearing, well-nourished, non-toxic, in no acute distress. HEAD: Normocephalic, atraumatic. NECK: Supple. No adenopathy, no masses. RESPIRATORY: Airway patent, respirations nonlabored. Clear to auscultation bilaterally, no rales, rhonchi, wheezing. CARDIOVASCULAR: Regular rate and rhythm without murmurs, rubs, or gallops. Peripheral pulses 2+ and equal bilaterally. ABDOMINAL: Soft, nontender, nondistended, no hepatosplenomegaly. Normoactive BS. MUSCULOSKELETAL: Moves all extremities. Strength/ROM intact without gross deformities. No pain with palpation to cervical spine or lumbar spine SKIN: Warm, dry, normal color. No rashes. Rug burn to left forehead NEURO: A&O X3. Speech clear. Cranial nerves II-XII intact. No ataxic movements. PSYCHIATRIC: Appropriate mood and affect. Normal interaction. Course Vital Signs Vital signs: Vital Signs Temperature 36.1 C L 08/30/25 08:51 Pulse Rate 84 08/30/25 08:51 Respiratory Rate 18 08/30/25 08:51 Blood Pressure 129/63 08/30/25 08:51 Pulse Oximetry 100 08/30/25 08:51 Oxygen Delivery Room Air 08/30/25 08:51 Temperature 36.1 C L 08/30/25 08:51 Pulse Rate 84 08/30/25 08:51 Respiratory Rate 18 08/30/25 08:51 Blood Pressure 129/63 08/30/25 08:51 Pulse Oximetry 100 08/30/25 08:51 Oxygen Delivery Room Air 08/30/25 08:51 MDM - Fall MDM Narrative Medical decision making narrative: Patient is an 85-year-old female who presents to the ER after sustaining a fall last night. She reports she hit the left frontal portion of her forehead on the floor. Patient denies any loss of consciousness. She reports her primary care provider advised her to come to the ER for further evaluation as she has had more falls recently. Patient denies any headache, neck pain, nausea/vomiting, or visual changes. She also endorses left shoulder pain due to having to pull myself up after I fall and overuse it.Patient endorses a history of high blood pressure, and heart issues. Labs Ordered: None necessary Imaging Ordered: CT cervical spine, CT brain, left shoulder x-ray Medications Ordered: Patient declined pain medication Results: Pt's CT scan indicates Head: Age-related atrophy. Chronic white matter microvascular ischemic changes. Sulci, ventricles: Unremarkable. No intracerebral hemorrhage. No evidence acute territorial infarct. No mass effect, midline shift, intra-/extra-axial fluid collection. Bony calvarium intact. Visualized paranasal sinuses: Clear. Mastoid air cells: Clear. C-spine: No acute fracture. Grade 1 anterolisthesis of C2 on 3, C3 on 4. Moderate multilevel degenerative changes and disc disease. Prevertebral soft tissues within normal limits. Visualized lung apices: Clear. Visualized thyroid: Unremarkable. No enlarged cervical nodes. Diagnosis: Encounter after mechanical fall, concussion Patient Education/Shared MDM: Results of imaging shared with patient and her son. She continues to denies any for pain medication administration. Patient strongly advised to maintain hydration status upon discharge and follow-up with her PCP as soon as possible for further evaluation and treatment. She will not be discharged home with any new prescriptions. Strict return precautions provided. Patient verbalized understanding and is in agreement with plan. Vital signs stable at time of discharge. All questions answered. Differential Diagnosis Differential diagnosis: Likely dislocation of shoulder region, compression fracture and concussion without loss of consciousness Imaging Data Attestation: I personally reviewed and interpreted this imaging study as follows: Radiologist's impression: Impressions Cervical Spine CT 08/30/25 09:39 IMPRESSION: HEAD: 1. No acute intracranial findings. C-SPINE: 1. No acute fracture. Head CT 08/30/25 09:39 IMPRESSION: HEAD: 1. No acute intracranial findings. C-SPINE: 1. No acute fracture. Shoulder X-Ray 08/30/25 09:42 Impression: No acute fracture or malalignment. Discharge Plan Discharge Clinical Impression: Fall, Left shoulder strain, Concussion without loss of consciousness Patient Disposition: Home Condition: Stable Instructions: Antibiotic Form, Fall Prevention for Older Adults (ED) Additional Instructions: Please return to the ER with any worsening symptoms. Follow-up with primary care provider as soon as possible for further evaluation and treatment. Take all medications as prescribed, including regularly scheduled medications. Patient Language: Tongan Prescriptions: No Action atenolol 50 mg tablet 50 mg PO DAILY Qty: 180 2RF lorazepam 1 mg tablet 1 mg PO TID PRN (Reason: anxiety) Qty: 90 4RF tramadol 50 mg tablet 50 mg PO Q6H PRN (Reason: pain) 30 Days Qty: 30 2RF amlodipine-atorvastatin 10-20 mg tablet 1 tablet PO DAILY Qty: 90 1RF bupropion HCl 300 mg tablet extended release 24 hr 300 mg PO QAM Qty: 90 1RF Follow-up/Referrals: Gabriela Loco MD [Primary Care Provider, [facility]] Time of Disposition: 10:29
--- OUTSIDE RECORDS SUMMARY | 2025-08-30 09:24 | XMS_ITS | Clinical Summary ---
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
--- OUTSIDE RECORDS SUMMARY | 2025-08-30 09:24 | XMS_ITS | Clinical Summary ---
Author Organization [facility] Address [facility] [place] [address] Care Team Providers Care Compo Conveyor Operator Name Role Phone Unavailable Primary Care Provider Unavailabl e Source Comments [facility],non-owned Affiliates and Associated Physician Practices is amultiple site organization consisting of ambulatory clinics and hospital sitesin [place], [place], [place] and [place]. This disclosure is being madepursuant to the Care Everywhere program and may not contain all information available regarding this patient. 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
--- OUTSIDE RECORDS SUMMARY | 2025-08-30 09:25 | XMS_ITS | Patient Health Record ---
Author Organization [facility] Address [address] [place] [address] Care Team Providers Care Filter Plant Supervisor Name Role Phone ANDRE LOCO MD Primary Care Provider Hiwot Bermeo Unavailable [phone] Teresita Feliciano Unavailable [phone] Allergies Allergen (clinical drug ingredient) Drug/Non Drug [...] Orally Once a day A ctive Vitamin A13-Adfnt Acid 500-400 MCG Tablet as directed Orally [...] Status Risk Notes Problem Generalized anxiety disorder (06615340) ROSALES (generalized anxiety disorder) (F41.1) Active confirmed Problem Moderate recurrent major depression (94445385) MDD (major depressive disorder), recurrent episode, moderate (F33.1) Active confirmed Vital Signs Blood pressure diastolic 75 mm Hg 05/06/2025 Weight-kg 63.96 kg 05/06/2025 Blood pressure systolic 121 mm Hg 05/06/2025 Weight 141 lbs 05/06/2025 Encounters Encounter Location Date Provider Diagnosis [address] [address] 05/06/2025 Hiwot Leiva ROSALES (generalized anxiety disorder) F41.1 and MDD (major depressive disorder), recurrent episode, moderate F33.1 [id number] [address] 07/01/2025 Teresita Jodie ROSALES (generalized anxiety disorder) F41.1 and MDD (major depressive disorder), recurrent episode, moderate F33.1 [facility] [id number] [address] 05/08/2025 Hiwot Leiva [id number] [address] 07/02/2025 Hiwot Leiva [facility] [id number] [address] 07/03/2025 Hiwot Leiva [id number] [address] 05/06/2025 Hiwot Leiva Assessments Encounter Date Diagnosis [...] as augmentation with Rexulti for anxiety, irritability. residential use of benzodiazepine could be concern for cognition, particularly given family history of dementia increases her risk for development. Recommend limiting use as possible. Could trial sleep aid such as trazodone to replace lorazepam given less risk of alf side effects, falls. Patient educated on all [...] Start Date Coverage End Date [employer] [address] [place] [address] [id number] Dias Self - patient is the insured Medical (General) History Medical History History ICD Code Essential HTN Mixed HLD Surgical History Surgery Date(Month/Year) hysterectomy appendix taken out cateract
--- OUTSIDE RECORDS SUMMARY | 2025-08-30 09:25 | XMS_ITS | Patient Health Record ---
Author Organization [facility] jose c Address [address] [place] [address] Care Team Providers Care Decision Support Analyst Name Role Phone Gabriela Loco MD Primary Care Provider Unav Radha Owens Unavailable [phone] Allergies Allergen (clinical drug ingredient) Drug/Non Drug [...] eGFR Reviewed date:03/25/2025 09:27:29 PM Interpretation: Performing Lab:[facility] , [facility]. [facility] [address] Notes/Report: eGFR 50 >=60 mL/min/1.73 m2 Interpretive [...] Current interpretive data was last reviewed 2021. eGFR Reviewed date:09/10/2024 05:08:10 PM Interpretation: Performing Lab:[facility] , [address] [place] [address]. [place] [address] Notes/Report: eGFR 79 >=60 mL/min/1.73 m2 Interpretive [...] Automated Reviewed date:09/10/2024 05:08:10 PM Interpretation: Performing Lab:[facility] , [address] [place] [address]. [place] [address] Notes/Report: Neut Abs 4.8 1.5-6.5 K/cumm ImmGran Abs 0.0 0.0-0.1 K/cumm Lymphocyte Abs 2.5 0.8-3.3 K/cumm Gonzales Abs 0.6 0.2-0.8 K/cumm Eos Abs 0.1 [...] Interpretive Data was last revised on 2018. Gonzales Pct 7.3 Interpretive Data Percent cell count [...] Interpretive Data was last revised on 2018. Comprehensive metabolic pane l (CMP) Reviewed date:03/25/2025 09:27:29 PM Interpretation: Performing Lab:[facility] , [address] [place] [address]. [facility] [address] Notes/Report: Sodium 141 135-145 mmol/L Plasma Potassium [...] 22 7-45 Units/L AST 25 10-45 Units/L Lupus Anticoagulant w/Reflex Reviewed date:09/12/2024 02:18:11 PM Interpretation: Performing Lab:[facility] , [address] [place] [address]. [facility] [address] Notes/Report: PT 10.8 9.7-13.0 sec Testing performed by: [facility], [address] [place]., [address] INR 1.00 0.90-1.20 Interpretive data Oral anticoagulant therapeutic ranges: Venous thromboembolism prophylaxis or treatment: 2.0-3.0 CARDIOLOGY Standard range: 2.0-3.0 High-intensity range: 2.5-3.5 Refer to indication-specific guidelines for appropriate target ranges for prosthetic heart valve replacement. Current interpretive data was last revised on 2019. Testing performed by: [facility], [address] [place]., [address] aPTT 30 28-38 sec Interpretive Data Heparin therapeutic range: 66.0 - 100.0 seconds. Range based on correlation with therapeutic heparin activity range of 0.3 - 0.7 Units/mL. Current interpretive data was last revised on 2023. Testing performed by: [facility], [address] [place]., [address] DRVVT Screen Ratio 0.94 0.00-1.20 Ratio Testing performed by: [facility], [address] [place]., [address] SCT Scr Ratio 1.03 0.00-1.16 Ratio Testing performed by: [address], [address] [place] Interpretation Negative Interpretive data Lupus anticoagulants [...] and one activates the common pathway (dilute Gutsavo's viper venom time - dRVVT). Each method [...] heparin. References: 1) Hermelinda V, Nelda A, [place] JH, Orellynl TL, Julien M, De Grofallon PG. Update of the guidelines for lupus anticoagulant detection. J Thromb Haemost. 2009; 7:3171-3685. 2. Shwetha Chappell. et al. International consensus statement on an update of the classification criteria for definite antiphospholipid syndrome (APS). J Thromb Haemost. 2006; 4:295-306. Current interpretive data was last revised on 2018 Testing performed by: [facility], [address] [place]., [address] Histone ab Reviewed date:09/19/2024 04:56:52 PM Interpretation: Performing Lab:[facility] , [facility]. [place] [address] Notes/Report: Histone Ab <1.0 Value Explanation of Results ------ <1.0 Negative 1.0-1.5 Weak Positive 1.6-2.5 Moderate Positive >2.5 Strong Positive Test Performed at: [facility] [address] [place] [address] ANKUSH NORRIS Hep C AB Reviewed date:09/10/2024 05:08:11 PM Interpretation: Performing Lab:[facility] , [facility]. [place] [address] Notes/Report: Hepatitis C Antibody Nonreactive Nonreactive Interpretive [...] AG Reviewed date:09/10/2024 05:08:11 PM Interpretation: Performing Lab:[facility] , [facility]5 [facility]. [place] [address] Notes/Report: Hepatitis B Surface Antigen Nonreactive Nonreactive G6PD Ql Reviewed date:09/11/2024 08:03:46 AM Interpretation: Performing Lab:[facility] , [facility]. [place] [address] Notes/Report: G6PD, Qual Normal Normal Interp data: G6PD activity should be interpreted in the context of a patient's hematocrit. Hematocrit < 20% may lead to a falsely deficient result, while hematocrit > 50% may lead to a falsely normal result. Current interpretive data was last revised on 2020. Testing performed by: [facility], [address] [place] [address] Creatine Kinase Reviewed date:09/10/2024 05:08:11 PM Interpretation: Performing Lab:[facility] , [facility]. [place] [address] Notes/Report: Total CK 57 30-200 Units/L Comprehensive metabolic pane l (CMP) Reviewed date:09/10/2024 05:08:11 PM Interpretation: Performing Lab:[facility] , [facility]. [place] [address] Notes/Report: Sodium 143 135-145 mmol/L Plasma Potassium [...] C4 Reviewed date:09/10/2024 05:08:11 PM Interpretation: Performing Lab:[facility] , [address] [place] [address]. [facility] [address] Notes/Report: Complement, C4 32 10-40 mg/dL Complement C3 Reviewed date:09/10/2024 05:08:11 PM Interpretation: Performing Lab:[facility] , [address] [place] [address]. [facility] [address] Notes/Report: Complement, C3 154 90-180 mg/dL CBC w auto diff Reviewed date:09/10/2024 05:08:11 PM Interpretation: Performing Lab:[facility] , [address] [place] [address]. [facility] [address] Notes/Report: WBC 8.0 3.8-9.9 K/cumm Hgb 14.1 11.9-15.5 g/dL Hct 41.9 35.6-45.5 % Platelet Ct 251 150-400 K/cumm MPV 10.8 9.1-12.3 fL RBC 4.47 3.90-5.20 M/cumm MCV 93.7 81.3-96.4 fL MCH 31.5 27.1-33.3 pg MCHC 33.7 32.3-35.7 g/dL RDW CV 11.9 11.1-14.9 % RDW SD 41.0 35.7-48.1 fL NRBC Abs Auto 0.00 0.00-0.01 K/cumm C Reactive Protein Reviewed date:09/10/2024 05:08:10 PM Interpretation: Performing Lab:[facility] , [address] [place] [address]. [facility] [address] Notes/Report: C-Reactive Protein <3.0 <=10.0 mg/L Beta 2 Glycoprotein Ab IgG, IgM Reviewed date:09/11/2024 12:51:54 PM Interpretation: Performing Lab:[facility] , [address] [place] [address]. [facility] [address] Notes/Report: B2GPI IgG <1.4 <=19.9 units/mL Interpretive Data Negative: <20 U/mL Positive: > or = 20 U/mL Beta-2 glycoprotein 1 (Beta-2 GP1) antibodies are a more specific marker of thrombotic risk. It is expected that some samples will be ACL positive and Beta-2 [id number]. In order to improve specificity, the International Congress on Antiphospholipid Antibodies recommends Beta-2 GP1 antibodies of IgG or IgM isotype (> the 99th percentile), obtained twice, at least 12 weeks apart, to support a diagnosis of antiphospholipid syndrome. The cutoff for this assay was developed from data based on the 99th percentile. These results were obtained with the [employer] 2200 System. Beta 2GP1 IgG values obtained [...] factor. These results were obtained with the DevonWay0 System. Beta-2 GP1 IgM values obtained with different manufacturers' assay methods may not be used interchangeably. Current interpretive data was last revised on 2017. Anti-CCP (Cyclic Citrullinat ed Peptide Ab) Reviewed date:09/11/2024 12:51:53 PM Interpretation: Performing Lab:[facility] , [address] [place] [address]. [facility] [address] Notes/Report: CCP Ab <0.5 <=2.9 units/mL Interpretive data Negative: <3 units/mL Positive: > or equal to 3 units/mL Current interpretive data was last revised on 2017. [facility] Reviewed date:09/12/2024 08:33:09 PM Interpretation: Performing Lab:[facility] , [address] [place] [address]. [facility] [address] Notes/Report: Keyword See Below AB2GP Beta 2 Gl ycoprotein 1 Antibodies, IgA, Serum [facility] Result See Footnote Test Result Flag Unit RefValue Beta 2 GP1 Ab IgA, S <9.4 JERRY -- REFERENCE VALUE -- <15.0 (Negative) Test Performed by: [facility] [address] [place] [address] Nail Professional: Alejandro Maciel Ph.D.; CLIA# [id number] [facility] Reviewed date:09/14/2024 02:05:02 PM Interpretation: Performing Lab:[facility] , [address] [place] [address]. [facility] [address] Notes/Report: Keyword See Below ACLIP Phospholi pid (Cardiolipin) Antibodies, IgA, Misc Result See Footnote Test Result Flag Unit RefValue Phospholipid Ab IgA, S <9.4 APL -- REFERENCE VALUE -- <15.0 (Negative) Test Performed by: [facility] [address] [place] [address] Nail Professional: Alejandro Maciel Ph.D.; CLIA# [id number] RONY reflex titer pattern MARCY + dsDNA Reviewed date:09/17/2024 11:06:30 AM Interpretation: Performing Lab:[facility] , [address] [place] [address]. [facility] [address] Notes/Report: RONY, Qual Negative Interpretive Data Normal [...] last revised on 2020. Testing performed by: [facility], [address] [place]., [address] Cardio IgG IgM Reviewed date:09/11/2024 12:51:53 PM Interpretation: Performing Lab:[facility] , [address] [place] [address]. [facility] [address] Notes/Report: Interpretive Data Negative: <20 MPL U/mL [...] antibodies. These results were obtained with the [employer] 2200 System. Cardiolipin IgM values obtained with different manufacturers' assay methods may not be used interchangeably. Current interpretive data was last revised on 2017. Cardiolipin Ab, IgG <1.6 <=19.9 GPL U/mL Interpretive Data Negative: <20 GPL U/mL Positive: [...] NI. These results were obtained with the [employer] 2200 System. Cardiolipin IgG values obtained with different manufacturers' assay methods may not be used interchangeably. Current interpretive data was last revised on 2017. Cardiolipin Ab, IgM 0.7 <=19.9 MPL U/mL Reason For Referral No Information Medications Medication [...] 03/25/2025 Encounters Encounter Location Date Provider Diagnosis [facility] [address] [facility] [address] [address] 09/10/2024 Radha Juno Pain in unspecified joint M25.50 ; RONY positive R76.8 and Other low back pain M54.59 [facility] [address] [facility] [address] [address] 09/24/2024 Radha Du Sjogren's syndrome w ith keratoconjunctivitis sicca M35.01 ; 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 and Decreased GFR R94.4 [facility] [address] [facility] [address] [address] 11/13/2024 Radha Du Sjogren's syndrome w ith keratoconjunctivitis sicca M35.01 ; 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 ; Decreased GFR R94.4 and Chronic constipation K59.09 [facility] [address] [facility] [address] [place] [address] 03/25/2025 Radha Du Sjogren's syndrome w ith keratoconjunctivitis sicca M35.01 ; 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 ; Decreased GFR R94.4 and Chronic constipation K59.09 [facility] [address] [facility] [address] [address] 09/24/2024 Radha Du [facility] [address] [facility] [address] [address] 11/08/2024 Radha Juno [facility] [address] [facility] [address] [address] 12/24/2024 Radha Du [facility] [address] [address] 03/25/2025 Radha Du [facility] [address] [facility] [address] [address] 04/16/2025 Radha Du Sjogren's syndrome w ith keratoconjunctivitis sicca M35.01 [facility] [address] [facility] [address] [address] 04/16/2025 Radha Du Assessments Encounter Date Diagnosis [...] End Date [employer] Medicare Hmo [address] [place] [address] [id number] Candice Forde Self - patient is the insured Medical (General) History Medical History History ICD Code abdominal adhesion, calcific ation of spleen, diverticulosis, diverticulitis, hypertension, neuropathy, hyperlipidemia, Schatzki's ring, TMJ dysfunction Surgical History Surgery Date(Month/Year) hysterectomy, appendectomy, bilateral kn ee replacement
[2025-08-30 10:44] VITALS: BP 113/59; PULSE 76; RESP 18; O2SAT 98
== END 2025-08-30 10:45 | disposition home or self-care (01) ==
PROVIDERS: Emergency Provider Registered Nurse; PCP Family Medicine
DX: S06.0X0A Concussion without loss of consciousness, initial encounter (principal); S46.912A Strain of unspecified muscle, fascia and tendon at shoulder and upper arm level, left arm, initial encounter; I10 Essential (primary) hypertension; E78.2 Mixed hyperlipidemia; Z96.653 Presence of artificial knee joint, bilateral; Z90.710 Acquired absence of both cervix and uterus; Z79.899 Other long term (current) drug therapy; W19.XXXA Unspecified fall, initial encounter
CPT/HCPCS: 70450; 72125; 73030; 99284

== ENCOUNTER 2025-09-20 06:29 | Emergency (ER) | payer MEDICARE, SELFPAY ==
--- OUTSIDE RECORDS SUMMARY | 2025-05-29 04:00 | XMS_ITS ---
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 Social History Sex Assigned At : Social History Observation Description Sex Assigned At Female Encounters Encounter Location Date Provider Diagnosis [facility] [employer] [place] [address] [address] 05/29/2025 Teresita Feliciano Plan Of Treatment No Information Progress Notes * Candice ROQUEDOB:[birth year] (85 yo F)Acc No.[id number]:05/29/2025 Patient: Bertha carney Candice Light Provider: Bill FELICIANO LCSW :1940 A ge:84 Y S ex:Female Date:05/29/2025 [address] [facility] Pcp:ANDRE SAMANO MD Data: * Chief Complaints: * 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
--- OUTSIDE RECORDS SUMMARY | 2025-06-24 07:15 | XMS_ITS ---
Author Organization [facility] jose c Address [address] [facility] [address] [place] [address] Care Team Providers Care Xerox Machine Mechanic Name Role Phone Beronica RAHMAN, Gabriela Primary Care Provider Unav ailable Radha Purdy Unavailable [phone] REASON FOR VISIT yd/3 month follow up/flc Encounters Encounter Location Date Provider Diagnosis [facility] [address] [facility] [address] [place] [address] 06/24/2025 Radha Purdy Plan Of Treatment No Information Progress Notes * Candice ROQUEDOB:1940 (85 yo F)Acc No.[id number]:06/24/2025 Progress Notes Patient: Candice GRIFFIN Appointment Provider: Radha PURDY MD :1940 A ge:84 Y S ex:Female Date:06/24/2025 [address] [facility] Pcp:Gabriela Loco MD Subjective: * Chief Complaints: * 1 . Yd/3 month follow up/flc. * Medical History: Objective: * Vitals: Assessment: Plan: * Treatment: * Billing Information: * Visit Code: * Procedure Codes: * Electronic signature of Radha Purdy MD on 09/20/2025 at 07:37 AM BLOOD BANK SPECIALIST Sign off status: Pending * Appointment Provider: Radha PURDY MD Date: 0 06/24/2025 Generated for Printi ng/Faxing/eTransmitting on: 1 11/21/2024 07:37 AM BLOOD BANK SPECIALIST
--- NOTE | ~2025-09-20 | CT_ITS ---
CT HEAD NON-CONTRAST CT C-SPINE Clinical History: fall/ hit head Comparison: CT brain and C-spine 08/30/2025 Technique: Unenhanced axial images skull base to vertex. Coronal, sagittal reformats. Axial images thoracic inlet to skull base. Sagittal and coronal reformats. CT images acquired with automatic exposure control for dose reduction DLP: 605 mGy-cm Findings: Head: Age-related atrophy. Chronic white matter microvascular ischemic changes. Sulci, ventricles: Unremarkable. No intracerebral hemorrhage. No evidence acute territorial infarct. No mass effect, midline shift, intra-/extra-axial fluid collection. Bony calvarium intact. Visualized paranasal sinuses: Clear. Mastoid air cells: Clear. C-spine: No acute fracture. Grade 1 anterolisthesis of C2 on 3, C3 on 4. Moderate degenerative changes and disc disease. Prevertebral soft tissues within normal limits. Visualized lung apices: Clear. Visualized thyroid: Unremarkable. No enlarged cervical nodes. IMPRESSION: HEAD: 1. No acute intracranial findings. C-SPINE: 1. No acute fracture. Reviewed, dictated and finalized at location R. [facility] [employer]TAIN IMPRESSION: HEAD: 1. No acute intracranial findings. C-SPINE: 1. No acute fracture.
[2025-09-20 06:40] VITALS: BP 129/78; PULSE 84; RESP 17; TEMP 36.8; O2SAT 98
--- OUTSIDE RECORDS SUMMARY | 2025-09-20 07:38 | XMS_ITS | Patient Health Record ---
Author Organization [facility] As Suda Address [address] [place] [address] Care Team Providers Care Information Technology Audit Manager Name Role Phone ANDRE LOCO MD Primary Care Provider Hiwot Bermeo Unavailable [phone] Teresita Feliciano Unavailable [phone] Allergies Allergen (clinical drug ingredient) Drug/Non Drug [...] Orally Once a day A ctive Vitamin P66-Nwrnp Acid 500-400 MCG Tablet as directed Orally [...] Status Risk Notes Problem Generalized anxiety disorder (91845579) ROSALES (generalized anxiety disorder) (F41.1) Active confirmed Problem Moderate recurrent major depression (44755822) MDD (major depressive disorder), recurrent episode, moderate (F33.1) Active confirmed Vital Signs Blood pressure diastolic 75 mm Hg 05/06/2025 Weight-kg 63.96 kg 05/06/2025 Blood pressure systolic 121 mm Hg 05/06/2025 Weight 141 lbs 05/06/2025 Encounters Encounter Location Date Provider Diagnosis [address] [address] 05/06/2025 Hiwot Leiva ROSALES (generalized anxiety disorder) F41.1 and MDD (major depressive disorder), recurrent episode, moderate F33.1 [facility] [address] 07/01/2025 Teresita Jodie ROSALES (generalized anxiety disorder) F41.1 and MDD (major depressive disorder), recurrent episode, moderate F33.1 [facility] [address] 05/08/2025 Hiwot Leiva [facility] [address] 07/02/2025 Hiwot Leiva [facility] [address] 07/03/2025 Hiwot Leiva [facility] [address] 05/06/2025 Hiwot Leiva Assessments Encounter Date Diagnosis [...] as augmentation with Rexulti for anxiety, irritability. FPC use of benzodiazepine could be concern for cognition, particularly given family history of dementia increases her risk for development. Recommend limiting use as possible. Could trial sleep aid such as trazodone to replace lorazepam given less risk of detention side effects, falls. Patient educated on all [...] Start Date Coverage End Date [employer] [address] [place] [address] [id number] Dias Self - patient is the insured Medical (General) History Medical History History ICD Code Essential HTN Mixed HLD Surgical History Surgery Date(Month/Year) hysterectomy appendix taken out cateract
--- OUTSIDE RECORDS SUMMARY | 2025-09-20 07:38 | XMS_ITS | Clinical Summary ---
Author Organization [facility] Address [facility] [facility] [place] [address] Care Team Providers Care Executive Secretary Social Welfare Name Role Phone Unavailable Primary Care Provider Unavailabl e Source Comments [facility],non-owned Affiliates and Associated Physician Practices is amultiple site organization consisting of ambulatory clinics and hospital sitesin [place], [place], [place] and [place]. This disclosure is being madepursuant to the Care Everywhere program and may not contain all information available regarding this patient. 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
--- OUTSIDE RECORDS SUMMARY | 2025-09-20 07:38 | XMS_ITS | Clinical Summary ---
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
--- OUTSIDE RECORDS SUMMARY | 2025-09-20 07:38 | XMS_ITS | Patient Health Record ---
Author Organization [facility] jose c Address [address] [facility] [address] [place] [address] Care Team Providers Care Dye Maker Name Role Phone Gabriela Loco MD Primary Care Provider Unav Radha Owens Unavailable [phone] Allergies Allergen (clinical drug ingredient) Drug/Non Drug [...] 09:27:29 PM Interpretation: Performing Lab:[facility] , [facility]. [facility] [address] Notes/Report: eGFR 50 >=60 mL/min/1.73 m2 Interpretive [...] Current interpretive data was last reviewed 2021. Comprehensive metabolic pane l (CMP) Reviewed date:03/25/2025 09:27:29 PM Interpretation: Performing Lab:[facility] , [address] [place] [address]. 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 ; Decreased GFR R94.4 and Chronic constipation K59.09 [facility] [address] [place] [address] 03/25/2025 Radha Fraire Sjogren's syndrome w ith keratoconjunctivitis sicca M35.01 ; 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 ; Decreased GFR R94.4 and Chronic constipation K59.09 [facility] [address] [place] [address] 09/24/2024 Radha Fraire [facility] [address] [place] [address] 11/08/2024 [facility] [address] [place] [address] 12/[facility] [address] [place] [address] 03/25/2025 [facility] [address] [place] [address] 04/16/2025 Radha Fraire Sjogren's syndrome w ith keratoconjunctivitis sicca M35.01 [facility] [address] [place] [address] 04/16/2025 Radha Fraire Assessments Encounter Date Diagnosis (ICD Code) Assessment Notes Treatment Notes Treatment Clinical Notes Section Notes 11/13/2024 Sjogren's syndrome w ith keratoconjunctivitis sicca [...] cussed with patient, has Sjogren's disease and osteoarthritis , on tramadol and celebrex, GFR borderline, will monitor, advised to increase water intake, return in 6 months 09/24/2024 Generalized osteoarthritis (ICD-10 - M15.9) labs discussed with patient, has Sjogren's disease and osteoarthritis , on tramadol and celebrex, GFR borderline, will [...] discussed with patient, has Sjogren's disease and osteoarthritis , on tramadol and celebrex, GFR borderline, will monitor, advised to increase water intake, return in 6 months 11/13/2024 Chronic constipation (ICD-10 - K59.09) advised patient constipation is not a common [...] End Date [employer] Medicare Hmo [address] [place] [id number] Candice Forde Self - patient is the insured Medical (General) History Medical History History ICD Code abdominal adhesion, calcific ation of spleen, diverticulosis, diverticulitis, hypertension, neuropathy, hyperlipidemia, Schatzki's ring, TMJ dysfunction Surgical History Surgery Date(Month/Year) hysterectomy, appendectomy, bilateral kn ee replacement
[2025-09-20 07:39] LABS: Hematocrit 41.3 % (37.0-47.0); Hemoglobin 14.2 g/dL (12.0-15.0); Immature Granulocyte Percent A 0.3 % (0-0.5); Lymphocytes Absolute Auto 2.20 K/mm3 (0.9-3.2); Mean Corpuscular HGB Conc 34.4 g/dl (32-36); Mean Corpuscular Hemoglobin 31.6 pg (26-34); Mean Corpuscular Volume 92.0 fl (80-100); Nucleated Red Blood Cells Absolute Auto 0.000 K/mm3 (0.0-0.012); Nucleated Red Blood Cells Perc 0.0 % (0.0-0.2); Platelet Count Result 226 k/mm3 (150-375); Red Blood Count 4.49 M/mm3 (4.2-5.4); White Blood Count 7.1 K/mm3 (4.5-10.0)
--- NOTE | 2025-09-20 07:42 | ED_ITS ---
HPI - Head Injury General Chief complaint: Head Injury Stated complaint: fall / head injury Time Seen by Provider: 09/20/25 07:04 History of Present Illness HPI Narrative: Patient is an 85-year-old female who presents ER after a fall this morning. She fell and struck her head and has an abrasion above her right eyebrow. She says she was sleepwalking. She had difficulty telling us the year but was able to tell me the year on my evaluation. No history dementia have but has noticed that she has had some cognitive issues recently which bug her. Son is here to also answer questions. Patient had been wearing a cardiac event monitor to make sure there was not cardiac issues related to this. She has been having multiple recurrent falls over last several months. Related Data Home Medications ?Medication ?Instructions ?Recorded ?Confirmed ?Last Taken ?Type Vitamin D BYMOUTH 09/06/25 09/06/25 Un known History Vitman B BYMOUTH 09/06/25 09/06/25 Un known History celecoxib 200 mg capsule (Celebrex) 200 mg PO DAILY 09/06/25 Unknown History Allergies Allergy/AdvReac Type Severity Reaction Status Date / Time metoprolol Allergy Severe MOUTH-Itching, Verified 09/20/25 06:33 SWELLING vilanterol (From Breo Allergy Severe throat Verified 09/20/25 06:33 Ellipta) swelling clotrimazole Allergy Mild MOUTH Verified 09/20/25 06:33 Itching, SWELLING fluticasone furoate (From Allergy Unknown throat Verified 09/20/25 06:33 Breo Ellipta) swelling phentermine (From Suprenza) Allergy MOUTH Verified 09/20/25 06:33 ITCHING, SWELLING anesthesia AdvReac Mild Nausea and Uncoded 09/06/25 14:04 Vomiting Narcotics AdvReac Unknown Vomiting Uncoded 09/06/25 14:04 Review of Systems 2 Review of Systems: All systems reviewed & are unremarkable except as noted in HPI and below Constitutional: Constitutional: Reports no additional constitutional complaints Cardiovascular: Cardiovascular: Reports no additional cardiovascular complaints Respiratory: Respiratory: Reports no additional respiratory complaints Musculoskeletal: Musculoskeletal: Reports no additional musculoskeletal complaints Neurologic: Reports system reviewed and no additional complaints, except as documented PMFSH Past Medical History Medical History Nausea after anesthesia PONV (postoperative nausea and vomiting) Mucous cyst of toe Hallux valgus Hammertoes of both feet Schatzki's ring External hemorrhoids Dysphagia egd 09.14.22: schatzki's ring/ dilated Thrombosed external hemorrhoid Calcification of spleen ct 06.14.22: 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 Irritant dermatitis Overweight (BMI 25.0-29.9) Light-headed feeling Parotid gland fullness Diverticulosis Abdominal adhesions Essential hypertension Hereditary and idiopathic neuropathy, unspecified Other hammer toe(s) (acquired), unspecified foot Bronchitis Diverticulitis Lumbago with sciatica, unspecified side Mixed hyperlipidemia TMJ dysfunction Surgical History Surgical History History of appendectomy H/O total hysterectomy History of bilateral knee replacement Family History Family History Father Depression Family history of suicide Mother Hypertension Family history of cardiovascular disease Other Family history of Alzheimer's disease Social History Social History (Updated 09/06/25 @ 13:27 by Fara Lucas CMA) Smoking status: Never smoker Second hand tobacco smoke exposure: No Alcohol intake: never Substance use: never Substance use type: does not use Lack of Transportation: No Lack of Food: Never True Current Housing: I Have Housing Concerned About Future Housing: No Difficulty Paying Gas/Electric Bills: No Difficulty Paying for Meds: No Currently Unemployed: No Education: Master's Degree or Higher Difficulty w/ Childcare or Family Care: No Living arrangements: alone Gender identity (if verbalized by the patient): Female Sexual Orientation (if Verbalized by the Patient): Straight or Heterosexual Spiritual care concerns: No Exam 2 Narrative: GENERAL: Well-appearing, well-nourished, and in no acute distress. HEAD: Normocephalic, atraumatic. EYES: PERRL and EOMI. Abrasion above right eye. ENT: Mucous membranes moist. NECK: Supple. No midline tenderness. CHEST: Clear to auscultation. No respiratory distress. HEART: Regular rate and rhythm. Normal peripheral pulses. ABDOMEN: Soft, nontender, nondistended. EXTREMITIES: Normal range of motion. No edema. SKIN: Warm, dry, no rash. NEURO: Alert and oriented x3. PSYCH: Normal mood and affect. Course Course Emergency Course: Patient with an unremarkable evaluation with normal lab work and imaging. Appropriate for discharge home. Ambulates with a steady gait. Vital Signs Vital signs: Vital Signs Temperature 98.3 F 09/20/25 06:40 Pulse Rate 84 09/20/25 06:40 Respiratory Rate 17 09/20/25 06:40 Blood Pressure 129/78 09/20/25 06:40 Pulse Oximetry 98 09/20/25 06:40 Oxygen Delivery Room Air 09/20/25 06:40 Temperature 98.3 F 09/20/25 06:40 Pulse Rate 88 09/20/25 07:46 Respiratory Rate 17 09/20/25 06:40 Blood Pressure 148/85 H 09/20/25 07:46 Pulse Oximetry 98 09/20/25 06:40 Oxygen Delivery Room Air 09/20/25 06:40 MDM Differential Diagnosis Differential Diagnosis: Intracranial hemorrhage, concussion, dehydration, orthostasis, UTI Lab Data [facility] Lab Attestation statement: I personally reviewed the patient's lab results. 09/20/25 07:34 09/20/25 07:34 Labs: Lab Results 09/20/25 09/20/25 Range/Units 07:34 07:55 WBC 7.1 (4.5-10.0) K/mm3 RBC 4.49 (4.2-5.4) M/mm3 Hgb 14.2 (12.0-15.0) g/dL Hct 41.3 (37.0-47.0) % MCV 92.0 (80-100) fl MCH 31.6 (26-34) pg MCHC 34.4 (32-36) g/dl RDW 12.3 (11.5-14.5) % Plt Count 226 (150-375) k/mm3 MPV 9.1 (7.4-10.4) fl Immature Gran % (Auto) 0.3 (0-0.5) % Neut % (Auto) 60.4 (45.5-73.1) % Lymph % (Auto) 31.0 (18.3-44.2) % Addison % (Auto) 6.6 (2.6-8.5) % Eos % (Auto) 1.3 (0-4.4) % Baso % (Auto) 0.4 (0.2-1.2) % Lymph # (Auto) 2.20 (0.9-3.2) K/mm3 Addison # (Auto) 0.5 (0.1-0.6) K/mm3 Eos # (Auto) 0.1 (0-0.3) K/mm3 Baso # (Auto) 0.0 (0.0-0.1) K/mm3 Abs Immat Gran (auto) 0.02 (0.00-0.031) K/mm3 Absolute Neuts (auto) 4.3 (1.3-6.7) K/mm3 Absolute Nucleated RBC 0.000 (0.0-0.012) K/mm3 Nucleated RBC % 0.0 (0.0-0.2) % Sodium 141 (137-145) mmol/L Potassium 3.8 (3.4-5.0) mmol/L Chloride 109 H (98-107) mmol/L Carbon Dioxide 25 (22-30) mmol/L Anion Gap 7 (4-12) mmol/L BUN 16 (7-17) mg/dL Creatinine 0.66 L (0.7-1.0) mg/dL Estim Creat Clear Calc 46 ml/min Estimated GFR > 60 (59 - ) Glucose 103 (65-110) mg/dL Calcium 9.4 (8.4-10.2) mg/dL Urine Color Yellow (Yellow) Urine Appearance Clear (Clear) Urine pH 6.5 (5.0-9.0) Ur Specific Harwood 1.006 (1.001-1.035) Urine Protein Negative (Negative) mg/dL Urine Glucose (UA) Negative (Negative) mg/dL Urine Ketones Negative (Negative) mg/dL Ur Blood (Man) Negative (Negative) Urine Nitrate Negative (Negative) Urine Bilirubin Negative (Negative) Urine Urobilinogen 0.2 (<2.0) mg/dL Add Ur Microanalysis Reviewed Leukocyte Esterase Rfl 1+ H (Negative) ALDEN/UL Urine RBC 0-2 (0-2) /hpf Urine WBC 0-5 (0-3) /hpf Ur Squamous Epith Cells None seen (Few) /hpf Urine Bacteria None seen /hpf Urine Casts 0-2 Imaging Data Radiologist's impression: ITS Impressions Cervical Spine CT 09/20/25 07:14 IMPRESSION: HEAD: 1. No acute intracranial findings. C-SPINE: 1. No acute fracture. Head CT 09/20/25 07:14 IMPRESSION: HEAD: 1. No acute intracranial findings. C-SPINE: 1. No acute fracture. Discharge Plan Discharge Clinical Impression: Abrasion of forehead Patient Disposition: Home Condition: Stable Instructions: Abrasion (ED) Additional Instructions: Return ER if you suffered a new injury, have chest pain shortness of breath, you cannot keep down food water, or you have additional concerns. Patient Language: Urdu Prescriptions: No Action celecoxib [Celebrex] 200 mg capsule 200 mg PO DAILY Vitamin D BYMOUTH Vitman B BYMOUTH atenolol 50 mg tablet 50 mg PO DAILY Qty: 180 2RF lorazepam 1 mg tablet 1 mg PO TID PRN (Reason: anxiety) Qty: 90 4RF tramadol 50 mg tablet 50 mg PO Q6H PRN (Reason: pain) 30 Days Qty: 30 2RF amlodipine-atorvastatin 10-20 mg tablet 1 tablet PO DAILY Qty: 90 1RF bupropion HCl 300 mg tablet extended release 24 hr 300 mg PO QAM Qty: 90 1RF Linzess 72 mcg capsule 72 mcg PO DAILY Qty: 30 1RF Follow-up/Referrals: Gabriela Loco MD [Primary Care Provider, Family Practice] - 1 Week
[2025-09-20 07:43] VITALS: BP 126/58; PULSE 83
[2025-09-20 07:44] VITALS: BP 147/78; PULSE 84
[2025-09-20 07:46] VITALS: BP 148/85; PULSE 88
[2025-09-20 08:02] LABS: Anion Gap 7 mmol/L (4-12); Blood Urea Nitrogen 16 mg/dL (7-17); Calcium 9.4 mg/dL (8.4-10.2); Carbon Dioxide 25 mmol/L (22-30); Chloride 109 mmol/L (98-107); Estimated CRCL calculation 46 ml/min; Estimated Glomerular Filt Rate > 60; Glucose 103 mg/dL (65-110); Potassium 3.8 mmol/L (3.4-5.0); Sodium 141 mmol/L (137-145)
[2025-09-20 08:13] LABS: Add Urine Microscopic? YES; Appearance Urine Clear (Clear); Glucose Urine UA Negative (Negative); Leukocyte Esterase Ur 1+ LEU/UL (Negative); Need Manual Microscopic Reviewed; Nitrate Urine Negative (Negative); Non Pathogenic Casts 0-2; Specific Grav Ur 1.006 (1.001-1.035)
[2025-09-20 09:04] VITALS: BP 128/86; PULSE 90; RESP 16; O2SAT 98
== END 2025-09-20 09:08 | disposition home or self-care (01) ==
PROVIDERS: Emergency Provider Emergency Medicine; PCP Family Medicine
DX: S00.81XA Abrasion of other part of head, initial encounter (principal); W18.30XA Fall on same level, unspecified, initial encounter; Z91.81 History of falling; R82.90 Unspecified abnormal findings in urine; E78.2 Mixed hyperlipidemia; I10 Essential (primary) hypertension
CPT/HCPCS: 36415; 70450; 72125; 80048; 81001; 85025; 87086; 99284